=== PATIENT | female | born 1945 | race Caucasian/White ===

== ENCOUNTER 2020-10-02 08:04 | Outpatient (REF) | payer MEDICARE, SELFPAY ==
[2020-10-02 11:30] LABS: MANUAL DIFF FLAG NO
[2020-10-02 11:49] LABS: Basophils Percent Auto 0.4 % (0-2); Eosinophils Absolute Auto 0.2 X10*3/uL (0.0-0.4); Eosinophils Percent Auto 1.9 % (0-4); Hemoglobin 14.7 g/dl (12.0-16.0); Imm Gran Abs Auto 0.02 X10*3/uL (0.00-0.03); Imm Gran Pct Auto 0.2 % (0.0-0.4); Lymphocytes Absolute Auto 2.6 X10*3/uL (1.2-4.9); Lymphocytes Percent Auto 26.7 % (20-40); Mean Corpuscular HGB Conc 32.7 g/dl (31.0-35.0); Mean Corpuscular Hemoglobin 30.1 pg (27.0-33.0); Mean Platelet Volume 12.1 fL (9.4-12.3); Monocytes Absolute Auto 0.6 X10*3/uL (0.1-1.2); Monocytes Percent Auto 6.5 % (2-11); Neutrophils Absolute Auto 6.3 X10*3/uL (2.0-8.3); Neutrophils Percent Auto 64.3 % (45-73); Platelet Count 220 X10*3/uL (160-400); Red Blood Count 4.89 X10*6/uL (4.20-5.50); Red Cell Distribution Width 17.5 % (11.0-16.0); White Blood Count 9.8 X10*3/uL (4.8-10.8)
[2020-10-02 12:11] LABS: Alanine Aminotransferase 38 U/L (0-31); Albumin Level 3.8 g/dL (3.5-5.0); Alkaline Phosphatase 96 U/L (39-117); Anion Gap 14 (12-20); Aspartate Amino Transferase 34 U/L (5-31); Bilirubin Total 0.4 mg/dL (0.0-1.0); Blood Urea Nitrogen 20 mg/dL (9-16); Calcium 8.8 mg/dL (8.4-10.2); Carbon Dioxide 29 mmol/L (22-29); Chloride 102 mmol/L (96-108); Cholesterol 167 mg/dL; Estimated Glomerular Filt Rate 56; Glucose Fasting 115 mg/dL (60-99); HDL Cholesterol 48 mg/dL; LDL Cholesterol Calculated 95 mg/dl; Potassium 4.2 mmol/l (3.3-5.1); Sodium 141 mmol/L (135-145); Total Protein 6.6 g/dL (6.5-8.0); Triglycerides 121 mg/dL
[2020-10-02 12:18] LABS: Estimated Average Glucose 131 mg/dL; Hemoglobin A1c % 6.2 %
[2020-10-02 12:21] LABS: Reflex LDLD? No
[2020-10-02 12:27] LABS: Thyroid Stimulating Hormone 5.33 uIU/mL (0.32-4.0)
[2020-10-02 12:40] LABS: Appearance Urine CLOUDY; Color Urine YELLOW; Glucose Urine UA NEG (NEG); Leukocyte Esterase Urine NEG (NEG); Nitrite Urine NEG (NEG); Specific Gravity - Urine >= 1.030 (1.005-1.025); Urine Blood NEG (NEG); Urine Ketones 5 MG/DL (NEG); Urine Protein 3+ MG/DL (NEG-TRACE)
[2020-10-02 12:45] LABS: Creatinine Urine 178.98 mg/dL
[2020-10-02 13:16] LABS: Bacteria Urine 1+ /LPF; RBC Urine 0-2 /HPF (0); Squamous Epithelial Cell Urine 3+ /LPF; WBC Urine 0-2 /HPF (0-4)
[2020-10-02 13:25] LABS: Microalbum/Creatinine Ratio Ur 1585.6 ug/mg cr
== END 2020-10-02 08:05 | disposition home or self-care (01) ==
LOC: HO.HMGCLDS 08:04
PROVIDERS: PCP Internal Medicine; Visit Provider Internal Medicine
DX: Z00.00 Encounter for general adult medical examination without abnormal findings (principal); R73.03 Prediabetes; E03.9 Hypothyroidism, unspecified; E78.00 Pure hypercholesterolemia, unspecified
CPT/HCPCS: 36415; 80053; 80061; 81001; 81003; 82043; 83036; 84443; 85025

== ENCOUNTER 2020-10-23 09:31 | Outpatient (REF) | payer MEDICARE, SELFPAY ==
--- NOTE | ~2020-10-23 | CT_ITS ---
EXAMINATION: CT CHEST WITHOUT CONTRAST CLINICAL INFORMATION: Pleural effusion COMPARISON: Previous chest x-ray most recent October 2019 and chest CTA September 2019 TECHNIQUE: Multidetector volumetric CT imaging of the chest was done. Axial MIP volume rendering provided. Sagittal and coronal reformatted images were obtained. This CT examination was performed using dose optimization techniques as appropriate, variously including the following: *Automated exposure control *Adjustment of mA and/or kV according to patient size (this includes techniques or standardized protocols for targeted exams where dose is matched to indication/reason for exam; i.e. extremities or head) *Use of iterative reconstruction technique DLP: 150 mGy-cm FINDINGS: LUNGS: There are innumerable bilateral pulmonary nodules. Comparison with previous CT scan is difficult due to presence of bilateral pleural effusions. Evaluation of the upper lungs is limited due to respiratory motion. There are numerous small bilateral upper lobe nodules, largest measuring 4 mm in the left upper lobe axial image 148 series 5. There is a 1 cm nodule in the superior segment of the left lower lobe with spiculated margins axial image 193 series 5. This probably corresponds to a 4 mm nodule on September 2019 exam axial image 163 series 7 and is increased in size. There is a lobulated 9 mm left lower lobe nodule axial image 394 series 5. There is an adjacent lobulated peripheral or subpleural 5 x 12 mm left lower lobe nodule axial image 409 series 5. These nodules may be decreased in size compared to September 2019 exam, axial image 303 21 series 7 on September 2019 exam. MEDIASTINUM: There is shotty mediastinal lymphadenopathy. The heart is enlarged. There is a small pericardial effusion. There is moderate coronary artery calcification. There is mild aortic valve calcification. The ascending thoracic aorta is upper normal in size measuring 4 cm. There are small mediastinal lymph nodes. Appears similar to previous exam. No enlarged lymph nodes are seen. PLEURA: There is a small right pleural effusion. This is decreased from previous exam. There is no left pleural effusion. AXILLA: No lymphadenopathy. UPPER ABDOMEN: Unremarkable. OSSEOUS STRUCTURES: There are degenerative changes of the spine. CT/CT chest wo con IMPRESSION: Very small right pleural effusion. No left pleural effusion. Pleural effusions have decreased in size compared to September 2019 exam. Innumerable bilateral pulmonary nodules. These are difficult to compare with previous CT exam due to the presence of significant pleural effusions. 1 cm nodule in the superior segment of the left lower lobe probably increased from previous exam. 2 adjacent lobulated nodules in the left lower lobe that are probably decreased in size from previous September 2019 exam. Infectious, inflammatory and neoplastic processes should be considered. Short-term chest CT follow-up in 3-6 months, PET/CT scan, or tissue sampling could be considered. Shotty mediastinal lymphadenopathy. Enlarged heart. Coronary artery artery and aortic valve calcification. Small pericardial effusion.
== END 2020-10-23 09:32 | disposition home or self-care (01) ==
LOC: HO.CT 09:31
PROVIDERS: PCP Internal Medicine; Visit Provider Internal Medicine
DX: J90 Pleural effusion, not elsewhere classified (principal)
CPT/HCPCS: 71250

== ENCOUNTER → 2020-11-30 10:23 | Outpatient (BNVA) | payer MEDICARE, SELFPAY | PROVIDERS: PCP Internal Medicine; Visit Provider Surgery | DX: R91.1 Solitary pulmonary nodule (principal); I48.91 Unspecified atrial fibrillation; Z87.891 Personal history of nicotine dependence; Z79.01 Long term (current) use of anticoagulants; Z79.899 Other long term (current) drug therapy | CPT/HCPCS: 99212 ==

== ENCOUNTER 2020-12-11 09:13 | Outpatient (REF) | payer MEDICARE, SELFPAY ==
--- NOTE | ~2020-12-11 | PE_ITS ---
EXAMINATION: Fluorine-18 FDG PET/CT Scan CLINICAL INDICATION: Initial treatment management. Solitary pulmonary nodule. PROCEDURE: 76 minutes following the intravenous administration of 16.1 mCi of fluorine 18 FDG, images from the base of the skull to the mid thighs were obtained using a combined PET/CT scanner with CT scan based attenuation correction. No oral contrast was administered. No intravenous contrast was administered. Transverse, coronal, sagittal, and volume reconstruction projections were obtained. The patient's blood glucose as determined by a finger stick, was 115 mg/dl immediately prior to injection. Total CT exam dose-length product 638.70 mGy-cm * These CT images were obtained using dose optimization techniques as appropriate, variously including the following: Automated exposure control * Adjustment of mA and/or kV according to patient size (this includes techniques or standardized protocols for targeted exams where dose is matched to indication/reason for exam; i.e. extremities or head) * Use of iterative reconstruction technique COMPARISON: No previous PET/CT scan is available for comparison. CT scan of the chest dated 10/23/2020 is available for comparison. FINDINGS: (Slice numbers described in this report are numbered superiorly to inferiorly with slice #1 in the head) NECK AND VISUALIZED HEAD: No foci of abnormal FDG activity are noted. The distribution of FDG activity is physiological. There is no cervical lymphadenopathy. THORAX: There is a mildly FDG avid 1.2 x 1.0 cm pulmonary nodule in the medial aspect of the superior segment of the left lower lobe, SUVmax 2.9, slice 78/267. This nodule is not significantly changed compared with the recent diagnostic CT scan of the chest dated 10/23/2020. Multiple additional much smaller subcentimeter pulmonary nodules are present bilaterally, and these were better visualized on the 10/23/2020 CT scan. The largest of these subcentimeter nodules is a 0.4 cm nodule in the left upper lobe, slice 73/267. All of these subcentimeter nodules are much too small to be characterized on the FDG PET images. There are no additional foci of abnormal FDG activity present in the chest. A few subcentimeter mediastinal lymph nodes are present and none of these show abnormal FDG activity. There is no pleural or pericardial fluid, or pneumothorax. ABDOMEN AND PELVIS: No foci of abnormal FDG activity are present in the abdomen or pelvis. There is FDG activity of mild intensity present throughout the gastrointestinal tract, most prominently diffuse activity in the stomach. There is no focal component in the gastrointestinal tract and all this activity is likely physiological. There is diverticulosis without evidence of diverticulitis. The hollow viscera are otherwise unremarkable. The liver, gallbladder, spleen, kidneys, adrenal glands, and pancreas appear unremarkable. The pelvic organs are unremarkable. There is no retroperitoneal, mesenteric, pelvic or inguinal lymphadenopathy. MUSCULOSKELETAL: There is mildly increased FDG activity in the glenohumeral articulation of the right shoulder likely arthritic. No other foci of abnormal FDG activity are present in the osseous structures. There are degenerative changes in the spine and a mild thoracolumbar scoliosis is present with lumbar convexity to the right. There are no suspicious sclerotic or lytic lesions visualized. VASCULAR: Diffuse vascular calcifications including coronary are noted. PET/PET CT fusion skull to thigh IMPRESSION: 1. An FDG avid left lower lobe pulmonary nodule is strongly suspicious for malignancy. Biopsy of this nodule is recommended, if clinically indicated. 2. Multiple additional subcentimeter nodules are present as described above and better visualized on the recent 10/23/[address] scan. All of these are too small to be characterized on the FDG PET images. Continued monitoring of these with diagnostic CT imaging is recommended. 3. No additional abnormalities suspicious for metastatic or other malignant lesions are noted. 4. Diffuse vascular calcifications including coronary.
== END 2020-12-11 09:14 | disposition home or self-care (01) ==
LOC: HO.PET 09:13
PROVIDERS: PCP Internal Medicine; Visit Provider Surgery
DX: Z13.89 Encounter for screening for other disorder (principal)

== ENCOUNTER 2020-12-14 08:38 | Outpatient (REF) | payer MEDICARE, SELFPAY ==
--- NOTE | ~2020-12-14 | MM_ITS ---
EXAMINATION: MM SCREENING DIGITAL BREAST TOMOSYNTHESIS, BILATERAL CLINICAL INFORMATION: Screening. Asymptomatic. The lifetime risk of breast cancer based on the Tyrer-Cuzick Model is 3%. COMPARISON: Mammography: 09/06/2019, 08/30/2018, 04/16/2017 TECHNIQUE: Digital breast tomosynthesis is performed in both the craniocaudal and mediolateral oblique views along with computer-aided detection (CAD). Synthesized 2D images are generated from the tomosynthesis. FINDINGS: There are scattered areas of fibroglandular density (ACR BI-RADS breast composition Category b). The left breast shows no interval mass or architectural abnormality. There is stable small nodularity likely intraparenchymal nodes mid outer and mid inner left breast similar to prior studies. Neither breast shows abnormal calcifications. The bilateral axilla and skin contours are unremarkable. The right breast has a 0.6 cm nodule mid upper outer quadrant, approximately 5 cm from nipple, increased in size from prior studies. There may be a fatty notch suggesting intraparenchymal node. Patient will be recalled for additional imaging. MM/MM tomosynthesis screening BI IMPRESSION: 1. Right: Nodule 0.6 cm upper outer quadrant possibly intraparenchymal node. 2. Left: No mammographic evidence of malignancy. ASSESSMENT: BI-RADS 0: Incomplete - Need Additional Imaging Evaluation RECOMMENDATION: 1. Additional views of the right breast (3-D spot CC, 3-D spot MLO). 2. Targeted ultrasound if warranted after review of the additional views. 3. Radiology department staff will contact the patient for additional imaging. This patient's information was entered into a reminder system with a target due date for their next mammogram.
== END 2020-12-14 08:39 | disposition home or self-care (01) ==
LOC: HO.MAMMO 08:38
PROVIDERS: PCP Internal Medicine; Visit Provider Internal Medicine
DX: Z12.31 Encounter for screening mammogram for malignant neoplasm of breast (principal)
CPT/HCPCS: 77063; 77067

== ENCOUNTER → 2020-12-21 09:11 | Outpatient (BNVA) | payer MEDICARE, SELFPAY | PROVIDERS: PCP Internal Medicine; Visit Provider Surgery | DX: R91.1 Solitary pulmonary nodule (principal); Z79.899 Other long term (current) drug therapy; Z79.82 Long term (current) use of aspirin; Z79.01 Long term (current) use of anticoagulants | CPT/HCPCS: 99212 ==

== ENCOUNTER 2020-12-28 13:46 | Outpatient (REF) | payer MEDICARE, SELFPAY ==
--- NOTE | 2020-12-28 13:51 | ECG_ITS ---
Test Reason : AFIB Blood Pressure : / mmHG Vent. Rate : 075 BPM Atrial Rate : 078 BPM P-R Int : 000 ms QRS Dur : 106 ms QT Int : 376 ms P-R-T Axes : 000 057 219 degrees QTc Int : 419 ms Atrial fibrillation with premature ventricular or aberrantly conducted complexes ST & T wave abnormality, consider inferior ischemia Abnormal ECG When compared with ECG of 07-DEC-2019 10:19, Atrial fibrillation has replaced Sinus rhythm Vent. rate has increased BY 33 BPM Questionable change in QRS axis Referred By: Owen Molina Electronically Signed By:Dalton Sharma
[2020-12-28 14:08] LABS: MANUAL DIFF FLAG NO
[2020-12-28 14:12] LABS: Basophils Absolute Auto 0.1 X10*3/uL (0.0-0.2); Basophils Percent Auto 0.5 % (0-2); Eosinophils Absolute Auto 0.1 X10*3/uL (0.0-0.4); Eosinophils Percent Auto 0.8 % (0-4); Hemoglobin 14.5 g/dl (12.0-16.0); Imm Gran Abs Auto 0.02 X10*3/uL (0.00-0.03); Imm Gran Pct Auto 0.2 % (0.0-0.4); Lymphocytes Absolute Auto 2.1 X10*3/uL (1.2-4.9); Mean Corpuscular Hemoglobin 31.2 pg (27.0-33.0); Mean Corpuscular Volume 94.6 fL (80-98); Mean Platelet Volume 11.8 fL (9.4-12.3); Monocytes Absolute Auto 0.7 X10*3/uL (0.1-1.2); Monocytes Percent Auto 7.3 % (2-11); Neutrophils Absolute Auto 6.3 X10*3/uL (2.0-8.3); Neutrophils Percent Auto 68.2 % (45-73); Platelet Count 205 X10*3/uL (160-400); Red Blood Count 4.65 X10*6/uL (4.20-5.50); Red Cell Distribution Width 17.2 % (11.0-16.0); White Blood Count 9.3 X10*3/uL (4.8-10.8)
[2020-12-28 14:18] LABS: INTERNATIONAL NORM RATIO 1.4 (0.9-1.1); Prothrombin Time 16.5 SEC (10.8-13.0)
[2020-12-28 14:37] LABS: Blood Urea Nitrogen 19 mg/dL (9-16); Estimated Glomerular Filt Rate 53
== END 2020-12-28 13:47 | disposition home or self-care (01) ==
LOC: HO.LAB 13:46
PROVIDERS: PCP Internal Medicine; Visit Provider Surgery
DX: Z01.810 Encounter for preprocedural cardiovascular examination (principal); I48.91 Unspecified atrial fibrillation; R91.1 Solitary pulmonary nodule
CPT/HCPCS: 36415; 82565; 84520; 85025; 85610; 93005

== ENCOUNTER 2021-01-09 13:05 | Outpatient (REF) | payer MEDICARE, SELFPAY ==
--- NOTE | ~2021-01-09 | MM_ITS ---
EXAMINATION: MM DIAGNOSTIC DIGITAL BREAST TOMOSYNTHESIS, RIGHT US TARGETED RIGHT BREAST ULTRASOUND CLINICAL INFORMATION: Right breast nodule. COMPARISON: Mammography: 12/14/2020 and studies dating back to 03/16/2015. TECHNIQUE: Digital breast tomosynthesis is performed. 2D images are generated from the tomosynthesis. The following views are obtained: Spot compression craniocaudal and mediolateral oblique projections. Targeted right breast ultrasound. FINDINGS: There are scattered areas of fibroglandular density (ACR BI-RADS breast composition Category b). Additional views again demonstrate a few adjacent circumscribed densities about the upper outer aspect of the right breast the largest of which measures approximately 5 mm in diameter. Targeted right breast ultrasound demonstrates some adjacent well-circumscribed homogeneously echogenic structures with the appearance of lipomas about the upper outer quadrant. No suspicious solid mass or region of abnormal distal sound shadowing was appreciated. Results are discussed with the patient at time of visit. MM/MM tomosynthesis added views R IMPRESSION: Right breast densities correspond to a homogeneously hyperechoic structures consistent with lipomas. ASSESSMENT: BI-RADS 2: Benign. RECOMMENDATION: Routine annual mammography screening due in 12 months. This patient's information was entered into a reminder system with a target due date for their next mammogram.
--- NOTE | ~2021-01-09 | US_ITS ---
EXAMINATION: US DIAGNOSTIC ULTRASOUND BREAST, RIGHT CLINICAL INFORMATION: Nodules upper outer quadrant. COMPARISON: Mammography of same day and studies dating back to March 16, 2015. TECHNIQUE: Ultrasound of the breast is performed with real-time bloom scale imaging and color Doppler. FINDINGS: Targeted right breast ultrasound demonstrates some adjacent well-circumscribed homogeneously echogenic structures with the appearance of lipomas about the upper outer quadrant. No suspicious solid mass or region of abnormal distal sound shadowing was appreciated. Results are discussed with the patient at time of visit. US/US breast RT limited IMPRESSION: Right breast densities correspond to homogeneously hyperechoic structures consistent with lipomas. ASSESSMENT: BI-RADS 2: Benign RECOMMENDATION: Routine annual mammography screening due in 12 months.
== END 2021-01-09 13:06 | disposition home or self-care (01) ==
LOC: HO.MAMMO 13:05
PROVIDERS: Visit Provider Internal Medicine
DX: R92.2 Inconclusive mammogram (principal)
CPT/HCPCS: 76642; 77061; 77065

== ENCOUNTER 2021-02-08 08:23 | Outpatient (REF) | payer MEDICARE, SELFPAY ==
--- NOTE | ~2021-02-08 | XR_ITS ---
EXAMINATION: XR CHEST CLINICAL INFORMATION: Solitary pulmonary nodule COMPARISON: None TECHNIQUE: 2 views of the chest were obtained. FINDINGS: The lungs are hyperexpanded and clear. There is minimal bibasilar linear density likely scarring or atelectasis. The heart size and pulmonary vascularity is normal. No gross bony abnormality seen. XR/XR chest 2V IMPRESSION: Minimal atelectatic changes or scarring in both lung bases. Otherwise no acute process
== END 2021-02-08 08:24 | disposition home or self-care (01) ==
LOC: HO.XRAY 08:23
PROVIDERS: PCP Internal Medicine; Visit Provider Surgery
DX: R91.1 Solitary pulmonary nodule (principal); C34.32 Malignant neoplasm of lower lobe, left bronchus or lung; I48.91 Unspecified atrial fibrillation
CPT/HCPCS: 71046

== ENCOUNTER → 2021-03-01 08:26 | Outpatient (BNVA) | payer MEDICARE, SELFPAY | PROVIDERS: PCP Internal Medicine; Visit Provider Surgery | DX: C34.32 Malignant neoplasm of lower lobe, left bronchus or lung (principal); Z79.899 Other long term (current) drug therapy; Z48.813 Encounter for surgical aftercare following surgery on the respiratory system; Z90.2 Acquired absence of lung [part of] | CPT/HCPCS: 99212 ==

== ENCOUNTER → 2021-03-22 08:55 | Outpatient (BNVA) | payer MEDICARE, SELFPAY | PROVIDERS: PCP Internal Medicine; Visit Provider Surgery | DX: C34.32 Malignant neoplasm of lower lobe, left bronchus or lung (principal); Z79.899 Other long term (current) drug therapy; Z90.2 Acquired absence of lung [part of] | CPT/HCPCS: 99212 ==

== ENCOUNTER → 2021-05-09 11:31 | Outpatient (BNVA) | payer MEDICARE, SELFPAY | PROVIDERS: PCP Internal Medicine; Visit Provider Hospitalist | DX: R06.00 Dyspnea, unspecified (principal) | CPT/HCPCS: 99211 ==

== ENCOUNTER 2021-05-21 09:28 | Inpatient (IN) | payer MEDICARE, SELFPAY ==
[2021-05-21] VITALS (9 sets, daily range): BP systolic 112–154; BP diastolic 50–65; PULSE 62–108; RESP 18–24; TEMP 36.2–37.1; O2SAT 94–98; BMI 27.9
--- NOTE | ~2021-05-21 | XR_ITS ---
EXAMINATION: XR CHEST CLINICAL INFORMATION: Left-sided post thoracentesis COMPARISON: CT angiogram 05/21/2021 TECHNIQUE: 2 views of the chest were obtained. FINDINGS: Inspiration and expiration views of chest were obtained and reveal significant improvement in the left pleural effusion. There is some residual pleural effusion with haziness and blunting of CP angle noted. The heart size is normal. There is increased bilateral interstitial markings in both lungs likely interstitial pneumonitis or edema. Recent CT revealed multiple bilateral lung micronodules. No gross bony abnormality seen. The chest wall is unremarkable. XR/XR chest 2V IMPRESSION: Interval decrease in left pleural effusion status post thoracentesis. No visible pneumothorax. There is residual left pleural effusion seen. Increase interstitial markings likely interstitial pneumonitis, less likely edema.
--- NOTE | ~2021-05-21 | US_ITS ---
EXAMINATION: US GUIDED LEFT THORACENTESIS CLINICAL INFORMATION: SOB and effusion. COMPARISON: None TECHNIQUE: Following explaining ultrasound-guided left thoracentesis procedure, benefits and risk, a written consent was obtained. Patient was placed sitting upright on ultrasound stretcher, and preliminary ultrasound imaging was obtained through the posterior chest. An optimal site was selected along a posterior axillary line and marked on the skin. The marked site was cleaned and draped in the usual sterile manner. 1% lidocaine was injected at the puncture site. Through a small skin incision, a 4-[employer] catheter was advanced into the pleural space. After observing fluid return, stylet was withdrawn and catheter connected to a vacuum bottle via a connecting cannula. After obtaining all fluid and no more fluid return was seen, the catheter was withdrawn making sure no air leaked in. Sterile dressing applied postprocedure. Patient tolerated the procedure extremely well. FINDINGS: On preliminary ultrasound imaging, there is echogenic fluid with septations visualized within the pleural space. Approximately 2.1 L of katia-colored fluid was drained from the left pleural space. US/US thoracentesis IMPRESSION: Successful ultrasound-guided left thoracentesis performed with approximately 2.1 L of katia-colored fluid removed. Part of this fluid was sent to lab as per physician's request for further analysis.
--- NOTE | ~2021-05-21 | CT_ITS ---
EXAMINATION: CT ANGIOGRAM OF THE CHEST WITH AND WITHOUT CONTRAST (CT PULMONARY ANGIOGRAM FOR PE) CLINICAL INFORMATION: Reason for Exam rule out pe shortness of breath. COMPARISON: Previous chest x-rays most recent from earlier the same day and previous chest CT October 2020 TECHNIQUE: Prior to contrast administration, noncontrast localization images were obtained. Subsequently, multidetector volumetric imaging was performed from the thoracic inlet to below the diaphragms following the administration of 63 mL Omnipaque 350 intravenous contrast. No contrast reaction reported Sagittal, coronal, and MIP oblique sagittal reformatted images were obtained on the CT workstation, uploaded to PACS, and reviewed. This CT examination was performed using dose optimization techniques as appropriate, variously including the following: *Automated exposure control *Adjustment of mA and/or kV according to patient size (this includes techniques or standardized protocols for targeted exams where dose is matched to indication/reason for exam; i.e. extremities or head) *Use of iterative reconstruction technique Total exam dose-length product 276 mGy-cm FINDINGS: QUALITY OF STUDY/CONTRAST BOLUS: Satisfactory. PULMONARY ARTERIES: No central or segmental pulmonary emboli. THORACIC AORTA: No aneurysm or dissection. LUNG: There are innumerable small bilateral pulmonary nodules. Largest pulmonary nodule measures 5 mm in the right lower lobe axial image 335 series 8 and 9 mm in the left upper lobe axial image 221 series 8. Pulmonary nodules appear increased in number compared to previous exam October 2020 There is compressive atelectasis of the left upper and left lower lobes from the large left pleural effusion.. PLEURA: There is a new large left pleural effusion. MEDIASTINUM: There are small mediastinal lymph nodes. No enlarged lymph nodes are seen. The heart is slightly enlarged. There is no pericardial effusion. There is coronary artery calcification. The thoracic aorta is normal in caliber. No evidence of septal bowing or right heart strain. CHEST WALL/AXILLA: No axillary or internal mammary lymphadenopathy. OSSEOUS STRUCTURES: There is kyphoplasty change of the T11 vertebral body. There is slight loss of height of superior endplate of the T8 T12 vertebral body questionable for mild compression fracture. There are fractures of the left anterior eighth and ninth ribs. These findings are new in the interval from October 2020 exam. UPPER ABDOMEN: There is fullness of the left adrenal gland. There may be mild fullness of the bilateral upper pole renal calyces. There is reflux of contrast into the hepatic veins to suggest elevated right heart pressures. CT/CT angio chest PE protocol IMPRESSION: No evidence of pulmonary embolism. New large left pleural effusion and compressive atelectasis of the left upper and lower lobes. Interval increase in pulmonary nodules. Left anterior eighth and ninth rib fractures, question mild T12 compression fracture and T11 vertebral body kyphoplasty new in the interval from October 2020 VTE: negative
--- NOTE | ~2021-05-21 | XR_ITS ---
EXAMINATION: XR CHEST CLINICAL INFORMATION: Shortness of breath COMPARISON: Chest radiographs 02/08/2021, 10/28/2019, CT chest noncontrast 11/20/2020, PET/CT 12/11/2020. TECHNIQUE: Portable upright AP view of the chest was obtained. FINDINGS: There is new opacity left mid and lower zone likely primarily pleural effusion. There is generalized enlargement cardiopericardial silhouette with pulmonary vascular congestion. The right lung shows no lobar or segmental airspace opacity or focal groundglass opacity. There may be some trace fluid blunting right costophrenic sulcus, decreased from 02/08/2021. There is opacity overlying the lower thoracic spine likely vertebral augmentation, new from prior imaging. XR/XR chest 1V IMPRESSION: 1. Moderate left effusion representing change from prior study 02/08/2021. Trace right fluid. 2. Enlarged cardiopericardial silhouette with pulmonary vascular congestion. 3. Status post lower thoracic vertebral augmentation since prior imaging.
--- NOTE | ~2021-05-21 | XR_ITS ---
EXAMINATION: XR CHEST CLINICAL INFORMATION: Follow-up effusion. COMPARISON: Chest 05/23/2021 TECHNIQUE: 2 views of the chest were obtained. FINDINGS: The lungs are well-expanded with right basilar opacity likely small pleural effusion with underlying atelectasis. There is no left-sided pleural effusion. No pneumothorax. There is increased vascularity suggestive of mild congestion with a normal size heart. No gross bony abnormality. XR/XR chest 2V IMPRESSION: Small right pleural effusion with underlying atelectasis. Moderate pulmonary vascular congestion. Normal-sized heart.
--- NOTE | 2021-05-21 10:08 | ED_ITS ---
HPI - SOB/Dyspnea General Chief Complaint: Dyspnea Stated Complaint: defficulty breathing Time Seen by Provider: 05/21/21 10:08 Source: patient Mode of arrival: ambulatory Limitations: no limitations History of Present Illness HPI Narrative: 75-year-old female with a history of adenocarcinoma, COPD due to long history of smoking, presented with shortness of breath for the past 2 weeks. Patient was seen and evaluated by research fellow with think that patient's symptoms are due to lung issue. Patient had a recent pulmonary function test Related Data Home Medications Medication Instructions Recorded Confirmed apixaban 5 mg tablet (Eliquis) 5 mg PO BID 11/30/20 05/21/21 aspirin 81 mg tablet,delayed 81 mg PO DAILY 11/30/20 05/21/21 release furosemide 40 mg tablet 40 mg PO DAILY 11/30/20 05/21/21 rosuvastatin 20 mg tablet 20 mg PO DAILY 11/30/20 05/21/21 diltiazem HCl 240 mg 240 mg PO BEDTIME 02/08/21 05/21/21 capsule,extended release 24 hr, controlled levothyroxine 112 mcg tablet 112 mcg PO DAILY 02/08/21 05/21/21 sgiomaaf-bhl-gkynl acid 0.4 1 tab PO DAILY 02/08/21 05/21/21 mg-lycopene 300 mcg-lutein 250 mcg tablet (Centrum Silver) albuterol sulfate 90 mcg/actuation 2 puff PO Q4H 05/21/21 05/21/21 breath activated powder inhaler (ProAir RespiClick) diltiazem HCl 120 mg 120 mg PO DAILY 05/21/21 05/21/21 capsule,extended release 24 hr, controlled (DILT-XR) metoprolol succinate 50 mg 1 tab PO DAILY 05/21/21 05/21/21 tablet,extended release 24 hr Previous Rx's Medication Instructions Recorded dexamethasone 4 mg tablet 4 mg PO BID #100 tab 05/15/21 (Decadron) folic acid 1 mg tablet 1 mg PO DAILY #90 tab 05/15/21 ondansetron HCl 4 mg tablet 8 mg PO Q8H #60 tab 05/15/21 (Zofran) Allergies Allergy/AdvReac Type Severity Reaction Status Date / Time codeine [CODEINE] Allergy Severe SEVERE Verified 03/22/21 09:12 HEADACHE latex [LATEX] Allergy Intermediate RASH/HIVES Verified 03/22/21 09:12 Review of Systems Review of Systems: All other systems are reviewed and are negative Constitutional: Reports as per HPI and Reports no additional constitutional complaints Eyes: Reports as per HPI and Reports no additional eye complaints Reports system reviewed and no additional complaints, except as documented Cardiovascular: Reports as per HPI and Reports no additional cardiovascular complaints Respiratory: Reports as per HPI and Reports no additional respiratory complaints Gastrointestinal: Reports as per HPI and Reports no additional gastrointestinal complaints Genitourinary: Reports no additional female genitourinary complaints Musculoskeletal: Reports no additional musculoskeletal complaints Skin/Breast: Reports system reviewed and no additional complaints, except as docu Psychiatric: Reports no additional psychiatric complaints Endocrine: Reports no additional endocrine complaints Hematologic/Lymphatic: Reports no additional hematologic/lymphatic complaints Allergic/Immunologic: Reports no additional allergic/immunologic complaints Reports system reviewed and no additional complaints, except as documented and Reports Abnormal speech present [facility] Past Medical History Medical History Adenocarcinoma of left lung, stage 4 (~01/2021) Adenocarcinoma of left lung, stage 4 Atrial fibrillation (~09/2019) CAD (coronary artery disease) History of MT (myocardial infarction) (~2002) History of pleural effusion (~09/2019) Hypertension Hypothyroidism Malignant neoplasm of lower lobe, left bronchus or lung (~01/2021) Osteoporosis Personal history of nicotine dependence Pulmonary nodules Surgical History History of basal cell carcinoma excision (~04/02/98) History of cardioversion (~12/07/19) History of heart artery stent History of lung surgery (~01/22/21) Social History Social History Household Members: None Alcohol intake: never Patient Tobacco Use Status: Former Tobacco user Use of substances other than those prescribed or required for medical reasons: No Advance Directives: No Advance Directives Information Provided: No Physical Exam Vital Signs: Vital Signs: Last Vital Signs Temp 98.0 F 05/21/21 10:59 Pulse 90 05/21/21 13:03 Resp 20 05/21/21 10:59 BP 154/63 H 05/21/21 10:59 Pulse Ox 95 05/21/21 10:59 Oxygen Flow Rate 1 05/21/21 09:49 Body Mass Index 27.9 Vital signs have been reviewed as appeared to be correct. Blood pressure normal. Heart rate elevated. Respiration rate elevated. Temperature normal. Oxygen saturation normal. Appearance: Alert. Oriented X3. No acute distress. Head: Normal external exam. Normocephalic. Atraumatic. No Wheeler signs noted. No raccoon eyes noted Eyes: PERRLA. EOMI. Conjunctiva and sclera normal. Eyelids normal. ENT: TM's Normal. Pharynx normal. Uvula midline. Moist mucous membranes. No trismus noted. No drooling noted. No muffled voice noted. Neck: Normal inspection. Neck supple. FROM. No adenopathy. Thyroid Normal. No meningeal signs. No neck mass noted. CVS: Normal heart rate and rhythm. Heart sound normal. No murmurs noted. Pulses normal throughout. Respiratory: No respiratory distress. Painless inspiration. Breath sounds normal. No wheezes/rales/rhonchi noted. Chest nontender. No accessory muscle usage noted or decreased air movement noted. Abdomen: Soft and nontender. Bowel sounds normal in all 4 quadrants. No distention noted. No organomegaly noted. No visible injury noted. Back: No CVA tenderness. Full range of motion noted. Skin: Skin warm and dry. Normal skin color. Normal skin turgor. No rashes/lesions/lacerations noted. Extremities: No lower extremity edema. Extremities exhibit normal range of motion. Extremities nontender. Neuro: Oriented X 3. Cranial nerve exam: II-XII are grossly intact No motor deficit. No sensory deficit. Reflexes normal. Course Course Course Narrative: Assessment and plan. 75-year-old female came in for shortness of breath, exam and history of the patient are consistent of mix of COPD exacerbation/CHF exacerbation. Because history of lung cancer CTA of the chest was considered which revealed no PE. Will admit the patient for further cardiac/pulmonary evaluation. Start on Lasix/bronchodilator. MDM - SOB/Dyspnea Lab Data Attestation: I reviewed the patient's lab results. Result diagrams: 05/21/21 10:53 05/21/21 10:53 Labs: Lab Results 05/21/21 05/21/21 05/21/21 Range/Units 10:45 10:53 10:53 WBC 11.6 H (4.8-10.8) X10*3/uL RBC 4.61 (4.20-5.50) X10*6/uL Hgb 14.4 (12.0-16.0) g/dl Hct 43.2 (37-47) % MCV 93.7 (80-98) fL MCH 31.2 (27.0-33.0) pg MCHC 33.3 (31.0-35.0) g/dl RDW 16.6 H (11.0-16.0) % Plt Count 265 (160-400) X10*3/uL MPV 11.3 (9.4-12.3) fL Immature Gran % (Auto) 0.6 H (0.0-0.4) % Neut % (Auto) 88.3 H (45-73) % Lymph % (Auto) 9.9 L (20-40) % [place] % (Auto) 0.5 L (2-11) % Eos % (Auto) 0.6 (0-4) % Baso % (Auto) 0.1 (0-2) % Lymph # (Auto) 1.2 (1.2-4.9) X10*3/uL [place] # (Auto) 0.1 (0.1-1.2) X10*3/uL Eos # (Auto) 0.1 (0.0-0.4) X10*3/uL Baso # (Auto) 0.0 (0.0-0.2) X10*3/uL Abs Immat Gran (auto) 0.07 H (0.00-0.03) X10*3/uL Absolute Neuts (auto) 10.2 H (2.0-8.3) X10*3/uL Absolute Nucleated RBC 0.000 (0.0-0.012) X10*3/uL Nucleated RBC % (auto) 0.0 (0.0-0.2) /100WBC Smear Tech's Comments VERIFIED Sodium 140 (135-145) mmol/L Potassium 4.8 (3.3-5.1) mmol/L Chloride 103 (96-108) mmol/L Carbon Dioxide 29 (22-29) mmol/L Anion Gap 13 (12-20) BUN 33 H D (9-16) mg/dL Creatinine 0.95 (0.5-1.4) mg/dL Estim Creat Clear Calc 50.6 Estimated GFR 57 Random Glucose 119 H (60-115) mg/dL Calcium 8.8 (8.4-10.2) mg/dL Magnesium (1.6-2.6) mg/dL Total Bilirubin 0.6 (0.0-1.0) mg/dL Direct Bilirubin 0.3 (0.0-0.5) mg/dL AST 32 H D (5-31) U/L ALT 36 H (0-31) U/L Alkaline Phosphatase 102 (39-117) U/L Troponin I High Sens (<3.5-17.0) ng/L B-Natriuretic Peptide (<100) pg/mL Total Protein 6.9 (6.5-8.0) g/dL Albumin 4.0 (3.5-5.0) g/dL Lipase 54 (8-78) U/L Urine Color Urine Appearance Urine pH (5.0-8.0) Ur Specific [place] (1.005-1.025) Urine Protein (NEG-TRACE) MG/DL Urine Glucose (UA) (NEG) MG/DL Urine Ketones (NEG) MG/DL Urine Blood (NEG) Urine Nitrite (NEG) Ur Leukocyte Esterase (NEG) Urine RBC (0) /HPF Urine WBC (0-4) /HPF Ur Squamous Epith Cells /LPF Urine Bacteria /LPF COVID-19 (RONALDO) Negative (Negative) COVID-19 Clin Com See Note 05/21/21 05/21/21 05/21/21 Range/Units 10:53 10:53 13:05 WBC (4.8-10.8) X10*3/uL RBC (4.20-5.50) X10*6/uL Hgb (12.0-16.0) g/dl Hct (37-47) % MCV (80-98) fL MCH (27.0-33.0) pg MCHC (31.0-35.0) g/dl RDW (11.0-16.0) % Plt Count (160-400) X10*3/uL MPV (9.4-12.3) fL Immature Gran % (Auto) (0.0-0.4) % Neut % (Auto) (45-73) % Lymph % (Auto) (20-40) % [place] % (Auto) (2-11) % Eos % (Auto) (0-4) % Baso % (Auto) (0-2) % Lymph # (Auto) (1.2-4.9) X10*3/uL [place] # (Auto) (0.1-1.2) X10*3/uL Eos # (Auto) (0.0-0.4) X10*3/uL Baso # (Auto) (0.0-0.2) X10*3/uL Abs Immat Gran (auto) (0.00-0.03) X10*3/uL Absolute Neuts (auto) (2.0-8.3) X10*3/uL Absolute Nucleated RBC (0.0-0.012) X10*3/uL Nucleated RBC % (auto) (0.0-0.2) /100WBC Smear Tech's Comments Sodium (135-145) mmol/L Potassium (3.3-5.1) mmol/L Chloride (96-108) mmol/L Carbon Dioxide (22-29) mmol/L Anion Gap (12-20) BUN (9-16) mg/dL Creatinine (0.5-1.4) mg/dL Estim Creat Clear Calc Estimated GFR Random Glucose (60-115) mg/dL Calcium (8.4-10.2) mg/dL Magnesium (1.6-2.6) mg/dL Total Bilirubin (0.0-1.0) mg/dL Direct Bilirubin (0.0-0.5) mg/dL AST (5-31) U/L ALT (0-31) U/L Alkaline Phosphatase (39-117) U/L Troponin I High Sens 8.7 (<3.5-17.0) ng/L B-Natriuretic Peptide 611 H (<100) pg/mL Total Protein (6.5-8.0) g/dL Albumin (3.5-5.0) g/dL Lipase (8-78) U/L Urine Color YELLOW Urine Appearance CLEAR Urine pH 6.0 (5.0-8.0) Ur Specific [place] 1.010 (1.005-1.025) Urine Protein TRACE (NEG-TRACE) MG/DL Urine Glucose (UA) NEG (NEG) MG/DL Urine Ketones NEG (NEG) MG/DL Urine Blood TRACE (NEG) Urine Nitrite NEG (NEG) Ur Leukocyte Esterase NEG (NEG) Urine RBC 0-2 (0) /HPF Urine WBC 0 (0-4) /HPF Ur Squamous Epith Cells TRACE /LPF Urine Bacteria NONE /LPF COVID-19 (RONALDO) (Negative) COVID-19 Clin Com 05/21/21 Range/Units 13:26 WBC (4.8-10.8) X10*3/uL RBC (4.20-5.50) X10*6/uL Hgb (12.0-16.0) g/dl Hct (37-47) % MCV (80-98) fL MCH (27.0-33.0) pg MCHC (31.0-35.0) g/dl RDW (11.0-16.0) % Plt Count (160-400) X10*3/uL MPV (9.4-12.3) fL Immature Gran % (Auto) (0.0-0.4) % Neut % (Auto) (45-73) % Lymph % (Auto) (20-40) % [place] % (Auto) (2-11) % Eos % (Auto) (0-4) % Baso % (Auto) (0-2) % Lymph # (Auto) (1.2-4.9) X10*3/uL [place] # (Auto) (0.1-1.2) X10*3/uL Eos # (Auto) (0.0-0.4) X10*3/uL Baso # (Auto) (0.0-0.2) X10*3/uL Abs Immat Gran (auto) (0.00-0.03) X10*3/uL Absolute Neuts (auto) (2.0-8.3) X10*3/uL Absolute Nucleated RBC (0.0-0.012) X10*3/uL Nucleated RBC % (auto) (0.0-0.2) /100WBC Smear Tech's Comments Sodium (135-145) mmol/L Potassium (3.3-5.1) mmol/L Chloride (96-108) mmol/L Carbon Dioxide (22-29) mmol/L Anion Gap (12-20) BUN (9-16) mg/dL Creatinine (0.5-1.4) mg/dL Estim Creat Clear Calc Estimated GFR Random Glucose (60-115) mg/dL Calcium (8.4-10.2) mg/dL Magnesium 2.2 (1.6-2.6) mg/dL Total Bilirubin (0.0-1.0) mg/dL Direct Bilirubin (0.0-0.5) mg/dL AST (5-31) U/L ALT (0-31) U/L Alkaline Phosphatase (39-117) U/L Troponin I High Sens (<3.5-17.0) ng/L B-Natriuretic Peptide (<100) pg/mL Total Protein (6.5-8.0) g/dL Albumin (3.5-5.0) g/dL Lipase (8-78) U/L Urine Color Urine Appearance Urine pH (5.0-8.0) Ur Specific [place] (1.005-1.025) Urine Protein (NEG-TRACE) MG/DL Urine Glucose (UA) (NEG) MG/DL Urine Ketones (NEG) MG/DL Urine Blood (NEG) Urine Nitrite (NEG) Ur Leukocyte Esterase (NEG) Urine RBC (0) /HPF Urine WBC (0-4) /HPF Ur Squamous Epith Cells /LPF Urine Bacteria /LPF COVID-19 (RONALDO) (Negative) COVID-19 Clin Com Imaging Data Chest x-ray: Radiologist's impression: 1. Moderate left effusion representing change from prior study 02/08/2021. Trace right fluid. 2. Enlarged cardiopericardial silhouette with pulmonary vascular congestion. 3. Status post lower thoracic vertebral augmentation since prior imaging. ? CT a chest: Radiologist's impression: No evidence of pulmonary embolism. New large left pleural effusion and compressive atelectasis of the left upper and lower lobes. Interval increase in pulmonary nodules. Left anterior eighth and ninth rib fractures, question mild T12 compression fracture and T11 vertebral body kyphoplasty new in the interval from October 2020 ? ECG Data Interpretation: Atrial fibrillation at 110 beats per minutes, incomplete left bundle branch block, PVCs. Discharge Plan Discharge Clinical Impression: CHF (congestive heart failure), COPD exacerbation Patient Disposition: Admitted As Inpatient Prescriptions: No Action ondansetron HCl [Zofran] 4 mg Tablet 8 mg PO Q8H Qty: 60 RF: 5 folic acid 1 mg Tablet 1 mg PO DAILY Qty: 90 RF: 4 dexamethasone [Decadron] 4 mg Tablet 4 mg PO BID Qty: 100 RF: 4 metoprolol succinate 50 mg tablet extended release 24 hr 1 tab PO DAILY RF: 0 ProAir RespiClick 90 mcg/actuation aerosol powdr breath activated 2 puff PO Q4H RF: 0 diltiazem HCl [DILT-XR] 120 mg capsule,ext.rel 24h degradable 120 mg PO DAILY RF: 0 Eliquis 5 mg tablet 5 mg PO BID RF: 0 rosuvastatin 20 mg tablet 20 mg PO DAILY RF: 0 furosemide 40 mg tablet 40 mg PO DAILY RF: 0 aspirin 81 mg tablet,delayed release (DR/EC) 81 mg PO DAILY RF: 0 levothyroxine 112 mcg tablet 112 mcg PO DAILY RF: 0 diltiazem HCl 240 mg capsule,ext.rel 24h degradable 240 mg PO BEDTIME RF: 0 Centrum Silver 0.4-300-250 mg-mcg-mcg tablet 1 tab PO DAILY RF: 0
--- NOTE | 2021-05-21 10:14 | ECG_ITS ---
Test Reason : SOB Blood Pressure : / mmHG Vent. Rate : 112 BPM Atrial Rate : 111 BPM P-R Int : 000 ms QRS Dur : 112 ms QT Int : 360 ms P-R-T Axes : 000 003 189 degrees QTc Int : 491 ms Atrial fibrillation with rapid ventricular response with premature ventricular or aberrantly conducted complexes Incomplete left bundle branch block ST & T wave abnormality, consider inferolateral ischemia Abnormal ECG When compared with ECG of 28-DEC-2020 14:00, Vent. rate has increased BY 37 BPM Incomplete left bundle branch block is now Present Referred By: Carmen Younger Electronically Signed By:ABIODUN ZUÑIGA
--- NOTE | 2021-05-21 10:20 | PC.NURSE ---
Pt alert and oriented. Pt states she started having difficulty breathing about 2 weeks ago. She was diagnosed with lung and bone cancer in January and in mid April she started having trouble breathing when she walked up and down her stairs. She said her breathing started getting worse daily and she was sob without even moving. Pt is a ex daily smoker and has history of COPD. On arrival pt satting 86-88 R/A. 2L O2 N/C applied which brought her O2 to 94-96. Pt noted to be sob with/without exertion, and working hard to breath. Audible wheezes noted. Pt denies headache/dizziness/chest pain. No c/o n/v, no fever. Pt lives alone and states she is not able to tolerate going up and down her stairs. She reports that her oncologist recommended home O2 but she refused. An iv was established and labs drawn. Meds given as documented. Commode place at bedside. Pt resting quietly, no apparent distress noted. Will continue to monitor.
--- NOTE | 2021-05-21 10:58 | PHA.MEDREC ---
Pharmacy Consult ? Medication Reconciliation Pharmacy has completed the medication reconciliation. Patient has already had her 3 days of dexamethasone for her cycle of chemo. Janae Mckee, PharmD
[2021-05-21 11:08] LABS: Basophils Percent Auto 0.1 % (0-2); Eosinophils Absolute Auto 0.1 X10*3/uL (0.0-0.4); Eosinophils Percent Auto 0.6 % (0-4); Hematocrit 43.2 % (37-47); Hemoglobin 14.4 g/dl (12.0-16.0); Imm Gran Abs Auto 0.07 X10*3/uL (0.00-0.03); Imm Gran Pct Auto 0.6 % (0.0-0.4); Lymphocytes Absolute Auto 1.2 X10*3/uL (1.2-4.9); Lymphocytes Percent Auto 9.9 % (20-40); MANUAL DIFF FLAG SCAN; Mean Corpuscular HGB Conc 33.3 g/dl (31.0-35.0); Mean Corpuscular Hemoglobin 31.2 pg (27.0-33.0); Mean Corpuscular Volume 93.7 fL (80-98); Mean Platelet Volume 11.3 fL (9.4-12.3); Monocytes Absolute Auto 0.1 X10*3/uL (0.1-1.2); Monocytes Percent Auto 0.5 % (2-11); Neutrophils Absolute Auto 10.2 X10*3/uL (2.0-8.3); Neutrophils Percent Auto 88.3 % (45-73); Platelet Count 265 X10*3/uL (160-400); Red Blood Count 4.61 X10*6/uL (4.20-5.50); Red Cell Distribution Width 16.6 % (11.0-16.0); SCAN SMEAR FLAG 1; White Blood Count 11.6 X10*3/uL (4.8-10.8)
[2021-05-21 11:18] LABS: COVID-19 Test Negative (Negative); IDNOW Serial# 9DD0AD1C
[2021-05-21 11:19] LABS: Alanine Aminotransferase 36 U/L (0-31); Alkaline Phosphatase 102 U/L (39-117); Anion Gap 13 (12-20); Aspartate Amino Transferase 32 U/L (5-31); Bilirubin Direct 0.3 mg/dL (0.0-0.5); Bilirubin Total 0.6 mg/dL (0.0-1.0); Blood Urea Nitrogen 33 mg/dL (9-16); Calcium 8.8 mg/dL (8.4-10.2); Carbon Dioxide 29 mmol/L (22-29); Chloride 103 mmol/L (96-108); Creatinine Clr Calc Pharmacy 50.6; Estimated Glomerular Filt Rate 57; Glucose Random 119 mg/dL (60-115); Lipase 54 U/L (8-78); Potassium 4.8 mmol/L (3.3-5.1); Sodium 140 mmol/L (135-145); Total Protein 6.9 g/dL (6.5-8.0)
[2021-05-21 11:20] LABS: Troponin-I High Sensitivity 8.7 ng/L (<3.5-17.0)
[2021-05-21 11:29] LABS: SLIDE REVIEW VERIFIED
[2021-05-21 11:33] LABS: B Type Natriuretic Peptide 611 pg/mL (<100)
[2021-05-21] MEDS: Furosemide 20 MG/2 ML VIAL IVPUSH (12:03)
[2021-05-21] MEDS: methylPREDNISolone Sod Succ 125 MG/2 ML VIAL IVPUSH (12:03)
--- NOTE | 2021-05-21 12:15 | PC.NURSE ---
Pt resting quietly, vss, Pt up to bedside commode x2 with assistance. Sob and decrease in O2 sat noted during transfer. Pt remains on 2L n/c. No c/o dizziness/headache. Pt awaiting room assignment.
[2021-05-21] MEDS: Albuterol/Iprat 2.5/0.5MG 3 ML AMPUL.NEB INHALE ×2 (13:02→19:53)
[2021-05-21] MEDS: Albuterol Sulfate (0.083%) 2.5 MG/3 ML VIAL.NEB INHALE (13:02)
[2021-05-21 13:19] LABS: Appearance Urine CLEAR; Color Urine YELLOW; Glucose Urine UA NEG (NEG); Leukocyte Esterase Urine NEG (NEG); Nitrite Urine NEG (NEG); UACC Culture Trigger NO; Urine Blood TRACE (NEG); Urine Ketones NEG (NEG); Urine Protein TRACE MG/DL (NEG-TRACE)
[2021-05-21 13:29] LABS: RBC Urine 0-2 /HPF (0); Squamous Epithelial Cell Urine TRACE /LPF; WBC Urine 0 /HPF (0-4)
[2021-05-21] MEDS: iohexoL 350 MG/ML 100 ML INFUS..BTL 63 ML IV (13:30)
[2021-05-21 13:50] LABS: Magnesium 2.2 mg/dL (1.6-2.6)
[2021-05-21] MEDS: 0.9 % Sodium Chloride Flush 3 ML SYRINGE IVFLUSH (16:30)
--- NOTE | 2021-05-21 16:38 | HP_ITS ---
DATE OF SERVICE: 05/21/2021 PRIMARY CARE PHYSICIAN: Jamarcus Garnica MD. REINSURANCE CLAIMS ANALYST: Dr. Moise. RENT COLLECTOR: Dr. Rogers. THORACIC SURGEON: Dr. Owen Molina. HISTORY OF PRESENTING ILLNESS: This is a 75-year-old female patient recently diagnosed to have stage IV lung cancer, status post left lower lobe wedge resection with a positive lymph node, currently receiving chemotherapy at [facility]. Her first chemotherapy was on May 17. The patient recently evaluated by Dr. Rogers from [place] and was told that she does not have any heart issues contributing to shortness of breath. She was recently evaluated by Dr. Moise with a 6-minute walk and did not qualify for oxygen. According to the patient for last 2 weeks, she has been having worsening shortness of breath, associated with cough productive of clear phlegm. She denies any fever, chills, rigors. She complains of worsening shortness of breath with exertion. She lost 20 to 30 pounds in last 2 to 3 months. She also noted significant bilateral lower extremity edema of same duration. The patient has been compliant with home medications including Lasix, beta blockers and Cardizem. She has also been placed on Decadron in the emergency room. Her workup showed an elevated D-dimer of 611, WBC of 11.6. Her BUN is slightly elevated at 33. Otherwise, normal electrolytes. Mildly elevated AST and ALT. Recent LDL is 59 with an HDL of 41, lipase of 54. A chest x-ray showed moderate left effusion that is new from the prior study of 02/08 and large cardiopericardial silhouette with pulmonary vascular congestion, status post lower thoracic vertebral augmentation. A CTA chest was obtained that did not show any pulmonary embolism, but showed significant left-sided pleural effusion and innumerable small bilateral pulmonary nodules that seems to have increased in number compared to previous study of October 2020. There is compressive atelectasis of the left upper and left lower lobes from the large left pleural effusion. There is left anterior 8th and 9th rib fractures. Question mild T12 compression fracture and T11 vertebral body kyphoplasty that seems to be new since October of 2020. EKG showed atrial fibrillation with rapid ventricular response with premature ventricular conducting complexes. The patient is now being admitted to [facility] due to worsening shortness of breath related to congestive heart failure/underlying COPD/new left-sided pleural effusion with stage IV lung cancer. PAST MEDICAL HISTORY: Significant for, 1. Atrial fibrillation since September of 2019, on Eliquis. 2. History of coronary artery disease. 3. History of CO. 4. History of hypertension. 5. Hypothyroidism. 6. Malignant neoplasm of the left lower bronchus, osteoporosis. 7. History of nicotine dependence. 8. History of pulmonary nodules. PAST SURGICAL HISTORY: 1. Status post basal cell carcinoma resection. 2. Status post cardioversion. 3. Status post stent placement. 4. History of lung surgery in January of 2021. SOCIAL HISTORY: The patient stopped smoking 1 year ago. She lives alone. Walks without assistive device. She has lost 20 to 30 pounds in last 2 to 3 months. FAMILY HISTORY: There is no family history of premature coronary artery disease. ALLERGIES: SHE IS ALLERGIC TO CODEINE THAT CAUSES SEVERE HEADACHE, AND LATEX CAUSES RASH AND HIVES. MEDICATIONS: On admission are, 1. Albuterol 2 puffs inhaler every 4 hours. 2. Eliquis 5 mg b.i.d. 3. Aspirin 81 daily. 4. Dexamethasone 4 mg b.i.d. 5. Diltiazem 240 mg at bedtime and 120 mg at daytime. 1. Folic acid 1 mg. 2. Lasix 40 mg daily. 3. Levothyroxine 112 mcg daily. 4. Metoprolol 1 tablet daily. 5. Multivitamin 1 p.o. daily. 6. Zofran 8 mg every 8 hours. 7. Crestor 20 mg daily. REVIEW OF SYSTEMS: MANAGER CLIENT: She denies any headache, lightheadedness, or dizziness. CVS: She denies any chest pain or palpitation. RESPIRATORY: She complains of shortness of breath, worse with exertion. GI: She denies any nausea, vomiting, abdominal pain, or diarrhea. Rest of all other systems are reviewed and negative. PHYSICAL EXAMINATION: GENERAL: The patient appears short of breath, in mild respiratory distress. VITAL SIGNS: Blood pressure 154/63, respiratory rate of 24, pulse of 108, she is afebrile with O2 sat of 95% on 2 L. HEENT: Pupils are equal, round, and reactive to light and accommodation. NECK: Supple. No JVD. LUNGS: Diminished breath sounds at left base. Right, clear to auscultation with few expiratory rhonchi. HEART: Irregularly irregular. ABDOMEN: Obese, soft, nontender. Bowel sounds audible. EXTREMITIES: Bilateral pitting edema extending from dorsum of foot to both calves. NEUROLOGIC: Nonfocal. PSYCHIATRIC: Appropriate affect. LABORATORY DATA: WBC 11.6, hematocrit 43.2, platelet of 265. Chemistry, troponin 8.7. BNP 611. Imaging studies and EKG as mentioned in the H and P. ASSESSMENT AND PLAN: This is a 75-year-old female patient with stage IV lung cancer, currently receiving chemotherapy, presented with worsening shortness of breath, lower extremity edema of 2 weeks' duration. PROBLEM LIST: 1. Shortness of breath that seems multifactorial due to new onset congestive heart failure, atrial fibrillation, underlying stage IV cancer with new left pleural effusion. The patient will be admitted to intermediate care unit, will be treated with IV Lasix, will follow BMP and BNP. We will obtain an echocardiogram, we will obtain Cardiology consultation. In regard to underlying lung cancer, chronic obstructive pulmonary disease, atelectasis, and left pleural effusion, we will hold Eliquis for possible thoracocentesis. We will obtain a pulmonary consultation. We will treat the patient with scheduled updraft treatment. Since there is no evidence of acute infection, we will hold off on antibiotics. 2. Atrial fibrillation with rapid ventricular response. The patient will be continued on metoprolol and Cardizem. We will hold Eliquis for possible thoracocentesis. 3. History of 8th and 9th rib fractures. Currently patient is not in pain. We will recommend incentive spirometry, pulmonary toilet and follow clinical course. 4. Deep vein thrombosis prophylaxis. The patient will be placed on compression boots. 5. New-onset congestive heart failure with no prior history of congestive heart failure. The patient follows with Dr. Rogers from [place]. We will obtain cardiology consultation and echocardiogram. Follow BNP and BMP closely. MD JENNIFER St/CHUN / [phone]
--- NOTE | 2021-05-21 17:30 | PC.NURSE ---
pt has a bed assigned, this documentation writer gave report to receiving RN [facility]. Pt made aware. Pt will be transported to unit by medical sociologist
--- NOTE | 2021-05-21 17:50 | MHC.CM.PN ---
CM met with admitted patient, room 444. IMM reviewed and signed 05/21/21@[id number]. No HCP on file. Reviewed HCP, provided education, pt refuses to complete at this time. Pt lives alone, uses no DME and has no services. Pt independent. Pt drives. Recent lung cancer diagnosis with wedge resection of LLL. [place] [facility] Chem is scheduled [id number]. Contact is Gio edmondson ([phone]). Pt may need resp evaluation if remains on Oxygen. Pt may need VNA services at discharge pending hospital course. No referrals placed yet. Pt to arrange transportation home. CM to follow for d/c needs.
[2021-05-21] MEDS: dilTIAZem HCL CD 240 MG CAP.ER.DEG PO (20:32)
[2021-05-21] MEDS: Furosemide 40 MG/4 ML VIAL IVPUSH (20:32)
[2021-05-21] MEDS: polyethylene glycoL 3350 17 GM POWD.PACK PO (20:45)
[2021-05-21] MEDS: Milk of Magnesia 30 ML ORAL.SUSP PO (20:45)
[2021-05-22] VITALS (17 sets, daily range): BP systolic 106–119; BP diastolic 52–74; PULSE 85–120; RESP 16–26; TEMP 36.2–36.6; O2SAT 92–98; BMI 29.9
[2021-05-22] MEDS: 0.9 % Sodium Chloride Flush 3 ML SYRINGE IVFLUSH ×4 (00:20→22:49)
--- NOTE | 2021-05-22 00:30 | PC.NURSE ---
P.SOB,RAPID AFIB I.PT NOTED TO BE SOB AT REST.O2 ON AT 2L,SAT 96%.LUNGS WITH SCATTERED CRACKLES AND EXP WHEEZES.OCC WADE NPC.MONITOR AFIB,HR 110'S-130,BP 119/60.DR TAO UPDATED.ORDER TO GIVE PRN UPDRAFT TREATMENT,LASIX 40MG IV X 1,LOPRESSOR 5MG IV X 1.PT UPDATED,MEDS GIVEN AND UPD GIVEN BY RESPIRATORY. E.BP 111/57,HR 98-112,AFIB POST MEDS,VOIDED 200.DENIES PAIN.STILL K[place]OR.MED WITH MELATONIN 3MG PO FOR SLEEP.
[2021-05-22] MEDS: Furosemide 40 MG/4 ML VIAL IVPUSH ×3 (00:57→18:19)
[2021-05-22] MEDS: Metoprolol Tartrate 5 MG/5 ML VIAL IVPUSH (01:00)
[2021-05-22] MEDS: Melatonin 3 MG TABLET PO ×2 (01:36→23:28)
[2021-05-22] MEDS: Albuterol/Iprat 2.5/0.5MG 3 ML AMPUL.NEB INHALE ×4 (07:33→19:18)
[2021-05-22] MEDS: Levothyroxine Sodium 112 MCG TABLET PO (07:54)
[2021-05-22] MEDS: Metoprolol Succinate ER 50 MG TAB.ER.24H PO (07:55)
[2021-05-22] MEDS: Folic Acid 1 MG TABLET PO (07:55)
[2021-05-22] MEDS: dilTIAZem HCL CD 120 MG CAP.ER.DEG PO (07:56)
[2021-05-22] MEDS: Atorvastatin Calcium 80 MG TABLET 20 MG PO (07:56)
[2021-05-22] MEDS: Amoxicillin/Potassium Clav 875 MG TABLET PO ×2 (09:33→20:04)
[2021-05-22] MEDS: Acetaminophen 325 MG TABLET 650 MG PO (09:33)
[2021-05-22 09:42] LABS: B Type Natriuretic Peptide 719 pg/mL (<100)
[2021-05-22 10:02] LABS: Anion Gap 15 (12-20); Blood Urea Nitrogen 30 mg/dL (9-16); Calcium 8.1 mg/dL (8.4-10.2); Carbon Dioxide 30 mmol/L (22-29); Chloride 103 mmol/L (96-108); Creatinine Clr Calc Pharmacy 50.7; Estimated Glomerular Filt Rate 55; Glucose Random 221 mg/dL (60-115); Potassium 4.7 mmol/L (3.3-5.1); Sodium 143 mmol/L (135-145)
--- NOTE | 2021-05-22 10:48 | P.CDIC_ITS ---
CDI Concurrent Query Service Date: 05/22/21 Documentation Clarification: Please clarify if you are treating a proba ble/suspected/likely or confirmed: Acute respiratory failure, (Treat, not treating) Other, unspecified or undetermined Provider Response: Other Other Diagnosis: No acute hypoxic respiratory failure PLEASE DO NOT DELETE/MODIFY EXISTING CONTENT Additional information is needed in order to code to the highest accuracy and appropriate Severity of Illness (SOI). Please clarify the information noted below in your progress notes and discharge summary. Risk Factors/Clinical Indicators/Treatments Respiratory notes 05/21 - Patient being treated for lung cancer, Dyspnea, SOB. Dr. Christianson wanted patient to be on home oxygen but she refused. RR 24 26 HR 112 placed on 2 liters oxygen. History of smoking, COPD exacerbation, Adenocarcinoma left lung Stage 4. New onset CHF. CDS: Rhea Koehler CCS, CDIS Contact Number: [phone] Please Review the information above and exercise your independent professional judgment in responding to the query. If you concur, pleas document in the PROGRESS NOTES and DISCHARGE SUMMARY. If you do not agree with the query, please document in the query above. THIS QUERY IS PART OF THE PERMANENT MEDICAL RECORD
--- NOTE | 2021-05-22 10:55 | PM.CNPUL ---
History of Present Illness History of Present Illness Consult date: 05/22/21 Chief complaint: Acute congestive heart failure pleural effusion Narrative: This is an inpatient Pulmonary consultation. The patient is a 75-year-old woman with a known history of COPD, congestive heart failure in addition to adenocarcinoma in the left lung. Initially underwent wedge resection. She had recurrent disease with a positive PET scan and then was taken back to the or for lobectomy. Unfortunate she developed V-tach and she could not have the lobectomy. She was referred to Oncology and was going to start chemotherapy. Meantime she was having progressive shortness of breath. Moderate severity. While she was being evaluated for chemo the patient did have a 6 minutes walk test. It appeared that she developed increased tachycardia but her oxygen was stable. She went to see a executive pilot who felt that this was not related to a cardiac etiology. Per the patient. In the meantime she was referred to Pulmonary for new patient evaluation. Unfortunate her symptoms became significantly worse and she could not wait any further and went to the ER. In the ER she was placed on oxygen for evidence of hypoxia in addition to that she had a CT scan of the chest demonstrating moderate sided left-sided effusion as well as atelectasis of the lungs question airspace disease. She was admitted to the hospital in her Eliquis was stopped. She is scheduled for thoracentesis hopefully tomorrow which be 2 days off the Eliquis. In the meantime the patient will be started on antibiotics. She denies any wheezing or chest tightness. Review of Systems Constitutional: Constitutional: Denies night sweats ENT: Denies change in voice, Denies lip swelling, Denies mouth pain, Reports nasal congestion, Reports nasal discharge and Denies tongue swelling Cardiovascular: Cardiovascular: Denies chest pain, Reports dyspnea and Reports dyspnea on exertion Respiratory: Respiratory: Denies chest congestion, Reports cough, Denies hemoptysis, Reports dyspnea and Reports dyspnea on exertion Gastrointestinal: Gastrointestinal: Denies abdominal pain Musculoskeletal: Musculoskeletal: Denies no additional musculoskeletal complaints Neurologic: Denies Neuro-related abnormal movements Psychiatric: Psychiatric: Denies no additional psychiatric complaints Hematologic/Lymphatic: Hematologic/Lymphatic: Denies easy bleeding and Denies lymphadenopathy Allergic/Immunologic: Allergic/Immunologic: Denies lip swelling and Denies tongue swelling [facility] Past Medical History Medical History (Updated 05/22/21 @ 11:00 by Trey Moise MD) Adenocarcinoma of left lung, stage 4 (~01/2021) Adenocarcinoma of left lung, stage 4 Atrial fibrillation (~09/2019) CAD (coronary artery disease) COPD (chronic obstructive pulmonary disease) History of [place] (myocardial infarction) (~2002) History of pleural effusion (~09/2019) Hypertension Hypothyroidism Malignant neoplasm of lower lobe, left bronchus or lung (~01/2021) Osteoporosis Personal history of nicotine dependence Pleural effusion Pneumonia Pulmonary nodules Surgical History Surgical History History of basal cell carcinoma excision (~04/02/98) History of cardioversion (~12/07/19) History of heart artery stent History of lung surgery (~01/22/21) Social History Social History Household Members: None Housing: House Do you presently have visiting nurse or other home services: No Alcohol intake: never Patient Tobacco Use Status: Former Tobacco user Smoked in Last 30 Days: No Use of substances other than those prescribed or required for medical reasons: No Currently Displaying Signs/Symptoms of Drug Intoxication Withdrawal: No Have you been hit, kicked, punched, or otherwise hurt by someone within the past year? If so, by whom?: No Do you feel safe in your current relationship?: No Current Relationship Is there a partner from a previous relationship who is making you feel unsafe now?: No Are you made to feel afraid or neglected: No Advance Directives: No Advance Directives Information Provided: No Do you have thoughts of harming others: None Do you have a plan to hurt others: No Plan Recently lost weight without trying: No Nutrition Risks: No Nutritional Risk Patient : No : No Poor oral hygiene: No service: No Current occupational status: retired Meds Allergies Allergy/AdvReac Type Severity Reaction Status Date / Time codeine [CODEINE] Allergy Severe SEVERE Verified 03/22/21 09:12 HEADACHE latex [LATEX] Allergy Intermediate RASH/HIVES Verified 03/22/21 09:12 Active Medications: Current Medications Generic Name Dose Route Start Last Admin Trade Name Freq PRN Reason Stop Dose Admin Acetaminophen 650 mg 05/21/21 13:53 05/22/21 09:33 Acetaminophen 325 Mg Tablet PO 650 mg Q6H PRN Administration Pain, Mild (Pain Scale 1-3) Albuterol/Ipratropium 3 ml 05/22/21 00:33 Albuterol/Iprat 2.5/0.5mg 3 Ml Ampul.Neb INHALE RQ4H PRN Shortness of Breath/Wheezing Albuterol/Ipratropium 3 ml 05/22/21 12:00 Albuterol/Iprat 2.5/0.5mg 3 Ml Ampul.Neb INHALE RQ4H WHILE AWAKE OSIRIS Amoxicillin/Clavulanate Potassium 875 mg 05/22/21 09:00 05/22/21 09:33 Amoxicillin/Potassium Clav 875 Mg Tablet PO 875 mg Q12H OSIRIS Administration Atorvastatin Calcium 20 mg 05/22/21 09:00 05/22/21 07:56 Atorvastatin Calcium 80 Mg Tablet PO 20 mg DAILY OSIRIS Administration Digoxin 0.25 mg 05/22/21 10:30 Digoxin 0.5 Mg/2 Ml Ampul IVPUSH 05/22/21 16:31 Q6H OSIRIS Diltiazem HCl 120 mg 05/22/21 09:00 05/22/21 07:56 Diltiazem Hcl Cd 120 Mg Cap.Er.Deg PO 120 mg DAILY OSIRIS Administration Protocol Diltiazem HCl 240 mg 05/21/21 21:00 05/21/21 20:32 Diltiazem Hcl Cd 240 Mg Cap.Er.Deg PO 240 mg BEDTIME OSIRIS Administration Protocol Folic Acid 1 mg 05/22/21 09:00 05/22/21 07:55 Folic Acid 1 Mg Tablet PO 1 mg DAILY OSIRIS Administration Furosemide 40 mg 05/21/21 18:00 05/22/21 07:56 Furosemide 40 Mg/4 Ml Vial IVPUSH 40 mg BID@0900,1800 OSIRIS Administration Protocol Levothyroxine Sodium 112 mcg 05/22/21 09:00 05/22/21 07:54 Levothyroxine Sodium 112 Mcg Tablet PO 112 mcg DAILY OSIRIS Administration Melatonin 3 mg 05/21/21 13:53 05/22/21 01:36 Melatonin 3 Mg Tablet PO 3 mg BEDTIME PRN Administration Insomnia Metoprolol Succinate 50 mg 05/22/21 09:00 05/22/21 07:55 Metoprolol Succinate Er 50 Mg Tab.Er.24h PO 50 mg DAILY OSIRIS Administration Protocol Multivitamins/Minerals 1 tab 05/22/21 09:00 05/22/21 07:55 Multivitamin With Minerals Tablet PO 1 tab DAILY OSIRIS Administration Ondansetron HCl 4 mg 05/21/21 13:53 Ondansetron Hcl 4 Mg/2 Ml Vial IVPUSH Q8H PRN Nausea and Vomiting Pharmacy Consult 1 each 05/21/21 10:14 Consult Rx Perform Med Rec MISCELLANE ONCE PRN Consult order Polyethylene Glycol 17 gm 05/21/21 20:45 05/22/21 07:57 Polyethylene Glycol 3350 17 Gm Powd.Pack PO Not Given DAILY [facility] Sodium Chloride 3 ml 05/21/21 16:00 05/22/21 07:57 0.9 % Sodium Chloride Flush 3 Ml Syringe IVFLUSH 3 ml QSHIFT [facility] Administration Home Medications Medication Instructions Recorded Confirmed Last Taken Type apixaban 5 mg tablet (Eliquis) 5 mg PO BID 11/30/20 05/21/21 05/21/21 History aspirin 81 mg tablet,delayed 81 mg PO DAILY 11/30/20 05/21/21 05/21/21 History release furosemide 40 mg tablet 40 mg PO DAILY 11/30/20 05/21/21 05/21/21 History rosuvastatin 20 mg tablet 20 mg PO DAILY 11/30/20 05/21/21 05/21/21 History diltiazem HCl 240 mg 240 mg PO BEDTIME 02/08/21 05/21/21 05/20/21 History capsule,extended release 24 hr, controlled levothyroxine 112 mcg tablet 112 mcg PO DAILY 02/08/21 05/21/21 05/21/21 History [id number] acid 0.4 1 tab PO DAILY 02/08/21 05/21/21 05/21/21 History mg-lycopene 300 mcg-lutein 250 mcg tablet (Centrum Silver) albuterol sulfate 90 mcg/actuation 2 puff PO Q4H 05/21/21 05/21/21 Unknown History breath activated powder inhaler (ProAir RespiClick) diltiazem HCl 120 mg 120 mg PO DAILY 05/21/21 05/21/21 05/21/21 History capsule,extended release 24 hr, controlled (DILT-XR) metoprolol succinate 50 mg 1 tab PO DAILY 05/21/21 05/21/21 05/21/21 History tablet,extended release 24 hr Physical Exam Vital Signs: Vital Signs: Last Vital Signs Temp 98 F 05/22/21 10:49 Pulse 106 H 05/22/21 10:49 Resp 22 H 05/22/21 10:49 BP 106/70 05/22/21 10:49 Pulse Ox 94 05/22/21 10:49 Oxygen Flow Rate 1 05/21/21 09:49 Body Mass Index 29.9 Const: General: alert Neck: Neck: Yes normal visual inspection, Yes full ROM and Yes no lymphadenopathy Chest: Chest palpation & inspection: normal inspection of the chest Resp: Auscultation: diminished lung sounds Cardio: Rate: regular rate Rhythm: regular rhythm Heart sounds: S1 normal heart sound present and S2 normal heart sound present GI: Palpation (GI): Soft to palpation and nontender Auscultation: normal bowel sounds Skin: General skin exam: rashes and/or lesions noted Results Laboratory Findings CBC and BMP: 05/21/21 10:53 05/22/21 08:53 Abnormal lab findings: Abnormal Labs 05/21/21 05/21/21 05/21/21 10:53 10:53 10:53 WBC 11.6 H RDW 16.6 H Immature Gran % (Auto) 0.6 H Neut % (Auto) 88.3 H Lymph % (Auto) 9.9 L [place] % (Auto) 0.5 L Abs Immat Gran (auto) 0.07 H Absolute Neuts (auto) 10.2 H Carbon Dioxide BUN 33 H D Random Glucose 119 H Calcium AST 32 H D ALT 36 H B-Natriuretic Peptide 611 H 05/22/21 05/22/21 08:53 08:53 WBC RDW Immature Gran % (Auto) Neut % (Auto) Lymph % (Auto) [place] % (Auto) Abs Immat Gran (auto) Absolute Neuts (auto) Carbon Dioxide 30 H BUN 30 H Random Glucose 221 H D Calcium 8.1 L D AST ALT B-Natriuretic Peptide 719 H Assessment and Plan (1) Adenocarcinoma of left lung, stage 4: Status: Acute (2) Malignant neoplasm of lower lobe, left bronchus or lung: Status: Acute (3) Pneumonia: Qualifiers: Pneumonia type: due to unspecified organism Laterality: left Lung location: unspecified part of lung Qualified Code(s): J18.9 - Pneumonia, unspecified organism Status: Acute (4) COPD (chronic obstructive pulmonary disease): Qualifiers: COPD type: chronic bronchitis Chronic bronchitis type: simple Qualified Code(s): J41.0 - Simple chronic bronchitis Status: Acute (5) Pleural effusion: Status: Acute Start antibiotics to cover for postobstructive pneumonia CPT with flutter valve Continue nebulized therapy Start antibiotic regimen to cover polymicrobial organisms in addition to anaerobic organisms Thoracentesis hopefully tomorrow after being off the anticoagulation for couple days. Please send the fluid for cytology in addition to culture and lytes criteria Consider bronchoscopy if her lung does not expand after thoracentesis. Procedures Date of Service Date of Service: 05/22/21
[2021-05-22] MEDS: Digoxin 0.5 MG/2 ML AMPUL 0.25 MG IVPUSH ×2 (11:04→16:07)
--- NOTE | 2021-05-22 11:06 | MHC.CM.PN ---
Per ROUNDS discussion, Patient is not yet medically cleared for dc (needs thorocentesis). Home is the goal for dc and CM will follow for possible need to adjust the dc plan.
--- NOTE | 2021-05-22 11:23 | P.CONCA_ITS ---
History of Present Illness History of Present Illness Date of Service: 05/22/21 Chief complaint: Acute congestive heart failure pleural effusion Narrative: This is a cardiology consultation regarding congestive heart failure. There is a history of atrial fibrillation since last year. Remote history of coronary artery disease with possibly stenting in 2002 but unknown details. Current admission is for increasing shortness of breath for the last few days accompanied by cough. No angina type symptoms. She has also been having bilateral leg swelling. This led to hospitalization and venous ER for evaluation any congestive heart failure. Based on home med reconciliation, she is on diltiazem ER 360 mg in divided doses daily and also on metoprolol. She is on Eliquis for anticoagulation. In spite of this her heart rate is on the higher side. Review of Systems Review of Systems: Yes all other systems are reviewed and are negative Cardiovascular: Cardiovascular: Reports as per HPI, Reports no additional cardiovascular complaints, Denies acrocyanosis, Denies cool extremities, Denies painful fingertips, Denies chest pain, Denies chest pain at rest, Denies diaphoresis, Denies syncope, Denies irregular heart rhythm, Denies claudication, Denies leg edema, Denies lightheadedness, Denies palpitations and Reports dyspnea Respiratory: Respiratory: Reports cough and Reports dyspnea Neurologic: Denies syncope Endocrine: Endocrine: Denies palpitations [facility] Past Medical History Medical History (Updated 05/22/21 @ 11:28 by Spike Whiting MD) Adenocarcinoma of left lung, stage 4 (~01/2021) Adenocarcinoma of left lung, stage 4 Atrial fibrillation (~09/2019) CAD (coronary artery disease) COPD (chronic obstructive pulmonary disease) History of SC (myocardial infarction) (~2002) History of pleural effusion (~09/2019) Hypertension Hypothyroidism Malignant neoplasm of lower lobe, left bronchus or lung (~01/2021) Osteoporosis Personal history of nicotine dependence Pleural effusion Pneumonia Pulmonary nodules Family History Family History (Updated 05/22/21 @ 11:26 by Spike Whiting MD) Mother CAD (coronary artery disease) Surgical History Surgical History History of basal cell carcinoma excision (~04/02/98) History of cardioversion (~12/07/19) History of heart artery stent History of lung surgery (~01/22/21) Social History Social History Household Members: None Housing: House Do you presently have visiting nurse or other home services: No Alcohol intake: never Patient Tobacco Use Status: Former Tobacco user Smoked in Last 30 Days: No Use of substances other than those prescribed or required for medical reasons: No Currently Displaying Signs/Symptoms of Drug Intoxication Withdrawal: No Have you been hit, kicked, punched, or otherwise hurt by someone within the past year? If so, by whom?: No Do you feel safe in your current relationship?: No Current Relationship Is there a partner from a previous relationship who is making you feel unsafe now?: No Are you made to feel afraid or neglected: No Advance Directives: No Advance Directives Information Provided: No Do you have thoughts of harming others: None Do you have a plan to hurt others: No Plan Recently lost weight without trying: No Nutrition Risks: No Nutritional Risk Patient : No : No Poor oral hygiene: No service: No Current occupational status: retired [employer] Allergies Allergy/AdvReac Type Severity Reaction Status Date / Time codeine [CODEINE] Allergy Severe SEVERE Verified 03/22/21 09:12 HEADACHE latex [LATEX] Allergy Intermediate RASH/HIVES Verified 03/22/21 09:12 Active Medications: Current Medications Generic Name Dose Route Start Last Admin Trade Name Freq PRN Reason Stop Dose Admin Acetaminophen 650 mg 05/21/21 13:53 05/22/21 09:33 Acetaminophen 325 Mg Tablet PO 650 mg Q6H PRN Administration Pain, Mild (Pain Scale 1-3) Albuterol/Ipratropium 3 ml 05/22/21 00:33 Albuterol/Iprat 2.5/0.5mg 3 Ml Ampul.Neb INHALE RQ4H PRN Shortness of Breath/Wheezing Albuterol/Ipratropium 3 ml 05/22/21 12:00 Albuterol/Iprat 2.5/0.5mg 3 Ml Ampul.Neb INHALE RQ4H WHILE AWAKE [facility] Amoxicillin/Clavulanate Potassium 875 mg 05/22/21 09:00 05/22/21 09:33 Amoxicillin/Potassium Clav 875 Mg Tablet PO 875 mg Q12H [facility] Administration Atorvastatin Calcium 20 mg 05/22/21 09:00 05/22/21 07:56 Atorvastatin Calcium 80 Mg Tablet PO 20 mg DAILY [facility] Administration Digoxin 0.25 mg 05/22/21 10:30 05/22/21 11:04 Digoxin 0.5 Mg/2 Ml Ampul IVPUSH 05/22/21 16:31 0.25 mg Q6H [facility] Administration Diltiazem HCl 120 mg 05/22/21 09:00 05/22/21 07:56 Diltiazem Hcl Cd 120 Mg Cap.Er.Deg PO 120 mg DAILY [facility] Administration Protocol Diltiazem HCl 240 mg 05/21/21 21:00 05/21/21 20:32 Diltiazem Hcl Cd 240 Mg Cap.Er.Deg PO 240 mg BEDTIME [facility] Administration Protocol Folic Acid 1 mg 05/22/21 09:00 05/22/21 07:55 Folic Acid 1 Mg Tablet PO 1 mg DAILY [facility] Administration Furosemide 40 mg 05/21/21 18:00 05/22/21 07:56 Furosemide 40 Mg/4 Ml Vial IVPUSH 40 mg BID@0900,1800 [facility] Administration Protocol Levothyroxine Sodium 112 mcg 05/22/21 09:00 05/22/21 07:54 Levothyroxine Sodium 112 Mcg Tablet PO 112 mcg DAILY [facility] Administration Melatonin 3 mg 05/21/21 13:53 05/22/21 01:36 Melatonin 3 Mg Tablet PO 3 mg BEDTIME PRN Administration Insomnia Metoprolol Succinate 50 mg 05/22/21 09:00 05/22/21 07:55 Metoprolol Succinate Er 50 Mg Tab.Er.24h PO 50 mg DAILY [facility] Administration Protocol Multivitamins/Minerals 1 tab 05/22/21 09:00 05/22/21 07:55 Multivitamin With Minerals Tablet PO 1 tab DAILY [facility] Administration Ondansetron HCl 4 mg 05/21/21 13:53 Ondansetron Hcl 4 Mg/2 Ml Vial IVPUSH Q8H PRN Nausea and Vomiting Pharmacy Consult 1 each 05/21/21 10:14 Consult Rx Perform Med Rec MISCELLANE ONCE PRN Consult order Polyethylene Glycol 17 gm 05/21/21 20:45 05/22/21 07:57 Polyethylene Glycol 3350 17 Gm Powd.Pack PO Not Given DAILY [facility] Sodium Chloride 3 ml 05/21/21 16:00 05/22/21 07:57 0.9 % Sodium Chloride Flush 3 Ml Syringe IVFLUSH 3 ml QSHIFT [facility] Administration Home Medications Medication Instructions Recorded Confirmed Last Taken Type apixaban 5 mg tablet (Eliquis) 5 mg PO BID 11/30/20 05/21/21 05/21/21 History aspirin 81 mg tablet,delayed 81 mg PO DAILY 11/30/20 05/21/21 05/21/21 History release furosemide 40 mg tablet 40 mg PO DAILY 11/30/20 05/21/21 05/21/21 History rosuvastatin 20 mg tablet 20 mg PO DAILY 11/30/20 05/21/21 05/21/21 History diltiazem HCl 240 mg 240 mg PO BEDTIME 02/08/21 05/21/21 05/20/21 History capsule,extended release 24 hr, controlled levothyroxine 112 mcg tablet 112 mcg PO DAILY 02/08/21 05/21/21 05/21/21 History [id number] acid 0.4 1 tab PO DAILY 02/08/21 05/21/21 05/21/21 History mg-lycopene 300 mcg-lutein 250 mcg tablet (Centrum Silver) albuterol sulfate 90 mcg/actuation 2 puff PO Q4H 05/21/21 05/21/21 Unknown History breath activated powder inhaler (ProAir RespiClick) diltiazem HCl 120 mg 120 mg PO DAILY 05/21/21 05/21/21 05/21/21 History capsule,extended release 24 hr, controlled (DILT-XR) metoprolol succinate 50 mg 1 tab PO DAILY 05/21/21 05/21/21 05/21/21 History tablet,extended release 24 hr Physical Exam Vital Signs: Vital Signs: Last Vital Signs Temp 98 F 05/22/21 10:49 Pulse 106 H 05/22/21 11:04 Resp 22 H 05/22/21 10:49 BP 106/70 05/22/21 10:49 Pulse Ox 94 05/22/21 10:49 Oxygen Flow Rate 1 05/21/21 09:49 Body Mass Index 29.9 Const: Other: short of breath General: cooperative HENMT: Other: Unremarkable Neck: Neck: Yes normal visual inspection Chest: Chest palpation & inspection: normal inspection of the chest Resp: Auscultation: crackles, wheezes and diminished lung sounds Cardio: Jugular venous distension: no JVD Palpation: normal PMI Heart sounds: S1 normal heart sound present, S2 normal heart sound present, no gallops, no murmurs and no rubs GI: Palpation (GI): Soft to palpation Back/Spine/Pelvis: Other: unremarkable Skin: General skin exam: no rashes or lesions noted Neuro: Cranial nerves: Yes Other cranial nerve findings present Extrem: General: Yes no clubbing, cyanosis or edema Psych: Mental Status: other Results Labs and Meds Result diagrams: 05/21/21 10:53 05/22/21 08:53 Lab results: Laboratory Results - last 24 hr 05/21/21 05/21/21 05/21/21 10:53 10:53 13:05 Immature Gran % (Auto) 0.6 H Neut % (Auto) 88.3 H Lymph % (Auto) 9.9 L [place] % (Auto) 0.5 L Eos % (Auto) 0.6 Baso % (Auto) 0.1 Lymph # (Auto) 1.2 [place] # (Auto) 0.1 Eos # (Auto) 0.1 Baso # (Auto) 0.0 Abs Immat Gran (auto) 0.07 H Absolute Neuts (auto) 10.2 H Absolute Nucleated RBC 0.000 Nucleated RBC % (auto) 0.0 Smear Tech's Comments VERIFIED Sodium Potassium Chloride Carbon Dioxide Anion Gap BUN Creatinine Estim Creat Clear Calc Estimated GFR Random Glucose Calcium Magnesium B-Natriuretic Peptide 611 H Urine Color YELLOW Urine Appearance CLEAR Urine pH 6.0 Ur Specific Holly 1.010 Urine Protein TRACE Urine Glucose (UA) NEG Urine Ketones NEG Urine Blood TRACE Urine Nitrite NEG Ur Leukocyte Esterase NEG Urine RBC 0-2 Urine WBC 0 Ur Squamous Epith Cells TRACE Urine Bacteria NONE 05/21/21 05/22/21 05/22/21 13:26 08:53 08:53 Immature Gran % (Auto) Neut % (Auto) Lymph % (Auto) [place] % (Auto) Eos % (Auto) Baso % (Auto) Lymph # (Auto) [place] # (Auto) Eos # (Auto) Baso # (Auto) Abs Immat Gran (auto) Absolute Neuts (auto) Absolute Nucleated RBC Nucleated RBC % (auto) Smear Tech's Comments Sodium 143 Potassium 4.7 Chloride 103 Carbon Dioxide 30 H Anion Gap 15 BUN 30 H Creatinine 0.98 Estim Creat Clear Calc 50.7 Estimated GFR 55 Random Glucose 221 H D Calcium 8.1 L D Magnesium 2.2 B-Natriuretic Peptide 719 H Urine Color Urine Appearance Urine pH Ur Specific Holly Urine Protein Urine Glucose (UA) Urine Ketones Urine Blood Urine Nitrite Ur Leukocyte Esterase Urine RBC Urine WBC Ur Squamous Epith Cells Urine Bacteria ECG Interpretation: EKG with atrial fibrillation at a rate of 112/Min with occasional PVCs or aberrant conduction. Imaging Radiologist's impression: Impressions Chest CTA 05/21/21 11:52 IMPRESSION: No evidence of pulmonary embolism. New large left pleural effusion and compressive atelectasis of the left upper and lower lobes. Interval increase in pulmonary nodules. Left anterior eighth and ninth rib fractures, question mild T12 compression fracture and T11 vertebral body kyphoplasty new in the interval from October 2020 VTE: negative Assessment and Plan (1) Acute diastolic (congestive) heart failure: Status: Acute (2) Atrial fibrillation with rapid ventricular response: Status: Acute Pertinent data reviewed. High sensitive troponin 8.7. Cardiac BNP 719. CT chest shows no pulmonary embolism. New large left pleural effusion and compressive atelectasis of left upper and lower lobes. Her shortness of breath is most likely from the pulmonary issues but she could have some diastolic heart failure related to atrial fibrillation with rapid rate. Atrial fibrillation rate is again increased mainly due to her pulmonary issues. May add digoxin to slow down a bit. Empiric diuretics. Otherwise, consider thoracentesis. Will follow up with you. Procedures Date of Service Date of Service: 05/22/21
--- NOTE | 2021-05-22 12:28 | PC.NURSE ---
Patient's thoracentesis planned for tomorrow-(Eliquis on hold for the procedure). Dr. Brumfield at bedside this am, oxygen increased from 2L to 3L, patient does not tolerate activity, experiencing increased SOB with slight movement. Breathing treatment changed to every 4 hours, Augmentin PO added for resp. infection.
--- NOTE | 2021-05-22 15:36 | P.PNIM_ITS ---
Subjective Subjective Date of Service: 05/22/21 Interval History: Complaining of short of breath, cough with clear phlegm, no chest pain, no fever chills no other acute issues overnight oxygenation remains stable on 2 L Review of Systems General no headache, no dizziness, no fever chills. CVS no chest pain, no palpitation. Respiratory shortness of breath and cough Gastrointestinal no nausea, no vomiting, no abdominal pain Physical Exam Vital Signs: Vital Signs: Last Vital Signs Temp 97.8 F 05/22/21 15:10 Pulse 90 05/22/21 15:10 Resp 18 05/22/21 15:10 BP 110/70 05/22/21 15:10 Pulse Ox 92 05/22/21 15:10 Oxygen Flow Rate 1 05/21/21 09:49 Body Mass Index 29.9 General in mild to moderate acute respiratory distress. Neck no JVD. CVS irregular rate rhythm, Respiratory lungs diminished breath sound at left side, bilateral expiratory rhonchi , no use of accessory muscles Gastrointestinal abdomen soft, nontender, bowel sounds audible Extremities bilateral pitting edema. Neuro nonfocal Skin no rash Objective Data Active Medications Acetaminophen (Acetaminophen 325 Mg Tablet) 650 mg PO Q6H PRN PRN Reason: Pain, Mild (Pain Scale 1-3) Last Admin: 05/22/21 09:33 Dose: 650 mg Documented by: KATELYN Albuterol/Ipratropium (Albuterol/Iprat 2.5/0.5mg 3 Ml Ampul.Neb) 3 ml INHALE RQ4H PRN PRN Reason: Shortness of Breath/Wheezing Albuterol/Ipratropium (Albuterol/Iprat 2.5/0.5mg 3 Ml Ampul.Neb) 3 ml INHALE RQ4H WHILE AWAKE [facility] Last Admin: 05/22/21 12:39 Dose: 3 ml Documented by: JANI Amoxicillin/Clavulanate Potassium (Amoxicillin/Potassium Clav 875 Mg Tablet) 875 mg PO Q12H [facility] Last Admin: 05/22/21 09:33 Dose: 875 mg Documented by: KATELYN Atorvastatin Calcium (Atorvastatin Calcium 80 Mg Tablet) 20 mg PO DAILY [facility] Last Admin: 05/22/21 07:56 Dose: 20 mg Documented by: KATELYN Digoxin (Digoxin 0.5 Mg/2 Ml Ampul) 0.25 mg IVPUSH Q6H [facility] Stop: 05/22/21 16:31 Last Admin: 05/22/21 11:04 Dose: 0.25 mg Documented by: KATELYN Diltiazem HCl (Diltiazem Hcl Cd 120 Mg Cap.Er.Deg) 120 mg PO DAILY [facility]; Protocol Last Admin: 05/22/21 07:56 Dose: 120 mg Documented by: KATELYN Diltiazem HCl (Diltiazem Hcl Cd 240 Mg Cap.Er.Deg) 240 mg PO BEDTIME [facility]; Protocol Last Admin: 05/21/21 20:32 Dose: 240 mg Documented by: MARYLIN Folic Acid (Folic Acid 1 Mg Tablet) 1 mg PO DAILY [facility] Last Admin: 05/22/21 07:55 Dose: 1 mg Documented by: KATELYN Furosemide (Furosemide 40 Mg/4 Ml Vial) 40 mg IVPUSH BID@0900,1800 [facility]; Protocol Last Admin: 05/22/21 07:56 Dose: 40 mg Documented by: KATELYN Levothyroxine Sodium (Levothyroxine Sodium 112 Mcg Tablet) 112 mcg PO DAILY [facility] Last Admin: 05/22/21 07:54 Dose: 112 mcg Documented by: KATELYN Melatonin (Melatonin 3 Mg Tablet) 3 mg PO BEDTIME PRN PRN Reason: Insomnia Last Admin: 05/22/21 01:36 Dose: 3 mg Documented by: LYNDA Metoprolol Succinate (Metoprolol Succinate Er 50 Mg Tab.Er.24h) 50 mg PO DAILY [facility]; Protocol Last Admin: 05/22/21 07:55 Dose: 50 mg Documented by: KATELYN Multivitamins/Minerals (Multivitamin With Minerals Tablet) 1 tab PO DAILY [facility] Last Admin: 05/22/21 07:55 Dose: 1 tab Documented by: KATELYN Ondansetron HCl (Ondansetron Hcl 4 Mg/2 Ml Vial) 4 mg IVPUSH Q8H PRN PRN Reason: Nausea and Vomiting Pharmacy Consult (Consult Rx Perform Med Rec) 1 each MISCELLANE ONCE PRN PRN Reason: Consult order Polyethylene Glycol (Polyethylene Glycol 3350 17 Gm Powd.Pack) 17 gm PO DAILY [facility] Last Admin: 05/22/21 07:57 Dose: Not Given Documented by: KATELYN Non-Admin Reason: Patient Refused Sodium Chloride (0.9 % Sodium Chloride Flush 3 Ml Syringe) 3 ml IVFLUSH QSHIFT [facility] Last Admin: 05/22/21 07:57 Dose: 3 ml Documented by: KATELYN Labs CBC & Chem 7: 05/21/21 10:53 05/22/21 08:53 Labs: Laboratory Results - last 24 hr 05/22/21 05/22/21 08:53 08:53 Anion Gap 15 Estim Creat Clear Calc 50.7 Estimated GFR 55 Random Glucose 221 H D Calcium 8.1 L D B-Natriuretic Peptide 719 H Assessment and Plan (1) Atrial fibrillation with rapid ventricular response: Status: Acute (2) Acute diastolic (congestive) heart failure: Status: Acute (3) Pleural effusion: Status: Acute (4) COPD (chronic obstructive pulmonary disease): Status: Acute (5) Pneumonia: Status: Acute (6) Adenocarcinoma of left lung, stage 4: Status: Acute Assessment and Plan: 75-year-old female patient with stage IV lung cancer, currently receiving chemotherapy, presented with worsening shortness of breath, lower extremity edema of 2 weeks' duration. 1. Acute respiratory distress that seems multifactorial due to new onset congestive heart failure, atrial fibrillation, underlying stage IV cancer with new left pleural effusion and atelectasis No acute hypoxic respiratory failure, oxygenation remains stable above 90 Will continue IV Lasix patient declined Gonzalez catheter, I's and O's not maintained properly since patient incontinent, follow BMP and BNP.? Follow echocardiogram Will add chest PT, change updraft q.4 hours case discussed with Dr. Moise will add antibiotics for postobstructive pneumonia scheduled thoracocentesis tomorrow after holding Eliquis for 2 days, plan is for bronchoscopy if lungs do not expand after thoracocentesis Continue close clinical monitoring 2. Atrial fibrillation with rapid ventricular response.? continued on metoprolol and Cardizem, hold Eliquis for thoracocentesis., case discussed with Dr. Whiting he recommend digoxin for better heart rate control 3. History of 8th and 9th rib fractures.? Currently patient is not in pain.? Encourage spirometry, pulmonary toilet and follow clinical course. 4. Deep vein thrombosis prophylaxis.? on compression boots. 5. New-onset acute diastolic congestive heart failure noted to have worsening BNP continue Lasix, follow BMP and echocardiogram Quality Stroke Does the patient have a stroke diagnosis?: No VTE Prior VTE?: No VTE Risk Level:: Medical - moderate - high VTE Device Contraindication: N/A - Device Ordered VTE Drug Contraindication: Treatment Not Indicated
[2021-05-22 16:28] LABS: Lactate Dehydrogenase 318 U/L (122-220); Total Protein 6.2 g/dL (6.5-8.0)
[2021-05-22] MEDS: dilTIAZem HCL CD 240 MG CAP.ER.DEG PO (20:04)
[2021-05-22 20:35] LABS: Anion Gap 13 (12-20); Blood Urea Nitrogen 34 mg/dL (9-16); Calcium 8.3 mg/dL (8.4-10.2); Carbon Dioxide 30 mmol/L (22-29); Chloride 103 mmol/L (96-108); Creatinine Clr Calc Pharmacy 47.8; Estimated Glomerular Filt Rate 51; Glucose Random 132 mg/dL (60-115); Magnesium 2.6 mg/dL (1.6-2.6); Potassium 5.1 mmol/L (3.3-5.1); Sodium 141 mmol/L (135-145)
[2021-05-23] VITALS (15 sets, daily range): BP systolic 105–135; BP diastolic 52–66; PULSE 65–135; RESP 18–26; TEMP 36.2–37.1; O2SAT 91–99
--- NOTE | 2021-05-23 03:40 | PC.NURSE ---
1999; Run of Vtach for 14 seconds noted on tele. Pt assessed, denied chest pain or palpitations. MD notified, stat BMP, WNL, no further episodes noted. will continue to monitor.
[2021-05-23] MEDS: 0.9 % Sodium Chloride Flush 3 ML SYRINGE IVFLUSH ×2 (06:43→15:29)
[2021-05-23] MEDS: Levothyroxine Sodium 112 MCG TABLET PO (06:43)
[2021-05-23] MEDS: Furosemide 40 MG/4 ML VIAL IVPUSH ×2 (08:56→19:03)
[2021-05-23] MEDS: Digoxin 0.5 MG/2 ML AMPUL 0.25 MG IVPUSH ×2 (08:57→15:28)
[2021-05-23] MEDS: Amoxicillin/Potassium Clav 875 MG TABLET PO ×2 (08:58→19:55)
[2021-05-23] MEDS: Folic Acid 1 MG TABLET PO (08:58)
[2021-05-23] MEDS: Metoprolol Succinate ER 50 MG TAB.ER.24H PO (08:58)
[2021-05-23] MEDS: Atorvastatin Calcium 80 MG TABLET 20 MG PO (08:58)
[2021-05-23] MEDS: dilTIAZem HCL CD 120 MG CAP.ER.DEG PO (08:59)
[2021-05-23] MEDS: Albuterol/Iprat 2.5/0.5MG 3 ML AMPUL.NEB INHALE ×4 (09:25→20:34)
--- NOTE | 2021-05-23 09:34 | P.PNPL_ITS ---
Subjective Subjective Date of Service: 05/23/21 Interval history: The patient was seen on exam. Her AFib is little bit uncontrolled. She still having shortness of breath. She is using the oxygen. She is planned to have a thoracentesis today. We still do not have the time. Objective Data Labs CBC & Chem 7: 05/21/21 10:53 05/22/21 20:03 Labs: Laboratory Results - last 24 hr 05/22/21 05/22/21 05/22/21 08:53 08:53 16:06 Sodium 143 Potassium 4.7 Chloride 103 Carbon Dioxide 30 H Anion Gap 15 BUN 30 H Creatinine 0.98 Estim Creat Clear Calc 50.7 Estimated GFR 55 Random Glucose 221 H D Calcium 8.1 L D Magnesium Lactate Dehydrogenase 318 H B-Natriuretic Peptide 719 H Total Protein 6.2 L 05/22/21 20:03 Sodium 141 Potassium 5.1 Chloride 103 Carbon Dioxide 30 H Anion Gap 13 BUN 34 H Creatinine 1.04 Estim Creat Clear Calc 47.8 Estimated GFR 51 Random Glucose 132 H D Calcium 8.3 L Magnesium 2.6 Lactate Dehydrogenase B-Natriuretic Peptide Total Protein Review of Systems Constitutional: Denies night sweats Denies change in voice, Denies lip swelling, Denies mouth pain, Reports nasal co ngestion, Reports nasal discharge and Denies tongue swelling Cardiovascular: Denies chest pain, Reports dyspnea and Reports dyspnea on exertion Respiratory: Denies chest congestion, Reports cough, Denies hemoptysis, Reports dyspnea and Reports dyspnea on exertion Gastrointestinal: Denies abdominal pain Musculoskeletal: Denies no additional musculoskeletal complaints Denies Neuro-related abnormal movements Psychiatric: Denies no additional psychiatric complaints Hematologic/Lymphatic: Denies easy bleeding and Denies lymphadenopathy Allergic/Immunologic: Denies lip swelling and Denies tongue swelling Physical Exam Vital Signs: Vital Signs: Last Vital Signs Temp 97.6 F 05/23/21 07:00 Pulse 91 05/23/21 09:27 Resp 26 H 05/23/21 07:00 BP 116/66 05/23/21 08:59 Pulse Ox 98 05/23/21 07:00 Oxygen Flow Rate 1 05/21/21 09:49 Body Mass Index 30.0 Const: General: alert Neck: Neck: Yes normal visual inspection, Yes full ROM and Yes no lymphadenopathy Chest: Chest palpation & inspection: normal inspection of the chest Resp: Auscultation: diminished lung sounds Cardio: Rate: tachycardic Rhythm: abnormal rhythm Heart sounds: S1 normal heart sound present and S2 normal heart sound present GI: Palpation (GI): Soft to palpation and nontender Auscultation: normal bowel sounds Procedures Date of Service Date of Service: 05/23/21 Assessment and Plan Assessment and plan (1) Pleural effusion: Status: Acute (2) COPD (chronic obstructive pulmonary disease): Status: Acute (3) Malignant neoplasm of lower lobe, left bronchus or lung: Problem details: (LLL Adenocarcinoma - Stage IV, level 9 & 11 LNs positive + Brain Met - dx 01/2021) Status: Acute (4) Adenocarcinoma of left lung, stage 4: Problem details: (LLL Adenocarcinoma - Stage IV, level 9 & 11 LNs positive + Brain Met - dx 01/2021) Status: Acute Assessment and Plan: Continue oxygen supplementation to maintain a pulse ox above 90% Plan for thoracentesis today and repeat chest x-ray Consider bronchoscopy tomorrow if her lung is not expanding. Continue antibiotic coverage Rate control Time Spent With Patient Time: Total time spent is greater than 50% in coordination of care (as documented) at patient's floor/unit and/or counseling patient: Time with patient: 15 - 24 minutes Progress Note: Quality Stroke Does the patient have a stroke diagnosis?: No
[2021-05-23 09:41] LABS: Anion Gap 14 (12-20); Blood Urea Nitrogen 26 mg/dL (9-16); Calcium 8.3 mg/dL (8.4-10.2); Carbon Dioxide 30 mmol/L (22-29); Chloride 104 mmol/L (96-108); Creatinine Clr Calc Pharmacy 66.4; Estimated Glomerular Filt Rate > 60; Glucose Random 124 mg/dL (60-115); Lactate Dehydrogenase 324 U/L (122-220); Sodium 144 mmol/L (135-145)
[2021-05-23 10:01] LABS: INTERNATIONAL NORM RATIO 1.1 (0.9-1.1); Prothrombin Time 12.1 SEC (9.9-13.0)
--- NOTE | 2021-05-23 10:45 | P.PNCA_ITS ---
Subjective Subjective Date of Service: 05/23/21 Interval history: Still short of breath. Awaiting thoracentesis. Review of Systems Review of Systems Yes all other systems are reviewed and are negative Cardiovascular: Reports as per HPI, Reports no additional cardiovascular complaints, Denies acrocyanosis, Denies cool extremities, Denies painful fingertips, Denies chest pain, Denies chest pain at rest, Denies diaphoresis, Denies syncope, Denies irregular heart rhythm, Denies claudication, Denies leg edema, Denies lightheadedness, Denies palpitations and Reports dyspnea Respiratory: Reports cough and Reports dyspnea Denies syncope Endocrine: Denies palpitations Physical Exam Vital Signs: Last Vital Signs Temp 97.6 F 05/23/21 07:00 Pulse 91 05/23/21 09:27 Resp 26 H 05/23/21 07:00 BP 116/66 05/23/21 08:59 Pulse Ox 98 05/23/21 07:00 Oxygen Flow Rate 1 05/21/21 09:49 Body Mass Index 30.0 Const Other: short of breath General: cooperative HENNC Other: Unremarkable Neck Neck: Yes normal visual inspection Chest Chest palpation & inspection: normal inspection of the chest Resp Auscultation: crackles, wheezes and diminished lung sounds Cardio Jugular venous distension: no JVD Palpation: normal PMI Heart sounds: S1 normal heart sound present, S2 normal heart sound present, no gallops, no murmurs and no rubs GI Palpation (GI): Soft to palpation Back/Spine/Pelvis Other: unremarkable Skin General skin exam: no rashes or lesions noted Neuro Cranial nerves: Yes Other cranial nerve findings present Extrem General: Yes no clubbing, cyanosis or edema Psych Mental Status: other Results Labs and Meds Result diagrams: 05/21/21 10:53 05/23/21 09:03 Lab results: Laboratory Results - last 24 hr 05/22/21 05/22/21 05/23/21 16:06 20:03 09:03 PT INR Sodium 141 144 Potassium 5.1 4.0 D Chloride 103 104 Carbon Dioxide 30 H 30 H Anion Gap 13 14 BUN 34 H 26 H Creatinine 1.04 0.75 Estim Creat Clear Calc 47.8 66.4 Estimated GFR 51 > 60 Random Glucose 132 H D 124 H Calcium 8.3 L 8.3 L Magnesium 2.6 Lactate Dehydrogenase 318 H 324 H Total Protein 6.2 L 05/23/21 09:44 PT 12.1 INR 1.1 Sodium Potassium Chloride Carbon Dioxide Anion Gap BUN Creatinine Estim Creat Clear Calc Estimated GFR Random Glucose Calcium Magnesium Lactate Dehydrogenase Total Protein Progress Note: A&P Assessment and plan (1) Acute diastolic (congestive) heart failure: Status: Acute (2) Atrial fibrillation with rapid ventricular response: Status: Acute Assessment and Plan: Pertinent data reviewed. High sensitive troponin 8.7. Cardiac BNP 719. CT chest shows no pulmonary embolism. New large left pleural effusion and compressive atelectasis of left upper and lower lobes. Her shortness of breath is most likely from the pulmonary issues but she could have some diastolic heart failure related to atrial fibrillation with rapid rate. Atrial fibrillation ra te is again increased mainly due to her pulmonary issues. Digoxin load followed by maintenance. Empiric diuretics. Thoracentesis pending. Will follow-up. Fall Risk Details Current Medications: Current Medications Generic Name Dose Route Start Last Admin Trade Name Freq PRN Reason Stop Dose Admin Acetaminophen 650 mg 05/21/21 13:53 05/22/21 09:33 Acetaminophen 325 Mg Tablet PO 650 mg Q6H PRN Administration Pain, Mild (Pain Scale 1-3) Albuterol/Ipratropium 3 ml 05/22/21 00:33 Albuterol/Iprat 2.5/0.5mg 3 Ml Ampul.Neb INHALE RQ4H PRN Shortness of Breath/Wheezing Albuterol/Ipratropium 3 ml 05/22/21 12:00 05/23/21 09:25 Albuterol/Iprat 2.5/0.5mg 3 Ml Ampul.Neb INHALE 3 ml RQ4H WHILE AWAKE OSIRIS Administration Amoxicillin/Clavulanate Potassium 875 mg 05/22/21 09:00 05/23/21 08:58 Amoxicillin/Potassium Clav 875 Mg Tablet PO 875 mg Q12H OSIRIS Administration Atorvastatin Calcium 20 mg 05/22/21 09:00 05/23/21 08:58 Atorvastatin Calcium 80 Mg Tablet PO 20 mg DAILY OSIRIS Administration Digoxin 0.25 mg 05/23/21 08:30 05/23/21 08:57 Digoxin 0.5 Mg/2 Ml Ampul IVPUSH 05/23/21 14:31 0.25 mg Q6H OSIRIS Administration Diltiazem HCl 120 mg 05/22/21 09:00 05/23/21 08:59 Diltiazem Hcl Cd 120 Mg Cap.Er.Deg PO 120 mg DAILY OSIRIS Administration Protocol Diltiazem HCl 240 mg 05/21/21 21:00 05/22/21 20:04 Diltiazem Hcl Cd 240 Mg Cap.Er.Deg PO 240 mg BEDTIME OSIRIS Administration Protocol Folic Acid 1 mg 05/22/21 09:00 05/23/21 08:58 Folic Acid 1 Mg Tablet PO 1 mg DAILY OSIRIS Administration Furosemide 40 mg 05/21/21 18:00 05/23/21 08:56 Furosemide 40 Mg/4 Ml Vial IVPUSH 40 mg BID@0900,1800 OSIRIS Administration Protocol Levothyroxine Sodium 112 mcg 05/23/21 06:45 05/23/21 06:43 Levothyroxine Sodium 112 Mcg Tablet PO 112 mcg DAILY@0630 OSIRIS Administration Melatonin 3 mg 05/21/21 13:53 05/22/21 23:28 Melatonin 3 Mg Tablet PO 3 mg BEDTIME PRN Administration Insomnia Metoprolol Succinate 50 mg 05/22/21 09:00 05/23/21 08:58 Metoprolol Succinate Er 50 Mg Tab.Er.24h PO 50 mg DAILY OSIRIS Administration Protocol Multivitamins/Minerals 1 tab 05/22/21 09:00 05/23/21 08:57 Multivitamin With Minerals Tablet PO 1 tab DAILY OSIRIS Administration Ondansetron HCl 4 mg 05/21/21 13:53 Ondansetron Hcl 4 Mg/2 Ml Vial IVPUSH Q8H PRN Nausea and Vomiting Pharmacy Consult 1 each 05/21/21 10:14 Consult Rx Perform Med Rec MISCELLANE ONCE PRN Consult order Polyethylene Glycol 17 gm 05/21/21 20:45 05/23/21 08:59 Polyethylene Glycol 3350 17 Gm Powd.Pack PO Not Given DAILY OSIRIS Sodium Chloride 3 ml 05/21/21 16:00 05/23/21 06:43 0.9 % Sodium Chloride Flush 3 Ml Syringe IVFLUSH 3 ml QSHIFT OSIRIS Administration Time Spent With Patient Time: Total time spent is greater than 50% in coordination of care (as documented) at patient's floor/unit and/or counseling patient: Time with patient: less than 15 minutes Progress Note: Quality Stroke Does the patient have a stroke diagnosis?: No Procedures Date of Service Date of Service: 05/23/21
[2021-05-23] MEDS: Lidocaine HCl 1 % MPF 5 ML VIAL SUBCUT (13:13)
--- NOTE | 2021-05-23 14:09 | PC.NURSE ---
Patient back to the room, s/p thoracentesis, VS stable patient breathing stable on 3L NC, patient resting comfortably
--- NOTE | 2021-05-23 14:20 | HO.PM.IMPN ---
Subjective Subjective Date of Service: 05/23/21 Interval History: Feeling anxious waiting for thoracocentesis less shortness of breath, no chest pain, no headache, no dizziness, no other acute issues overnight, is on 3 L of oxygen finger extremity 98%. Review of Systems General no headache, no dizziness, no fever chills.? CVS no chest pain, no palpitation.? Respiratory shortness of breath and cough Gastrointestinal no nausea, no vomiting, no abdominal pain Physical Exam Vital Signs: Vital Signs: Last Vital Signs Temp 97.6 F 05/23/21 13:57 Pulse 135 H 05/23/21 13:57 Resp 19 05/23/21 13:57 BP 109/66 05/23/21 13:57 Pulse Ox 91 L 05/23/21 13:57 Oxygen Flow Rate 1 05/21/21 09:49 Body Mass Index 30.0 General no respiratory distress.? Neck no JVD. CVS irregular rate rhythm, Respiratory lungs diminished breath sound at left side, no rhonchi , no use of accessory muscles Gastrointestinal abdomen soft, nontender, bowel sounds audible Extremities bilateral pitting edema. Neuro nonfocal Skin no rash Objective Data Active Medications Acetaminophen (Acetaminophen 325 Mg Tablet) 650 mg PO Q6H PRN PRN Reason: Pain, Mild (Pain Scale 1-3) Last Admin: 05/22/21 09:33 Dose: 650 mg Documented by: KATELYN Albuterol/Ipratropium (Albuterol/Iprat 2.5/0.5mg 3 Ml Ampul.Neb) 3 ml INHALE RQ4H PRN PRN Reason: Shortness of Breath/Wheezing Albuterol/Ipratropium (Albuterol/Iprat 2.5/0.5mg 3 Ml Ampul.Neb) 3 ml INHALE RQ4H WHILE AWAKE [facility] Last Admin: 05/23/21 11:17 Dose: 3 ml Documented by: [email or web address] Amoxicillin/Clavulanate Potassium (Amoxicillin/Potassium Clav 875 Mg Tablet) 875 mg PO Q12H [facility] Last Admin: 05/23/21 08:58 Dose: 875 mg Documented by: KATELYN Atorvastatin Calcium (Atorvastatin Calcium 80 Mg Tablet) 20 mg PO DAILY [facility] Last Admin: 05/23/21 08:58 Dose: 20 mg Documented by: KATELYN Digoxin (Digoxin 0.5 Mg/2 Ml Ampul) 0.25 mg IVPUSH Q6H [facility] Stop: 05/23/21 14:31 Last Admin: 05/23/21 08:57 Dose: 0.25 mg Documented by: KATELYN Diltiazem HCl (Diltiazem Hcl Cd 120 Mg Cap.Er.Deg) 120 mg PO DAILY [facility]; Protocol Last Admin: 05/23/21 08:59 Dose: 120 mg Documented by: KATELYN Diltiazem HCl (Diltiazem Hcl Cd 240 Mg Cap.Er.Deg) 240 mg PO BEDTIME [facility]; Protocol Last Admin: 05/22/21 20:04 Dose: 240 mg Documented by: RADHA Folic Acid (Folic Acid 1 Mg Tablet) 1 mg PO DAILY [facility] Last Admin: 05/23/21 08:58 Dose: 1 mg Documented by: KATELYN Furosemide (Furosemide 40 Mg/4 Ml Vial) 40 mg IVPUSH BID@0900,1800 [facility]; Protocol Last Admin: 05/23/21 08:56 Dose: 40 mg Documented by: KATELYN Levothyroxine Sodium (Levothyroxine Sodium 112 Mcg Tablet) 112 mcg PO DAILY@0630 [facility] Last Admin: 05/23/21 06:43 Dose: 112 mcg Documented by: STONE Melatonin (Melatonin 3 Mg Tablet) 3 mg PO BEDTIME PRN PRN Reason: Insomnia Last Admin: 05/22/21 23:28 Dose: 3 mg Documented by: RADHA Metoprolol Succinate (Metoprolol Succinate Er 50 Mg Tab.Er.24h) 50 mg PO DAILY [facility]; Protocol Last Admin: 05/23/21 08:58 Dose: 50 mg Documented by: KATELYN Multivitamins/Minerals (Multivitamin With Minerals Tablet) 1 tab PO DAILY [facility] Last Admin: 05/23/21 08:57 Dose: 1 tab Documented by: KATELYN Ondansetron HCl (Ondansetron Hcl 4 Mg/2 Ml Vial) 4 mg IVPUSH Q8H PRN PRN Reason: Nausea and Vomiting Pharmacy Consult (Consult Rx Perform Med Rec) 1 each MISCELLANE ONCE PRN PRN Reason: Consult order Polyethylene Glycol (Polyethylene Glycol 3350 17 Gm Powd.Pack) 17 gm PO DAILY [facility] Last Admin: 05/23/21 08:59 Dose: Not Given Documented by: KATELYN Non-Admin Reason: Patient Refused Sodium Chloride (0.9 % Sodium Chloride Flush 3 Ml Syringe) 3 ml IVFLUSH QSHIFT [facility] Last Admin: 05/23/21 06:43 Dose: 3 ml Documented by: STONE Labs CBC & Chem 7: 05/21/21 10:53 05/23/21 09:03 Labs: Laboratory Results - last 24 hr 05/22/21 05/22/21 05/23/21 16:06 20:03 09:03 PT INR Anion Gap 13 14 Estim Creat Clear Calc 47.8 66.4 Estimated GFR 51 > 60 Random Glucose 132 H D 124 H Calcium 8.3 L 8.3 L Magnesium 2.6 Lactate Dehydrogenase 318 H 324 H Total Protein 6.2 L 05/23/21 09:44 PT 12.1 INR 1.1 Anion Gap Estim Creat Clear Calc Estimated GFR Random Glucose Calcium Magnesium Lactate Dehydrogenase Total Protein Assessment and Plan (1) Atrial fibrillation with rapid ventricular response: Status: Acute (2) Acute diastolic (congestive) heart failure: Status: Acute (3) Pleural effusion: Status: Acute (4) COPD (chronic obstructive pulmonary disease): Status: Acute (5) Pneumonia: Status: Acute (6) Adenocarcinoma of left lung, stage 4: Status: Acute Assessment and Plan: 75-year-old female patient with stage IV lung cancer, currently receiving chemotherapy, presented with worsening shortness of breath, lower extremity edema of 2 weeks' duration. 1. Acute respiratory distress that seems multifactorial due to new onset congestive heart failure, atrial fibrillation, underlying stage IV cancer with new left pleural effusion and atelectasis ? ? No acute hypoxic respiratory failure, oxygenation remains stable above 90 ? ? Will continue IV Lasix fluid balance remains positive, will restrict by mouth intake strict I's and O's follow BMP and BNP.? Follow echocardiogram ? ? cont. chest PT, duoneb updraft q.4 hours,cont.augmentin ? ? thoracocentesis scheduled for today , plan is for bronchoscopy if lungs do not expand after thoracocentesis ? ? Continue close clinical monitoring ? 2. Atrial fibrillation with rapid ventricular response.? continued on metoprolol and Cardizem, hold Eliquis for thoracocentesis., case discussed with Dr. Whiting on digoxin for better heart rate control 3. History of 8th and 9th rib fractures.? Currently patient is not in pain.? Encourage? spirometry, pulmonary toilet and follow clinical course. 4. Deep vein thrombosis prophylaxis.?? on compression boots. 5. New-onset acute diastolic congestive heart failure elevated BNP continue Lasix, follow BMP and echocardiogram Quality Stroke Does the patient have a stroke diagnosis?: No VTE Prior VTE?: No VTE Risk Level:: Medical - moderate - high VTE Device Contraindication: N/A - Device Ordered VTE Drug Contraindication: Treatment Not Indicated
[2021-05-23 15:41] LABS: Total Protein 6.2 g/dL (6.5-8.0)
[2021-05-23 16:17] LABS: Lactate Dehydrogenase 307 U/L (122-220)
[2021-05-23] MEDS: dilTIAZem HCL CD 240 MG CAP.ER.DEG PO (19:55)
[2021-05-24] VITALS (12 sets, daily range): BP systolic 108–130; BP diastolic 49–65; PULSE 78–94; RESP 15–22; TEMP 36.1–36.9; O2SAT 94–96; BMI 29.9
[2021-05-24] MEDS: 0.9 % Sodium Chloride Flush 3 ML SYRINGE IVFLUSH ×3 (02:07→20:27)
[2021-05-24] MEDS: Levothyroxine Sodium 112 MCG TABLET PO (05:42)
[2021-05-24] MEDS: Albuterol/Iprat 2.5/0.5MG 3 ML AMPUL.NEB INHALE ×3 (07:24→19:41)
--- NOTE | 2021-05-24 07:30 | CA_ITS ---
Transthoracic Echocardiogram Patient (Last, First, Middle): Lorna Yung L Gender: Female Date of : 1945 Age: 75 Procedure Date: 05/24/2021 Procedure Type: Transthoracic Echocardiogram Location: [facility] [place] Height: 165.1 cm Weight: 81.19 kg BSA: 1.89 m2 Heart Rate: bpm BP: 117 / 74 mmHg Rouge Sifter And Miller: DSG Referring MD: Sandra Brumfield MD Symptoms: sob Study Quality: Technically Difficult ECG Rhythm: Atrial Fibrillation Conclusions: - The left ventricular systolic function is normal. The visually estimated ejection fraction is between 55-60%. - The basal inferior segment is akinetic. - The left atrium is severely dilated. - There is mild mitral valve regurgitation. Findings Left Ventricle Normal left ventricular cavity size. There is mildly increased left ventricular wall thickness. The left ventricular systolic function is normal. The visually estimated ejection fraction is between 55-60%. Diastolic function is indeterminate on the basis of available data. E/E prime ratio is >15, consistent with elevated filling pressures. Wall Motion Rest Echo Findings The basal inferior segment is akinetic. Right Ventricle Normal right ventricular cavity size and systolic function. Atria The left atrium is severely dilated. The right atrium is mildly dilated. Aortic Valve The aortic valve was not well visualized. There is no aortic valve stenosis. There is no aortic valve regurgitation. Mitral Valve There is mild mitral annular calcification. There is mild mitral valve regurgitation. There is no mitral valve stenosis. Pulmonic Valve The pulmonic valve was not well visualized. Tricuspid Valve There is mild tricuspid valve regurgitation. The pulmonary artery systolic pressure is normal. Great Vessels The aortic annulus, sinuses of valsalva, and asc aorta are normal in size. Venous The inferior vena cava is normal in size and collapses greater than 50% with inspiration. Pericardium/Pleural There is no evidence of pericardial effusion. Prior Study Comparison Changes noted compared to prior study dated: 09/26/2019. Pericardial effusion note seen. Measurements 2D Linear Measurements IVSd: 1.22 0.6-0.9/0.6-1.0 cm LVIDd: 4.84 3.9-5.3/4.2-5.9 cm LVIDd Index: 2.56 2.4-3.2/2.2-3.1 cm/m2 LVIDs: 3.47 2.0-3.6 cm LVPWd: 1.11 0.7-1.1 cm LA Diam: 4.40 2.7-3.8/3.0-4.0 cm LAIDs Index: 2.33 1.5-2.3 cm/m2 LV Mass: 265.43 67-162/88-224 g LV Mass Index: 140.44 43-95/49-115 g/m2 LVOT Diam: 2.00 3.0+(-)1.3 cm 2D Systolic Function EF 4C: 42.60 >55% EF 2C: 63.10 >55% EF BiP: 53.90 >55% Mitral Valve MV Pk E: 0.72 MV PK A: 0.42 MV Decel Time: 85.00 E/A: 1.70 E'Lateral: 4.13 E'Medial: 3.05 E/E' Med: 23.50 E/E' Lat: 17.30 PHT: 25.00 MVA PHT: 8.80 Decel [place]: 8.47 Aortic Valve AoV Pk Eliezer: 1.25 AoV Pk Grad: 6.00 LVOT LVOT Pk Eliezer: 0.78 LVOT Mn Eliezer: 0.52 LVOT VTI: 0.15 LVOT Pk Grad: 2.00 LVOT Mn Grad: 1.00 LVOT Diam: 2.00 LVOT Area: 3.14 Diastolic Function MV Pk E: 0.72 MV Pk A: 0.42 E/A: 1.70 E'Medial: 3.05 E/E' Med: 23.50 E' Laterial: 4.13 E/E' Lat: 17.30 Right Ventricle TAPSE (mm): 2.14 Tricuspid Valve TR Pk Eliezer: 2.62 TR Pk Grad: 27.00 RA Press: 3.00 RVSP: 30.00 Great Vessels Aorta Ao Asc: 3.40 2.1-3.4 cm Updated in Other Vendor System with Status of Final Spike Whiting MD electronically signed on 05/24/2021 2:29:02 PM with status of Final
[2021-05-24] MEDS: Furosemide 40 MG/4 ML VIAL IVPUSH (08:34)
[2021-05-24] MEDS: Amoxicillin/Potassium Clav 875 MG TABLET PO ×2 (08:35→20:19)
[2021-05-24] MEDS: Folic Acid 1 MG TABLET PO (08:35)
[2021-05-24] MEDS: dilTIAZem HCL CD 120 MG CAP.ER.DEG PO (08:37)
[2021-05-24] MEDS: Metoprolol Succinate ER 50 MG TAB.ER.24H PO (08:38)
--- NOTE | 2021-05-24 11:01 | MHC.CM.PN ---
PER MD ROUNDS, PT MAY DC TOMORROW. PLAN CONTINUES TO BE DC HOME WITH NO SERVICES.
--- NOTE | 2021-05-24 13:11 | P.PNPL_ITS ---
Subjective Subjective Date of Service: 05/24/21 Interval history: Patient was seen on exam. Feeling a lot better after the thoracentesis. They removed 2.1 L of katia looking fluid. Her respiratory status improved. Denies any chest pains after the procedure. She feels a lot better. She is now on room air. Her chest x-ray demonstrated expansion of the lung. He still has a congested cough. She is getting Augmentin for postobstructive pneumonia. Will continue to assess her pleural fluid in case is malignant issue reoccur quickly. If the fluid reoccur she may need to get a PleurX catheter prior to discharge. If the fluid does not reoccur quickly then we can talk about that as an outpatient. At this point based on her expansion of the lung improvement of her breathing we can hold off on a bronchoscopy. Objective Data Labs CBC & Chem 7: 05/21/21 10:53 05/23/21 09:03 Labs: Laboratory Results - last 24 hr 05/23/21 05/23/21 09:03 15:48 Lactate Dehydrogenase 307 H Total Protein 6.2 L 6.0 L Microbiology Microbiology Results: Microbiology 05/23/21 12:45 Thoracentesis Fluid Gram Stain - Final 05/23/21 12:45 Thoracentesis Fluid Routine Culture - Preliminary No growth to date. 05/23/21 12:45 Thoracentesis Fluid Anaerobic Culture - Preliminary No growth to date. Review of Systems Constitutional: Denies night sweats Denies change in voice, Denies lip swelling, Denies mouth pain, Reports nasal congestion, Reports nasal discharge and Denies tongue swelling Cardiovascular: Denies chest pain, Reports dyspnea and Reports dyspnea on exertion Respiratory: Denies chest congestion, Reports cough, Denies hemoptysis, Reports dyspnea and Reports dyspnea on exertion Gastrointestinal: Denies abdominal pain Musculoskeletal: Denies no additional musculoskeletal complaints Denies Neuro-related abnormal movements Psychiatric: Denies no additional psychiatric complaints Hematologic/Lymphatic: Denies easy bleeding and Denies lymphadenopathy Allergic/Immunologic: Denies lip swelling and Denies tongue swelling Physical Exam Vital Signs: Vital Signs: Last Vital Signs Temp 98.0 F 05/24/21 11:22 Pulse 94 05/24/21 11:22 Resp 22 H 05/24/21 11:22 BP 128/60 05/24/21 11:22 Pulse Ox 94 05/24/21 11:22 Oxygen Flow Rate 1 05/21/21 09:49 Body Mass Index 29.9 Const: General: alert Eyes: Pupils: Equal, round and reactive pupils present Neck: Neck: Yes normal visual inspection, Yes full ROM and Yes no lymphadenopathy Chest: Chest palpation & inspection: normal inspection of the chest Resp: Auscultation: diminished lung sounds Cardio: Rate: regular rate Rhythm: regular rhythm Heart sounds: S1 normal heart sound present and S2 normal heart sound present GI: Palpation (GI): Soft to palpation and nontender Auscultation: normal ismael wel sounds Skin: General skin exam: rashes and/or lesions noted Neuro: Cranial nerves: Yes Equal, round and reactive pupils present Procedures Date of Service Date of Service: 05/24/21 Assessment and Plan Assessment and plan (1) COPD (chronic obstructive pulmonary disease): Status: Acute (2) Adenocarcinoma of left lung, stage 4: Problem details: (LLL Adenocarcinoma - Stage IV, level 9 & 11 LNs positive + Brain Met - dx 01/2021) Status: Acute (3) Pleural effusion: Status: Acute Assessment and Plan: Repeat chest x-ray with we can reassess for any recurrence Sputum culture continue with the Augmentin for now Holding off on the bronchoscopy at this time Time Spent With Patient Time: Total time spent is greater than 50% in coordination of care (as documented) at patient's floor/unit and/or counseling patient: Time with patient: 15 - 24 minutes Progress Note: Quality Stroke Does the patient have a stroke diagnosis?: No
--- NOTE | 2021-05-24 16:39 | HO.PM.IMPN ---
Subjective Subjective Date of Service: 05/24/21 Interval History: Being followed for respiratory distress patient feeling significantly better this morning, less shortness of breath and cough, refusing to take Lipitor since was unable to walk while taking it in the past. Review of Systems General no headache, no dizziness, no fever chills.? CVS no chest pain, no palpitation.? Respiratory shortness of breath and cough improved significantly Gastrointestinal no nausea, no vomiting, no abdominal pain Physical Exam Vital Signs: Vital Signs: Last Vital Signs Temp 97 F 05/24/21 15:49 Pulse 93 05/24/21 15:49 Resp 15 05/24/21 15:49 BP 130/60 05/24/21 15:49 Pulse Ox 95 05/24/21 15:49 Oxygen Flow Rate 1 05/21/21 09:49 Body Mass Index 29.9 General no respira tory distress.? Ne ck no JVD. CVS irr egular rate rhythm , Respiratory lung s improved aeratio n left lung, no rh onchi , no use of accessory muscles decreased breath s ounds left base Ga strointestinal abd omen soft, nontend er, bowel sounds a udible Extremities bilateral pitting edema. Neuro nonf ocal Skin no rash Objective Data Active Medications Acetaminophen (Acetaminophen 325 Mg Tablet) 650 mg PO Q6H PRN PRN Reason: Pain, Mild (Pain Scale 1-3) Last Admin: 05/22/21 09:33 Dose: 650 mg Documented by: KATELYN Albuterol/Ipratropium (Albuterol/Iprat 2.5/0.5mg 3 Ml Ampul.Neb) 3 ml INHALE RQ4H PRN PRN Reason: Shortness of Breath/Wheezing Albuterol/Ipratropium (Albuterol/Iprat 2.5/0.5mg 3 Ml Ampul.Neb) 3 ml INHALE RQ4H WHILE AWAKE [facility] Last Admin: 05/24/21 14:48 Dose: 3 ml Documented by: BAYRON Amoxicillin/Clavulanate Potassium (Amoxicillin/Potassium Clav 875 Mg Tablet) 875 mg PO Q12H OSIRIS Last Admin: 05/24/21 08:35 Dose: 875 mg Documented by: STONE Diltiazem HCl (Diltiazem Hcl Cd 120 Mg Cap.Er.Deg) 120 mg PO DAILY [facility]; Protocol Last Admin: 05/24/21 08:37 Dose: 120 mg Documented by: STONE Diltiazem HCl (Diltiazem Hcl Cd 240 Mg Cap.Er.Deg) 240 mg PO BEDTIME OSIRIS; Protocol Last Admin: 05/23/21 19:55 Dose: 240 mg Documented by: RADHA Folic Acid (Folic Acid 1 Mg Tablet) 1 mg PO DAILY [facility] Last Admin: 05/24/21 08:35 Dose: 1 mg Documented by: STONE Levothyroxine Sodium (Levothyroxine Sodium 112 Mcg Tablet) 112 mcg PO DAILY@0630 [facility] Last Admin: 05/24/21 05:42 Dose: 112 mcg Documented by: GEOVANY Melatonin (Melatonin 3 Mg Tablet) 3 mg PO BEDTIME PRN PRN Reason: Insomnia Last Admin: 05/22/21 23:28 Dose: 3 mg Documented by: RADHA Metoprolol Succinate (Metoprolol Succinate Er 50 Mg Tab.Er.24h) 50 mg PO DAILY [facility]; Protocol Last Admin: 05/24/21 08:38 Dose: 50 mg Documented by: STONE Multivitamins/Minerals (Multivitamin With Minerals Tablet) 1 tab PO DAILY [facility] Last Admin: 05/24/21 08:37 Dose: 1 tab Documented by: STONE Non-Formulary Medication (Patient Own Medication) 1 each PO BEDTIME OSIRIS Ondansetron HCl (Ondansetron Hcl 4 Mg/2 Ml Vial) 4 mg IVPUSH Q8H PRN PRN Reason: Nausea and Vomiting Pharmacy Consult (Consult Rx Perform Med Rec) 1 each MISCELLANE ONCE PRN PRN Reason: Consult order Polyethylene Glycol (Polyethylene Glycol 3350 17 Gm Powd.Pack) 17 gm PO DAILY [facility] Last Admin: 05/24/21 08:38 Dose: Not Given Documented by: STONE Non-Admin Reason: Patient Refused Sodium Chloride (0.9 % Sodium Chloride Flush 3 Ml Syringe) 3 ml IVFLUSH QSHIFT [facility] Last Admin: 05/24/21 16:33 Dose: Not Given Documented by: ELIZABETH Non-Admin Reason: IVF Labs CBC & Chem 7: 05/21/21 10:53 05/23/21 09:03 Labs: Laboratory Results - last 24 hr 05/23/21 15:48 Lactate Dehydrogenase 307 H Total Protein 6.0 L Microbiology Microbiology Results: Microbiology 05/24/21 11:20 Gram Stain - Final Sputum - Expectorated Sputum Culture - Final 05/23/21 12:45 Gram Stain - Final Thoracentesis Fluid Routine Culture - Preliminary No growth to date. Anaerobic Culture - Preliminary No growth to date. Assessment and Plan (1) Atrial fibrillation with rapid ventricular response: Status: Acute (2) Acute diastolic (congestive) heart failure: Status: Acute (3) Pleural effusion: Status: Acute (4) COPD (chronic obstructive pulmonary disease): Status: Acute (5) Pneumonia: Status: Acute (6) Adenocarcinoma of left lung, stage 4: Status: Acute Assessment and Plan: 75-year-old female patient with stage IV lung cancer, currently receiving chemotherapy, presented with worsening shortness of breath, lower extremity edema of 2 weeks' duration. 1. Acute respiratory distress that seems multifactorial due to new onset congestive heart failure, atrial fibrillation, underlying stage IV cancer with new left pleural effusion and atelectasis ? ? No acute hypoxic respiratory failure, oxygenation improved 95% on 1.5 L Status post thoracocentesis 2.1 L of fluid was removed, since procedure patient is feeling significantly better Will wean oxygen patient is not on home O2 Will DC IV Lasix and switch to by mouth Lasix daily ? ? cont. chest PT, duoneb updraft q.4 hours,cont.augmentin ? ? Being followed by Dr. Moise he recommend repeat chest x-ray tomorrow chest x-ray remains stable patient will be discharged home ? 2. Atrial fibrillation with rapid ventricular response.? continued on metoprolol and Cardizem, resume Eliquis 3. History of 8th and 9th rib fractures.? Currently patient is not in pain.? Encourage? spirometry, pulmonary toilet and follow clinical course. 4. Deep vein thrombosis prophylaxis.?? on compression boots. 5. New-onset acute diastolic congestive heart failure elevated? BNP changed to by mouth Lasix, follow BMP/bnp and echocardiogram showed EF 55-60% and indeterminate diastolic function 6. Hyperlipidemia patient takes Crestor at home refusing to take Lipitor due to side effect with DC Lipitor patient will bring crestor from home Quality Stroke Does the patient have a stroke diagnosis?: No VTE Prior VTE?: No VTE Risk Level:: Medical - moderate - high VTE Device Contraindication: N/A - Device Ordered VTE Drug Contraindication: Treatment Not Indicated
[2021-05-24] MEDS: Apixaban 5 MG TABLET PO (20:19)
[2021-05-24] MEDS: dilTIAZem HCL CD 240 MG CAP.ER.DEG PO (20:19)
[2021-05-25 02:55] VITALS: BP 107/53; PULSE 94; RESP 18; TEMP 36.1; O2SAT 96
[2021-05-25 05:59] VITALS: BMI 29.2
[2021-05-25] MEDS: Levothyroxine Sodium 112 MCG TABLET PO (06:27)
[2021-05-25 06:52] LABS: Anion Gap 13 (12-20); Blood Urea Nitrogen 17 mg/dL (9-16); Carbon Dioxide 28 mmol/L (22-29); Chloride 103 mmol/L (96-108); Creatinine Clr Calc Pharmacy 72.3; Estimated Glomerular Filt Rate > 60; Glucose Random 99 mg/dL (60-115); Potassium 3.6 mmol/L (3.3-5.1); Sodium 140 mmol/L (135-145)
[2021-05-25 06:57] LABS: B Type Natriuretic Peptide 295 pg/mL (<100)
[2021-05-25] MEDS: Albuterol/Iprat 2.5/0.5MG 3 ML AMPUL.NEB INHALE (07:31)
[2021-05-25 07:32] VITALS: PULSE 84; O2SAT 95
[2021-05-25 07:38] VITALS: BP 125/62; PULSE 109; RESP 17; TEMP 36.2; O2SAT 99
[2021-05-25] MEDS: Metoprolol Succinate ER 50 MG TAB.ER.24H PO (08:54)
[2021-05-25] MEDS: Apixaban 5 MG TABLET PO (08:54)
[2021-05-25] MEDS: Amoxicillin/Potassium Clav 875 MG TABLET PO (08:54)
[2021-05-25] MEDS: Folic Acid 1 MG TABLET PO (08:55)
[2021-05-25] MEDS: dilTIAZem HCL CD 120 MG CAP.ER.DEG PO (08:55)
[2021-05-25] MEDS: 0.9 % Sodium Chloride Flush 3 ML SYRINGE IVFLUSH (08:55)
[2021-05-25] MEDS: Furosemide 40 MG/4 ML VIAL IVPUSH (10:30)
[2021-05-25 10:53] VITALS: PULSE 112
[2021-05-25] MEDS: Digoxin 0.125 MG TABLET PO (10:53)
[2021-05-25] MEDS: Acetaminophen 325 MG TABLET 650 MG PO (10:59)
[2021-05-25 12:00] VITALS: BP 121/60; PULSE 81; RESP 19; TEMP 36.3; O2SAT 94
--- NOTE | 2021-05-25 12:48 | PM.PNCARD ---
Subjective Subjective Date of Service: 05/25/21 Interval history: She states that she feels better. Review of Systems Review of Systems Yes all other systems are reviewed and are negative Cardiovascular: Reports as per HPI, Reports no additional cardiovascular complaints, Denies acrocyanosis, Denies cool extremities, Denies painful fingertips, Denies chest pain, Denies chest pain at rest, Denies diaphoresis, Denies syncope, Denies irregular heart rhythm, Denies claudication, Denies leg edema, Denies lightheadedness, Denies palpitations and Reports dyspnea Respiratory: Reports cough and Reports dyspnea Denies syncope Endocrine: Denies palpitations Physical Exam Vital Signs: Last Vital Signs Temp 97.1 F 05/25/21 07:38 Pulse 112 H 05/25/21 10:53 Resp 17 05/25/21 07:38 BP 125/62 05/25/21 07:38 Pulse Ox 99 05/25/21 07:38 Oxygen Flow Rate 1 05/21/21 09:49 Body Mass Index 29.2 Const Other: short of breath General: cooperative [facility] Other: Unremarkable Neck Neck: Yes normal visual inspection Chest Chest palpation & inspection: normal inspection of the chest Resp Other: Improved from yesterday; less wheezing. Cardio Jugular venous distension: no JVD Palpation: normal PMI Heart sounds: S1 normal heart sound present, S2 normal heart sound present, no gallops, no murmurs and no rubs GI Palpation (GI): Soft to palpation Back/Spine/Pelvis Other: unremarkable Skin General skin exam: no rashes or lesions noted Neuro Cranial nerves: Yes Other cranial nerve findings present Extrem General: Yes no clubbing, cyanosis or edema Psych Mental Status: other Results Labs and Meds Result diagrams: 05/21/21 10:53 05/25/21 05:54 Lab results: Laboratory Results - last 24 hr 05/25/21 05/25/21 05:54 05:54 Sodium 140 Potassium 3.6 Chloride 103 Carbon Dioxide 28 Anion Gap 13 BUN 17 H Creatinine 0.68 Estim Creat Clear Calc 72.3 Estimated GFR > 60 Random Glucose 99 Calcium 8.0 L B-Natriuretic Peptide 295 H Imaging Radiologist's impression: Impressions Chest X-Ray 05/25/21 08:15 IMPRESSION: Small right pleural effusion with underlying atelectasis. Moderate pulmonary vascular congestion. Normal-sized heart. Progress Note: A&P Assessment and plan (1) Acute diastolic (congestive) heart failure: Status: Acute (2) Atrial fibrillation with rapid ventricular response: Status: Acute Assessment and Plan: Overall, she seems much improved after thoracentesis. Atrial fibrillation also with improved rate. May remain on oral diltiazem, beta-blockers and digoxin. Digoxin level to be done a few days time. Continue Eliquis. May switch to oral diuretics. Fall Risk Details Current Medications: Current Medications Generic Name Dose Route Start Last Admin Trade Name Modestoq PRN Reason Stop Dose Admin Acetaminophen 650 mg 05/21/21 13:53 05/25/21 10:59 Acetaminophen 325 Mg Tablet PO 650 mg Q6H PRN Administration Pain, Mild (Pain Scale 1-3) Albuterol Sulfate 2 puff 05/25/21 07:32 Albuterol Sulfate 90 Mcg 8 Gm Inhaler INHALE RQ4H PRN Shortness of Breath Albuterol/Ipratropium 3 ml 05/22/21 00:33 Albuterol/Iprat 2.5/0.5mg 3 Ml Ampul.Neb INHALE RQ4H PRN Shortness of Breath/Wheezing Amoxicillin/Clavulanate Potassium 875 mg 05/22/21 09:00 05/25/21 08:54 Amoxicillin/Potassium Clav 875 Mg Tablet PO 875 mg Q12H OSIRIS Administration Apixaban 5 mg 05/24/21 21:00 05/25/21 08:54 Apixaban 5 Mg Tablet PO 5 mg BID OSIRIS Administration Digoxin 0.125 mg 05/25/21 10:30 05/25/21 10:53 Digoxin 0.125 Mg Tablet PO 0.125 mg DAILY OSIRIS Administration Diltiazem HCl 120 mg 05/22/21 09:00 05/25/21 08:55 Diltiazem Hcl Cd 120 Mg Cap.Er.Deg PO 120 mg DAILY OSIRIS Administration Protocol Diltiazem HCl 240 mg 05/21/21 21:00 05/24/21 20:19 Diltiazem Hcl Cd 240 Mg Cap.Er.Deg PO 240 mg BEDTIME OSIRIS Administration Protocol Folic Acid 1 mg 05/22/21 09:00 05/25/21 08:55 Folic Acid 1 Mg Tablet PO 1 mg DAILY OSIRIS Administration Levothyroxine Sodium 112 mcg 05/23/21 06:45 05/25/21 06:27 Levothyroxine Sodium 112 Mcg Tablet PO 112 mcg DAILY@0630 OSIRIS Administration Melatonin 3 mg 05/21/21 13:53 05/22/21 23:28 Melatonin 3 Mg Tablet PO 3 mg BEDTIME PRN Administration Insomnia Metoprolol Succinate 50 mg 05/22/21 09:00 05/25/21 08:54 Metoprolol Succinate Er 50 Mg Tab.Er.24h PO 50 mg DAILY OSIRIS Administration Protocol Multivitamins/Minerals 1 tab 05/22/21 09:00 05/25/21 08:54 Multivitamin With Minerals Tablet PO 1 tab DAILY OSIRIS Administration Non-Formulary Medication 1 each 05/25/21 09:00 05/25/21 09:09 Patient Own Medication PO Not Given DAILY OSIRIS Non-Formulary Medication 1 each 05/24/21 21:00 05/24/21 20:27 Patient Own Medication PO 1 each BEDTIME OSIRIS Administration Ondansetron HCl 4 mg 05/21/21 13:53 Ondansetron Hcl 4 Mg/2 Ml Vial IVPUSH Q8H PRN Nausea and Vomiting Pharmacy Consult 1 each 05/21/21 10:14 Consult Rx Perform Med Rec MISCELLANE ONCE PRN Consult order Polyethylene Glycol 17 gm 05/21/21 20:45 05/25/21 09:09 Polyethylene Glycol 3350 17 Gm Powd.Pack PO Not Given DAILY OSIRIS Sodium Chloride 3 ml 05/21/21 16:00 05/25/21 08:55 0.9 % Sodium Chloride Flush 3 Ml Syringe IVFLUSH 3 ml QSHIFT OSIRIS Administration Time Spent With Patient Time: Total time spent is greater than 50% in coordination of care (as documented) at patient's floor/unit and/or counseling patient: Time with patient: less than 15 minutes Progress Note: Quality Stroke Does the patient have a stroke diagnosis?: No Procedures Date of Service Date of Service: 05/25/21
[2021-05-25 13:46] VITALS: PULSE 83
--- NOTE | 2021-05-25 13:51 | PM.DS ---
DS: Providers Provider Date of Service: 05/25/21 Date of admission: 05/21/21 13:54 Primary care physician: Jamarcus Garnica MD Consults: 05/21/21 13:59 Consult to Pulmonology Routine Consulting Provider: Trey Moise Reason for consultation: sob/lung ca Has provider been notified: No 05/21/21 14:00 Consult to Cardiology Routine Consulting Provider: Spike Whiting Reason for consultation: chf Has provider been notified: No DS: Diagnosis Discharge Diagnosis (1) Acute diastolic (congestive) heart failure: Status: Acute (2) Atrial fibrillation with rapid ventricular response: Status: Acute DS: Summary Hospital Course Hospital Course: History of presenting illness HISTORY OF PRESENTING ILLNESS:? This is a 75-year-old female patient recently diagnosed to have stage IV lung cancer, status post left lower lobe wedge resection with a positive lymph node, currently receiving chemotherapy at [facility].? Her first chemotherapy was on May 17.? The patient recently evaluated by Dr. Rogers from [place] and was told that she does not have any heart issues contributing to shortness of breath.? She was recently evaluated by Dr. Moise with a 6-minute walk and did not qualify for oxygen.? According to the patient for last 2 weeks, she has been having worsening shortness of breath, associated with cough productive of clear phlegm.? She denies any fever, chills, rigors. She complains of worsening shortness of breath with exertion.? She lost 20 to 30 pounds in last 2 to 3 months.? She also noted significant bilateral lower extremity edema of same duration.? The patient has been compliant with home medications including Lasix, beta blockers and Cardizem.? She has also been placed on Decadron in the emergency room.? Her workup showed an elevated D-dimer of 611, WBC of 11.6.? Her BUN is slightly elevated at 33.? Otherwise, normal electrolytes.? Mildly elevated AST and ALT.? Recent LDL is 59 with an HDL of 41, lipase of 54.? A chest x-ray showed moderate left effusion that is new from the prior study of 02/08 and large cardiopericardial silhouette with pulmonary vascular congestion, status post lower thoracic vertebral augmentation.? A CTA chest was obtained that did not show any pulmonary embolism, but showed significant left-sided pleural effusion and innumerable small bilateral pulmonary nodules that seems to have increased in number compared to previous study of October 2020.? There is compressive atelectasis of the left upper and left lower lobes from the large left pleural effusion. There is left anterior 8th and 9th rib fractures.? Question mild T12 compression fracture and T11 vertebral body kyphoplasty that seems to be new since October of 2020.? EKG showed atrial fibrillation with rapid ventricular response with premature ventricular conducting complexes.? The patient is now being admitted to [facility] due to worsening shortness of breath related to congestive heart failure/underlying COPD/new left-sided pleural effusion with stage IV lung cancer. ? PAST MEDICAL HISTORY:? Significant for, 1. Atrial fibrillation since September of 2019, on Eliquis. 2. History of coronary artery disease. 3. History of PR. 4. History of hypertension. 5. Hypothyroidism. 6. Malignant neoplasm of the left lower bronchus, osteoporosis. 7. History of nicotine dependence. 8. History of pulmonary nodules. ? Hospital course 75-year-old female patient with stage IV lung cancer, currently receiving chemotherapy, presented with worsening shortness of breath, lower extremity edema of 2 weeks' duration, admitted to intermediate care unit with a diagnosis of Acute respiratory distress Likely multifactorial due to new onset congestive heart failure, atrial fibrillation with RVR, underlying stage IV cancer with new left pleural effusion, postobstructive pneumonia and atelectasis patient treated with intravenous Lasix, antibiotics updraft treatment chest PT and subsequently underwent thoracocentesis 2.1 L of fluid was removed, since procedure patient is feeling significantly better, her oxygen has been weaned to off, BNP significantly improved, therefore patient is being discharged home on by mouth antibiotics, and diuretics and recommended to follow low-salt diet, outpatient follow-up with Dr. Moise for close monitoring for reaccumulation of pleural effusion ? ? In regard to atrial fibrillation with rapid ventricular response patient was followed closely by Cardiology hand was given digoxin load, continued on metoprolol,Cardizem, and Eliquis, patient ventricular rate improved, is being discharged on home medications and digoxin 0.125 mg daily recommended to check digoxin level next week, she has been recommended to follow-up with her primary film processor Dr. Griffith. In regard to New-onset acute diastolic congestive heart failure, elevated? BNP she was treated with intravenous Lasix, echocardiogram showed EF 55-60% and indeterminate diastolic function, she is being discharged on Lasix home dose 80 mg daily and low-salt diet, she will also continue her home dose of Crestor. Time Spent with Patient Time attestation: Total time spent providing and/or coordinating discharge services: Discharge coordination time: Greater than 30 minutes Quality: Stroke Does the patient have a stroke diagnosis?: No Physical Exam Vital Signs: Vital Signs: Last Vital Signs Temp 97.3 F 05/25/21 12:00 Pulse 83 05/25/21 13:46 Resp 19 05/25/21 12:00 BP 121/60 05/25/21 12:00 Pulse Ox 94 05/25/21 12:00 Oxygen Flow Rate 1 05/21/21 09:49 Body Mass Index 29.2 General no respiratory distress.? Neck no JVD. CVS irregular rate rhythm, Respiratory lungs improved aeration left lung, no rhonchi , no use of accessory muscles,decreased breath sounds bilaterally Gastrointestinal abdomen soft, nontender, bowel sounds audible Extremities?bilateral pitting?edema. Neuro nonfocal Skin no rash DS: Data Data Completed and Pending Pending studies at discharge: Pending at discharge 05/23/21 14:52 Cytology [PTH] Routine Labs on day of discharge: Laboratory Results - last 24 hr 05/25/21 05/25/21 05:54 05:54 Sodium 140 Potassium 3.6 Chloride 103 Carbon Dioxide 28 Anion Gap 13 BUN 17 H Creatinine 0.68 Estim Creat Clear Calc 72.3 Estimated GFR > 60 Random Glucose 99 Calcium 8.0 L B-Natriuretic Peptide 295 H Preliminary micro results at discharge 05/23/21 12:45 Anaerobic Culture - Preliminary Thoracentesis Fluid No growth to date. Discharge Plan Discharge Patient Disposition: Home Health Service Discharge Diagnosis: Acute diastolic congestive heart failure Atrial fibrillation with RVR Acute respiratory distress with left pleural effusion Referrals: Jamarcus Garnica MD [Primary Care Provider] - 1 Week Discharge Medications: New digoxin 125 mcg (0.125 mg) Tablet 0.125 mg PO DAILY Qty: 30 RF: 0 amoxicillin-pot clavulanate 875-125 mg Tablet 875 mg PO Q12H Qty: 7 RF: 0 Continued ondansetron HCl [Zofran] 4 mg Tablet 8 mg PO Q8H Qty: 60 RF: 5 folic acid 1 mg Tablet 1 mg PO DAILY Qty: 90 RF: 4 metoprolol succinate 50 mg tablet extended release 24 hr 1 tab PO DAILY RF: 0 ProAir RespiClick 90 mcg/actuation aerosol powdr breath activated 2 puff PO Q4H RF: 0 diltiazem HCl [DILT-XR] 120 mg capsule,ext.rel 24h degradable 120 mg PO DAILY RF: 0 Eliquis 5 mg tablet 5 mg PO BID RF: 0 rosuvastatin 20 mg tablet 20 mg PO DAILY RF: 0 furosemide 40 mg tablet 80 mg PO DAILY RF: 0 aspirin 81 mg tablet,delayed release (DR/EC) 81 mg PO DAILY RF: 0 levothyroxine 112 mcg tablet 112 mcg PO DAILY RF: 0 diltiazem HCl 240 mg capsule,ext.rel 24h degradable 240 mg PO BEDTIME RF: 0 Centrum Silver 0.4-300-250 mg-mcg-mcg tablet 1 tab PO DAILY RF: 0 Discontinued dexamethasone [Decadron] 4 mg Tablet 4 mg PO BID Qty: 100 RF: 4 Discharge Orders: Discharge Order (Routine); Ordered 05/25/21 Ordered By: Sandra Brumfield Diet: low fat, low cholesterol Activity on Discharge: As tolerated Stand Alone Forms: Patient Portal Discharge page Other Ambulatory Orders: Digoxin (Routine) Timeframe: [id number] Facility: [facility] - Location: Laboratory Ordered By: Sandra Brumfield Care Plan Goals: Return to check with any worsening symptoms of shortness of breath, take all medications as prescribed Health Concerns: Take all home medications as before restrict use of salt due to heart failure, check digoxin level next week Plan of Treatment: Outpatient follow-up with Cardiology Dr. Griffith in next 1-2 weeks outpatient follow-up with Dr. Moise in 1 week, and with Dr. Christianson as previously planned Assessment: As above
--- NOTE | 2021-05-25 14:18 | MHC.CM.PN ---
IMM 05/25/21 Female 75 DX HF Met with Patient for DP She is discharged home with services, NA. She has arranged for transport home.
--- NOTE | 2021-05-25 23:19 | PM.PNPUL ---
Subjective Subjective Date of Service: 05/25/21 Interval history: Seen and examined. Feeling better, on RA. CXR today with vascular consgestion and given lasix, effusion is stable. Pt will like to go home. Objective Data Labs CBC & Chem 7: 05/21/21 10:53 05/25/21 05:54 Labs: Laboratory Results - last 24 hr 05/25/21 05/25/21 05:54 05:54 Sodium 140 Potassium 3.6 Chloride 103 Carbon Dioxide 28 Anion Gap 13 BUN 17 H Creatinine 0.68 Estim Creat Clear Calc 72.3 Estimated GFR > 60 Random Glucose 99 Calcium 8.0 L B-Natriuretic Peptide 295 H Microbiology Microbiology Results: Microbiology 05/23/21 12:45 Thoracentesis Fluid Gram Stain - Final 05/23/21 12:45 Thoracentesis Fluid Routine Culture - Final No growth after 2 days 05/23/21 12:45 Thoracentesis Fluid Anaerobic Culture - Preliminary No growth to date. 05/24/21 11:20 Sputum - Expectorated Gram Stain - Final 05/24/21 11:20 Sputum - Expectorated Sputum Culture - Final Review of Systems Constitutional: Denies night sweats Denies change in voice, Denies lip swelling, Denies mouth pain, Reports nasal congestion, Reports nasal discharge and Denies tongue swelling Cardiovascular: Denies chest pain, Reports dyspnea and Reports dyspnea on exertion Respiratory: Denies chest congestion, Reports cough, Denies hemoptysis, Reports dyspnea and Reports dyspnea on exertion Gastrointestinal: Denies abdominal pain Musculoskeletal: Denies no additional musculoskeletal complaints Denies Neuro-related abnormal movements Psychiatric: Denies no additional psychiatric complaints Hematologic/Lymphatic: Denies easy bleeding and Denies lymphadenopathy Allergic/Immunologic: Denies lip swelling and Denies tongue swelling Physical Exam Vital Signs: Vital Signs: Last Vital Signs Temp 97.3 F 05/25/21 12:00 Pulse 83 05/25/21 13:46 Resp 19 05/25/21 12:00 BP 121/60 05/25/21 12:00 Pulse Ox 94 05/25/21 12:00 Oxygen Flow Rate 1 05/21/21 09:49 Body Mass Index 29.2 Const: General: alert Neck: Neck: Yes normal visual inspection, Yes full ROM and Yes no lymphadenopathy Chest: Chest palpation & inspection: normal inspection of the chest Resp: Auscultation: diminished lung sounds Cardio: Rate: regular rate Rhythm: regular rhythm Heart sounds: S1 normal heart sound present and S2 normal heart sound present GI: Palpation (GI): Soft to palpation and nontender Auscultation: normal bowel sounds Procedures Date of Service Date of Service: 05/25/21 Assessment and Plan Assessment and plan (1) Acute diastolic (congestive) heart failure: Status: Acute (2) Pleural effusion: Status: Acute (3) COPD (chronic obstructive pulmonary disease): Status: Acute (4) Pneumonia: Status: Acute (5) Adenocarcinoma of left lung, stage 4: Problem details: (LLL Adenocarcinoma - Stage IV, level 9 & 11 LNs positive + Brain Met - dx 01/2021) Status: Acute Assessment and Plan: Complete abx course Walking oximetry prior to d/c Will arrange F/U next week with pulmonary Pt will return to the ER is her symptoms worsen Time Spent With Patient Time: Total time spent is greater than 50% in coordination of care (as documented) at patient's floor/unit and/or counseling patient: Time with patient: 15 - 24 minutes Progress Note: Quality Stroke Does the patient have a stroke diagnosis?: No
== END 2021-05-25 16:10 | disposition home health service (06) | DRG 193 ==
LOC: HO.ED 14:09 → HO.EDOVER 14:47 → HO.IMC 17:29
PROVIDERS: Internal Medicine; Radiology Diagnostic Radiology; Admitting Provider Hospitalist; Emergency Provider Emergency Medicine; PCP Internal Medicine; Visit Provider Hospitalist
PROC: 0W9B3ZZ Drainage of Left Pleural Cavity, Percutaneous Approach (ICD-10-PCS; principal; 2021-05-23 12:00)
DX: J18.9 Pneumonia, unspecified organism (principal); I50.31 Acute diastolic (congestive) heart failure; C34.32 Malignant neoplasm of lower lobe, left bronchus or lung; J91.8 Pleural effusion in other conditions classified elsewhere; J44.0 Chronic obstructive pulmonary disease with (acute) lower respiratory infection; J98.11 Atelectasis; C79.31 Secondary malignant neoplasm of brain; I25.2 Old myocardial infarction; E78.5 Hyperlipidemia, unspecified; E03.9 Hypothyroidism, unspecified; Z20.822 Contact with and (suspected) exposure to COVID-19; R06.03 Acute respiratory distress; Z87.891 Personal history of nicotine dependence; Z88.5 Allergy status to narcotic agent; Z79.01 Long term (current) use of anticoagulants; Z79.82 Long term (current) use of aspirin; Z79.890 Hormone replacement therapy; Z79.899 Other long term (current) drug therapy
CPT/HCPCS: 32550; 32555; 36415; 71045; 71046; 71250; 71275; 80048; 80076; 80162; 81001; 81003; 83615; 83690; 83735; 83880; 84155; 84484; 85025; 85027; 85610; 87070; 87071; 87073; 87205; 87635; 88112; 88305; 88341; 88342; 93005; 93306; 94640; 96374; 96375; 99152; 99153; 99285; C1729; J1160; J1940; J2930; Q9967

== ENCOUNTER 2021-05-31 09:00 | Outpatient (REF) | payer MEDICARE, SELFPAY ==
--- NOTE | ~2021-05-31 | XR_ITS ---
EXAMINATION: XR THORACIC SPINE XR LUMBAR SPINE CLINICAL INFORMATION: Dorsalgia COMPARISON: None TECHNIQUE: 3 views of the thoracic spine and 3 views of the lumbar spine FINDINGS: Decreased bone mineral density which decreases sensitivity for fracture evaluation. 5 nonrib-bearing lumbar-type vertebral bodies. No acute visible fracture or dislocation. Dextrocurvature of the thoracic spine. Status post vertebral augmentation of T11, grossly intact. Grade 1 anterolisthesis of L4 on L5. Mild narrowing of the T12 vertebral body, age indeterminate. Multilevel degenerative changes with disc space narrowing, endplate sclerosis, vacuum disc phenomenon, osteophyte formation, and robust lower lumbar spine facet arthropathy. Vertebral body heights and disc spaces are otherwise maintained. Posterior elements are intact. Paraspinal soft tissues are unremarkable. Visualized portions of the chest are unremarkable. Atherosclerotic calcifications of the abdominal aorta. Visualized bowel gas is unremarkable. XR/XR thoracic spine 2V IMPRESSION: 1. Osteopenia which decreases sensitivity for fracture evaluation. 2. No acute visible fracture or dislocation. 3. Status post vertebral augmentation of T11, grossly intact. 4. Mild narrowing of the T12 vertebral body, age indeterminate, correlation with physical exam. 5. Multilevel degenerative changes with grade 1 anterolisthesis of L4 on L5.
--- NOTE | ~2021-05-31 | XR_ITS ---
EXAMINATION: XR THORACIC SPINE XR LUMBAR SPINE CLINICAL INFORMATION: Dorsalgia COMPARISON: None TECHNIQUE: 3 views of the thoracic spine and 3 views of the lumbar spine FINDINGS: Decreased bone mineral density which decreases sensitivity for fracture evaluation. 5 nonrib-bearing lumbar-type vertebral bodies. No acute visible fracture or dislocation. Dextrocurvature of the thoracic spine. Status post vertebral augmentation of T11, grossly intact. Grade 1 anterolisthesis of L4 on L5. Mild narrowing of the T12 vertebral body, age indeterminate. Multilevel degenerative changes with disc space narrowing, endplate sclerosis, vacuum disc phenomenon, osteophyte formation, and robust lower lumbar spine facet arthropathy. Vertebral body heights and disc spaces are otherwise maintained. Posterior elements are intact. Paraspinal soft tissues are unremarkable. Visualized portions of the chest are unremarkable. Atherosclerotic calcifications of the abdominal aorta. Visualized bowel gas is unremarkable. XR/XR lumbar spine 2-3V IMPRESSION: 1. Osteopenia which decreases sensitivity for fracture evaluation. 2. No acute visible fracture or dislocation. 3. Status post vertebral augmentation of T11, grossly intact. 4. Mild narrowing of the T12 vertebral body, age indeterminate, correlation with physical exam. 5. Multilevel degenerative changes with grade 1 anterolisthesis of L4 on L5.
--- NOTE | ~2021-05-31 | XR_ITS ---
EXAMINATION: XR CHEST CLINICAL INFORMATION: Back pain COMPARISON: Previous chest x-rays most recent 05/25/[address] a June 2021 TECHNIQUE: 2 views of the chest were obtained. FINDINGS: The cardiac silhouette is enlarged but stable. There are innumerable small miliary pulmonary nodules. There is a small right pleural effusion and a moderate left pleural effusion. Left pleural effusion is increased compared to 05/25/2021 chest x-ray. There are degenerative changes of the spine. There is an old compression fracture and kyphoplasty change of the T11 vertebral body. XR/XR chest 2V IMPRESSION: Innumerable small miliary-appearing pulmonary nodules. Bilateral pleural effusions, left greater than right. Left pleural effusion is increased compared to most recent chest x-ray 05/25/2021.
== END 2021-05-31 09:01 | disposition home or self-care (01) ==
LOC: HO.XRAY 09:00
PROVIDERS: PCP Internal Medicine; Visit Provider Hospitalist
DX: M54.9 Dorsalgia, unspecified (principal); J90 Pleural effusion, not elsewhere classified; J18.9 Pneumonia, unspecified organism; C34.92 Malignant neoplasm of unspecified part of left bronchus or lung
CPT/HCPCS: 71046; 72070; 72100; 99212

== ENCOUNTER 2021-06-13 14:38 | Outpatient (REF) | payer MEDICARE, SELFPAY ==
--- NOTE | ~2021-06-13 | XR_ITS ---
EXAMINATION: XR CHEST CLINICAL INFORMATION: Bilateral pleural effusions. COMPARISON: Chest 05/31/2021 TECHNIQUE: 2 views of the chest were obtained. FINDINGS: There is a large left pleural effusion which is increased since the previous study. There is increased vascular markings in both lungs suggestive of mild congestion. Prominent reticular nodular changes in both lungs are similar to previous study. Heart size is enlarged. No gross bony abnormality. XR/XR chest 2V IMPRESSION: Moderate to large left pleural effusion increased since previous study. Vertigo nodular changes in both lungs especially left lung appears stable. Underlying mild pulmonary vascular congestion is suspected.
[2021-06-13 16:07] LABS: Basophils Percent Auto 0.5 % (0-2); Hematocrit 37.7 % (37-47); Hemoglobin 12.7 g/dl (12.0-16.0); Imm Gran Abs Auto 0.01 X10*3/uL (0.00-0.03); Imm Gran Pct Auto 0.5 % (0.0-0.4); Lymphocytes Absolute Auto 0.7 X10*3/uL (1.2-4.9); Lymphocytes Percent Auto 33.3 % (20-40); MANUAL DIFF FLAG SCAN; Mean Corpuscular HGB Conc 33.7 g/dl (31.0-35.0); Mean Corpuscular Hemoglobin 31.1 pg (27.0-33.0); Mean Corpuscular Volume 92.4 fL (80-98); Monocytes Absolute Auto 0.1 X10*3/uL (0.1-1.2); Monocytes Percent Auto 2.3 % (2-11); Neutrophils Absolute Auto 1.4 X10*3/uL (2.0-8.3); Neutrophils Percent Auto 63.4 % (45-73); Platelet Count 282 X10*3/uL (160-400); Red Blood Count 4.08 X10*6/uL (4.20-5.50); Red Cell Distribution Width 17.2 % (11.0-16.0); SCAN SMEAR FLAG 1
[2021-06-13 16:12] LABS: White Blood Count 2.2 X10*3/uL (4.8-10.8)
[2021-06-13 16:21] LABS: Anion Gap 14 (12-20); Blood Urea Nitrogen 18 mg/dL (9-16); Calcium 8.5 mg/dL (8.4-10.2); Carbon Dioxide 27 mmol/L (22-29); Chloride 103 mmol/L (96-108); Estimated Glomerular Filt Rate > 60; Glucose Random 120 mg/dL (60-115); Potassium 4.2 mmol/L (3.3-5.1); Sodium 140 mmol/L (135-145)
[2021-06-13 16:35] LABS: Digoxin 0.9 ng/mL (0.8-2.0)
[2021-06-13 16:55] LABS: SLIDE REVIEW VERIFIED
[2021-06-13 17:02] LABS: Erythrocyte Sedimentation Rate 60 MM/HR (0-20)
[2021-06-13 17:51] LABS: B Type Natriuretic Peptide 257 pg/mL (<100); Troponin-I High Sensitivity 31.9 ng/L (<3.5-17.0)
== END 2021-06-13 14:39 | disposition home or self-care (01) ==
LOC: HO.XRAY 14:38
PROVIDERS: Hospitalist; Absent Provider Internal Medicine Medical Oncology; PCP Internal Medicine; Visit Provider Hospitalist
DX: C34.32 Malignant neoplasm of lower lobe, left bronchus or lung (principal); J90 Pleural effusion, not elsewhere classified; I50.9 Heart failure, unspecified; J18.9 Pneumonia, unspecified organism; I48.91 Unspecified atrial fibrillation
CPT/HCPCS: 36415; 71046; 80048; 80162; 83880; 84484; 85025; 85652; 99212

== ENCOUNTER 2021-06-14 14:51 | Inpatient (IN) | payer MEDICARE, SELFPAY ==
--- NOTE | ~2021-06-14 | XR_ITS ---
EXAMINATION: XR CHEST CLINICAL INFORMATION: Shortness of breath. COMPARISON: Multiple priors. Most recent chest radiograph 06/13/2021. TECHNIQUE: AP view of the chest was obtained. FINDINGS: Unchanged appearance of the cardiomediastinal silhouette. Similar left pleural effusion and reticulonodular opacities throughout both lungs. No pneumothorax. No acute osseous findings. XR/XR chest 1V IMPRESSION: Stable examination with redemonstration of a left sided pleural effusion and reticulonodular opacities in both lungs.
--- NOTE | ~2021-06-14 | US_ITS ---
EXAMINATION: ULTRASOUND-GUIDED INSERTION PLEURX CATHETER CLINICAL INFORMATION: Stage IV lung cancer. Left pleural effusion. COMPARISON: Previous chest x-ray and chest CT from earlier this month. TECHNIQUE: Procedure and risks and benefits including bleeding, infection and pneumothorax were discussed with the patient and informed consent was obtained. All elements of maximal sterile barrier technique followed including use of cap, mask, sterile gown, sterile gloves, a sterile full body drape and hand hygiene. Also followed skin preparation with 2% chlorhexidine for cutaneous antisepsis, and sterile ultrasound preparation with sterile gel and probe cover when applicable. The patient was positioned in the right decubitus position. The left posterior lateral chest wall was prepped and draped in the usual sterile fashion. The skin and soft tissues were anesthetized with 1% lidocaine plain. Using a 5 [place]an Angiocath, access to the left pleural effusion was obtained. The skin and soft tissues of the more anterior left chest wall were anesthetized with 1% lidocaine plain. A small incision was made. A subcutaneous tunnel from the second to the first incision was anesthetized with 1% lidocaine plain. Using a tunneler, a 15 [place]an Pleurx catheter was tunneled from the second to the first incision. An 035 guidewire was advanced through the 5 [place] Angiocath into the left pleural space. Catheter was exchanged for a 15 [place] peel-away sheath. The Pleurx catheter was fed through the peel-away sheath. The incisions were closed using 3-0 absorbable subcuticular suture and 3-0 absorbable mattress suture. The Pleurx catheter was attached to a Vacutainer bottle. 1 L of serosanguineous fluid was removed. Patient received Kefzol 2 g IV, Versed 1 mg, 5 mg and 50 micrograms intravenously during the procedure. Total sedation time was 45 minutes. Conscious sedation was provided by a registered nurse under my direct supervision with continuous hemodynamic monitoring. No diagnostic specimen was sent. Postprocedure chest x-ray was performed. FINDINGS: Initial ultrasound demonstrates a large left pleural effusion. US/US insertion pluerx cath IMPRESSION: Left chest 15 [place]an Pleurx tunneled chest tube placement.
--- NOTE | ~2021-06-14 | XR_ITS ---
EXAMINATION: XR CHEST CLINICAL INFORMATION: Post left chest tube insertion. COMPARISON: None TECHNIQUE: Frontal view of the chest was obtained. FINDINGS: There is moderate opacity in the left lung base from pleural effusion. There is a replaced left chest tube with its tip in the left lung base. Rest of lungs are well-expanded and clear. The heart size is enlarged. The aorta is ectatic. XR/XR chest 1V IMPRESSION: Cardiomegaly no acute process seen. Newly placed left Pleurx catheter is in left lower lobe.
--- NOTE | ~2021-06-14 | CT_ITS ---
EXAMINATION: CT CHEST WITHOUT CONTRAST CLINICAL INFORMATION: Unresolved effusion. Question pneumonia. COMPARISON: Multiple priors, most recent chest radiograph dated 06/14/2021 and CTA chest dated 05/21/2021. TECHNIQUE: Multidetector volumetric CT imaging of the chest was done. Axial MIP volume rendering provided. Sagittal and coronal reformatted images were obtained. This CT examination was performed using dose optimization techniques as appropriate, variously including the following: *Automated exposure control *Adjustment of mA and/or kV according to patient size (this includes techniques or standardized protocols for targeted exams where dose is matched to indication/reason for exam; i.e. extremities or head) *Use of iterative reconstruction technique DLP: 270 mGy-cm FINDINGS: LEAK INSPECTOR: Moderate left-sided pleural effusion. LUNGS/PLEURA: Moderate left-sided pleural effusion, decreased in size when compared to the chest CT dated 05/21/2021. Complete collapse of the left upper lobe is redemonstrated. Adjacent atelectasis versus infiltrates within the left lower lobe are redemonstrated. No new, increasing airspace consolidation. Diffuse interstitial prominence with scattered micronodularity is redemonstrated throughout the lungs, slightly increased in prominence when compared to the prior CT. Direct comparison is difficult given the number of nodules. MEDIASTINUM: No cardiomegaly. No pericardial effusion. No thoracic aortic dilatation. Atherosclerotic calcifications. Redemonstration of superior mediastinal lymph nodes anterior to the trachea measuring up to 1.2 x 1.5 cm, similar when compared to the prior CT. PLEURA: No pneumothorax. Moderate left-sided pleural effusion, decreased when compared to the prior CT. AXILLA: No lymphadenopathy. UPPER ABDOMEN: Mild fullness of the left adrenal gland is unchanged. Otherwise, the visualized upper abdominal structures are unremarkable. OSSEOUS STRUCTURES: Chronic left-sided rib fractures are redemonstrated. Compression deformity and kyphoplasty redemonstrated at T11. Stable mild superior endplate compression deformity at T12. CT/CT chest wo con IMPRESSION: 1. Moderate left-sided pleural effusion, decreased in size when compared to the prior CT. Complete collapse of the left upper lobe is redemonstrated. Adjacent atelectasis versus infiltrates in the left lower lobe are unchanged. No new large, confluent airspace consolidation. 2. Diffuse interstitial prominence and nodularity redemonstrated within the right lung, slightly increased in prominence when compared to the prior examination. 3. Enlarged superior mediastinal lymph nodes, similar when compared to the prior CT.
[2021-06-14 14:53] VITALS: BP 128/62; PULSE 88; RESP 16; TEMP 36.6; O2SAT 95; BMI 26.9
--- NOTE | 2021-06-14 17:27 | ECG_ITS ---
Test Reason : DYSPENA Blood Pressure : / mmHG Vent. Rate : 091 BPM Atrial Rate : 082 BPM P-R Int : 000 ms QRS Dur : 114 ms QT Int : 350 ms P-R-T Axes : 000 002 189 degrees QTc Int : 430 ms Atrial fibrillation Marked ST abnormality, possible lateral subendocardial injury Abnormal ECG When compared with ECG of 21-MAY-2021 10:16, ST now depressed in Anterolateral leads Referred By: Ameena Sood Electronically Signed By:ABIODUN ZUÑIGA
[2021-06-14 17:39] VITALS: BP 132/69; PULSE 75; RESP 22; O2SAT 95
--- NOTE | 2021-06-14 17:40 | ED_ITS ---
HPI - SOB/Dyspnea General Chief Complaint: Dyspnea Stated Complaint: lung pain Time Seen by Provider: 06/14/21 16:56 History of Present Illness HPI Narrative: Patient is 75 years old with a history of lung cancer. History of pleural effusion in the left lower lung. Patient also has a history of congestive heart failure. Been noticing increasing shortness of breath. Currently undergoing chemo. Currently also has a history of atrial fibrillation and is on Eliquis. Was seen by the director global market research yesterday for having increasing shortness of breath. And chest x-ray done yesterday showed large amount of pleural effusion. Patient's pleural effusions been tapped in the past. There is no malignant cells it was found. There was documentation that patient may benefit from a PleurX catheter. Patient feels increasing shortness of breath. Wants to be admitted as per discussion with director global market research yesterday. She denies any new coughing. She is immunized for COVID over 2 weeks ago. She denies any diaphoresis. Positive leg swelling which is chronic. The dose of Lasix is unchanged. Patient feel more short of breath when she ambulates. Related Data Home Medications Medication Instructions Recorded Confirmed apixaban 5 mg tablet (Eliquis) 5 mg PO BID 11/30/20 06/07/21 aspirin 81 mg tablet,delayed 81 mg PO DAILY 11/30/20 06/07/21 release rosuvastatin 20 mg tablet 20 mg PO DAILY 11/30/20 06/07/21 diltiazem HCl 240 mg 240 mg PO BEDTIME 02/08/21 06/07/21 capsule,extended release 24 hr, controlled levothyroxine 112 mcg tablet 112 mcg PO DAILY 02/08/21 06/07/21 dizogzib-gan-psplr acid 0.4 1 tab PO DAILY 02/08/21 06/07/21 mg-lycopene 300 mcg-lutein 250 mcg tablet (Centrum Silver) albuterol sulfate 90 mcg/actuation 2 puff PO Q4H 05/21/21 06/07/21 breath activated powder inhaler (ProAir RespiClick) diltiazem HCl 120 mg 120 mg PO DAILY 05/21/21 06/07/21 capsule,extended release 24 hr, controlled (DILT-XR) metoprolol succinate 50 mg 1 tab PO DAILY 05/21/21 06/07/21 tablet,extended release 24 hr furosemide 40 mg tablet 80 mg PO DAILY 06/13/21 Previous Rx's Medication Instructions Recorded folic acid 1 mg tablet 1 mg PO DAILY #90 tab 05/15/21 digoxin 125 mcg (0.125 mg) tablet 0.125 mg PO DAILY #30 tab 05/25/21 Allergies Allergy/AdvReac Type Severity Reaction Status Date / Time codeine [CODEINE] Allergy Severe SEVERE Verified 06/13/21 15:02 HEADACHE latex [LATEX] Allergy Intermediate RASH/HIVES Verified 06/13/21 15:02 Review of Systems Review of Systems: Positive shortness of breath No fever no chills Positive coughing All systems reviewed otherwise negative Yes all other systems are reviewed and are negative [facility] Past Medical History Medical History (Updated 06/14/21 @ 20:22 by Ameena Sood MD) Adenocarcinoma of left lung, stage 4 (~01/2021) Adenocarcinoma of left lung, stage 4 Atrial fibrillation (~09/2019) Back pain CAD (coronary artery disease) CHF (congestive heart failure) COPD (chronic obstructive pulmonary disease) Heart failure History of CT (myocardial infarction) (~2002) History of pleural effusion (~09/2019) Hypertension Hypothyroidism Malignant neoplasm of lower lobe, left bronchus or lung (~01/2021) Osteoporosis Personal history of nicotine dependence Pleural effusion Pneumonia Pulmonary nodules Surgical History History of basal cell carcinoma excision (~04/02/98) History of cardioversion (~12/07/19) History of heart artery stent History of lung surgery (~01/22/21) Family History Family History (Updated 05/22/21 @ 11:26 by Spike Whiting MD) Mother CAD (coronary artery disease) Social History Social History Household Members: None Housing: House Do you presently have visiting nurse or other home services: No Alcohol intake: unknown Patient Tobacco Use Status: Former Tobacco user Use of substances other than those prescribed or required for medical reasons: Unknown Advance Directives: No Advance Directives Information Provided: No service: No Current occupational status: retired Physical Exam Vital Signs: Vital Signs: Last Vital Signs Temp 97.7 F 06/14/21 18:44 Pulse 81 06/14/21 18:44 Resp 16 10/01/21 18:44 BP 121/63 06/14/21 18:44 Pulse Ox 94 06/14/21 18:44 Body Mass Index 26.9 Appearance: Alert. Oriented X3. No acute distress. Eyes: Pupils equal, round and reactive to light. ENT: Pharynx normal. Neck: Normal inspection. Neck supple. No lymph nodes noted. No crepitus CVS: Normal heart rate and rhythm. Pulses normal. Normal S1 and S2 Respiratory: No respiratory distress. Breath sounds normal. No Wheezing. No rales Abdomen: Soft and nontender. No rigidity. No distention. good BS x4 Skin: Skin warm and dry. Normal skin color. Normal skin turgor. Extremities: No lower extremity edema. Neurovascular intact to all extremities. No Lacerations. No Rash Neuro: Oriented X 3. No motor deficit. No sensory deficit. Moving all extermities. No slurred speech MDM - SOB/Dyspnea MDM Narrative Medical decision making narrative: Positive large pleural effusion on left side. Likely the cause of patient's shortness of breath. Patient's BnP is less than 200. Less likely be the cause considering x-ray also showed no evidence for CHF. Patient's case discussed with her. Will admit for further evaluation possibly a PleurX catheter. In stable condition. Patient's EKG showed a atrial fibrillation pattern heart rate is approximately 100 QRS is normal there is T- wave inversion over the lateral leads. Patient is to be admitted for further evaluation Differential Diagnosis Differential diagnosis: Likely acute exacerbation of chronic obstructive airways disease, congestive heart failure, pneumonia, asthma with exacerbation, pulmonary embolism, pleural effusion, sleep apnea and anemia Medical Records Attestation: I reviewed the patient's medical records. Lab Data Attestation: I reviewed the patient's lab results. Result diagrams: 06/14/21 17:50 06/14/21 18:41 Labs: Lab Results 06/14/21 06/14/21 06/14/21 Range/Units 17:50 17:50 18:41 WBC 2.7 L (4.8-10.8) X10*3/uL RBC 3.98 L (4.20-5.50) X10*6/uL Hgb 12.4 (12.0-16.0) g/dl Hct 36.2 L (37-47) % MCV 91.0 (80-98) fL MCH 31.2 (27.0-33.0) pg MCHC 34.3 (31.0-35.0) g/dl RDW 16.9 H (11.0-16.0) % Plt Count 206 D (160-400) X10*3/uL MPV 9.9 (9.4-12.3) fL Immature Gran % (Auto) 0.4 (0.0-0.4) % Neut % (Auto) 59.5 (45-73) % Lymph % (Auto) 33.7 (20-40) % [place] % (Auto) 5.6 (2-11) % Eos % (Auto) 0.4 (0-4) % Baso % (Auto) 0.4 (0-2) % Lymph # (Auto) 0.9 L (1.2-4.9) X10*3/uL [place] # (Auto) 0.2 (0.1-1.2) X10*3/uL Eos # (Auto) 0.0 (0.0-0.4) X10*3/uL Baso # (Auto) 0.0 (0.0-0.2) X10*3/uL Abs Immat Gran (auto) 0.01 (0.00-0.03) X10*3/uL Absolute Neuts (auto) 1.6 L (2.0-8.3) X10*3/uL Absolute Nucleated RBC 0.000 (0.0-0.012) X10*3/uL Nucleated RBC % (auto) 0.0 (0.0-0.2) /100WBC Sodium 138 (135-145) mmol/L Potassium 3.6 (3.3-5.1) mmol/L Chloride 101 (96-108) mmol/L Carbon Dioxide 24 (22-29) mmol/L Anion Gap 17 (12-20) BUN 26 H (9-16) mg/dL Creatinine 0.89 (0.5-1.4) mg/dL Estim Creat Clear Calc 53.1 Estimated GFR > 60 Random Glucose 95 (60-115) mg/dL Calcium 8.3 L (8.4-10.2) mg/dL Troponin I High Sens 42.9 H* (<3.5-17.0) ng/L B-Natriuretic Peptide 188 H (<100) pg/mL Digoxin (0.8-2.0) ng/mL 06/14/21 Range/Units 18:41 WBC (4.8-10.8) X10*3/uL RBC (4.20-5.50) X10*6/uL Hgb (12.0-16.0) g/dl Hct (37-47) % MCV (80-98) fL MCH (27.0-33.0) pg MCHC (31.0-35.0) g/dl RDW (11.0-16.0) % Plt Count (160-400) X10*3/uL MPV (9.4-12.3) fL Immature Gran % (Auto) (0.0-0.4) % Neut % (Auto) (45-73) % Lymph % (Auto) (20-40) % [place] % (Auto) (2-11) % Eos % (Auto) (0-4) % Baso % (Auto) (0-2) % Lymph # (Auto) (1.2-4.9) X10*3/uL [place] # (Auto) (0.1-1.2) X10*3/uL Eos # (Auto) (0.0-0.4) X10*3/uL Baso # (Auto) (0.0-0.2) X10*3/uL Abs Immat Gran (auto) (0.00-0.03) X10*3/uL Absolute Neuts (auto) (2.0-8.3) X10*3/uL Absolute Nucleated RBC (0.0-0.012) X10*3/uL Nucleated RBC % (auto) (0.0-0.2) /100WBC Sodium (135-145) mmol/L Potassium (3.3-5.1) mmol/L Chloride (96-108) mmol/L Carbon Dioxide (22-29) mmol/L Anion Gap (12-20) BUN (9-16) mg/dL Creatinine (0.5-1.4) mg/dL Estim Creat Clear Calc Estimated GFR Random Glucose (60-115) mg/dL Calcium (8.4-10.2) mg/dL Troponin I High Sens (<3.5-17.0) ng/L B-Natriuretic Peptide (<100) pg/mL Digoxin 0.8 (0.8-2.0) ng/mL Discharge Plan Discharge Clinical Impression: Pleural effusion Prescriptions: No Action folic acid 1 mg Tablet 1 mg PO DAILY Qty: 90 RF: 4 metoprolol succinate 50 mg tablet extended release 24 hr 1 tab PO DAILY RF: 0 ProAir RespiClick 90 mcg/actuation aerosol powdr breath activated 2 puff PO Q4H RF: 0 diltiazem HCl [DILT-XR] 120 mg capsule,ext.rel 24h degradable 120 mg PO DAILY RF: 0 digoxin 125 mcg (0.125 mg) Tablet 0.125 mg PO DAILY Qty: 30 RF: 0 Eliquis 5 mg tablet 5 mg PO BID RF: 0 rosuvastatin 20 mg tablet 20 mg PO DAILY RF: 0 aspirin 81 mg tablet,delayed release (DR/EC) 81 mg PO DAILY RF: 0 furosemide 40 mg tablet 80 mg PO DAILY RF: 0 levothyroxine 112 mcg tablet 112 mcg PO DAILY RF: 0 diltiazem HCl 240 mg capsule,ext.rel 24h degradable 240 mg PO BEDTIME RF: 0 Centrum Silver 0.4-300-250 mg-mcg-mcg tablet 1 tab PO DAILY RF: 0
[2021-06-14 17:55] LABS: MANUAL DIFF FLAG NO
[2021-06-14 17:58] LABS: Basophils Percent Auto 0.4 % (0-2); Eosinophils Percent Auto 0.4 % (0-4); Hematocrit 36.2 % (37-47); Hemoglobin 12.4 g/dl (12.0-16.0); Imm Gran Abs Auto 0.01 X10*3/uL (0.00-0.03); Imm Gran Pct Auto 0.4 % (0.0-0.4); Lymphocytes Absolute Auto 0.9 X10*3/uL (1.2-4.9); Lymphocytes Percent Auto 33.7 % (20-40); Mean Corpuscular HGB Conc 34.3 g/dl (31.0-35.0); Mean Corpuscular Hemoglobin 31.2 pg (27.0-33.0); Mean Platelet Volume 9.9 fL (9.4-12.3); Monocytes Absolute Auto 0.2 X10*3/uL (0.1-1.2); Monocytes Percent Auto 5.6 % (2-11); Neutrophils Absolute Auto 1.6 X10*3/uL (2.0-8.3); Neutrophils Percent Auto 59.5 % (45-73); Platelet Count 206 X10*3/uL (160-400); Red Blood Count 3.98 X10*6/uL (4.20-5.50); Red Cell Distribution Width 16.9 % (11.0-16.0); White Blood Count 2.7 X10*3/uL (4.8-10.8)
[2021-06-14 18:28] LABS: B Type Natriuretic Peptide 188 pg/mL (<100); Troponin-I High Sensitivity 42.9 ng/L (<3.5-17.0)
[2021-06-14 18:44] VITALS: BP 121/63; PULSE 81; RESP 16; TEMP 36.5; O2SAT 94
[2021-06-14 19:01] LABS: Anion Gap 17 (12-20); Blood Urea Nitrogen 26 mg/dL (9-16); Calcium 8.3 mg/dL (8.4-10.2); Carbon Dioxide 24 mmol/L (22-29); Chloride 101 mmol/L (96-108); Creatinine Clr Calc Pharmacy 53.1; Estimated Glomerular Filt Rate > 60; Glucose Random 95 mg/dL (60-115); Potassium 3.6 mmol/L (3.3-5.1); Sodium 138 mmol/L (135-145)
[2021-06-14 19:19] LABS: Digoxin 0.8 ng/mL (0.8-2.0)
[2021-06-14 20:00] VITALS: BP 118/59; PULSE 79; RESP 16; TEMP 36.1; O2SAT 96
--- NOTE | 2021-06-14 20:21 | PC.NURSE ---
PATIENT ATE 100 % OF DINNER.
--- NOTE | 2021-06-14 20:59 | PHA.MEDREC ---
Pharmacy Consult ? Medication Reconciliation Pharmacy has completed the medication reconciliation. Spoke with patient in ED. Pt will bring in own Rosuvastatin, pt unable to tolerate lipitor.
[2021-06-14 21:00] LABS: COVID-19 Test Negative (Negative)
--- NOTE | 2021-06-14 21:30 | PM.IMHP ---
History of Present Illness Date of Service: 06/14/21 75-year-old female with recurring stage IV lung cancer, status post left lower lobe wedge resection with a positive lymph node, and started chemotherapy on May 17. She has chronic AFIB and is on eliquis for stroke prevention. She she was recently admitted to hospital from May 21 through with a presentation of shortness of breath another time was diagnosed with new onset of CHF and malignant pleural effusion, she had 2.2 L of a thoracentesis on May 23. She was seen in follow-up at the pulmonology Clinic by Dr. Moise yesterday and HX x-ray added time was done and was noted to have a pleural effusion. She was instructed that if she continued to have increasing shortness of breath a to present to the emergency room to be evaluated. Patient presented emergency room today because of increasing shortness of breath especially with exertion she has no fever no cough. Checks x-ray today like yesterday shows a left-sided pleural effusion. She has significant leg edema. Her BNP is only 188 which is much lower compared to previous 1. Troponin I level is 42.9 which is slightly higher compared to that of yesterday. COVID-19 test is negative. Review of Systems Review of Systems: Gen: no fever Resp: + sob, no cough CV: no chest, + [place], + leg edema GI: No n/v, no abd pain Neuro: No confusion Yes all other systems are reviewed and are negative [facility] Medical History Adenocarcinoma of left lung, stage 4 (~01/2021) Adenocarcinoma of left lung, stage 4 Atrial fibrillation (~09/2019) Back pain CAD (coronary artery disease) CHF (congestive heart failure) COPD (chronic obstructive pulmonary disease) Heart failure History of [place] (myocardial infarction) (~2002) History of pleural effusion (~09/2019) Hypertension Hypothyroidism Malignant neoplasm of lower lobe, left bronchus or lung (~01/2021) Osteoporosis Personal history of nicotine dependence Pleural effusion Pneumonia Pulmonary nodules Family History Mother CAD (coronary artery disease) Pertinent family history: . Surgical History History of basal cell carcinoma excision (~04/02/98) History of cardioversion (~12/07/19) History of heart artery stent History of lung surgery (~01/22/21) Social History Household Members: None Housing: House Do you presently have visiting nurse or other home services: No Alcohol intake: unknown Patient Tobacco Use Status: Former Tobacco user Use of substances other than those prescribed or required for medical reasons: Unknown Advance Directives: No Advance Directives Information Provided: No service: No Current occupational status: retired Meds Allergies Allergy/AdvReac Type Severity Reaction Status Date / Time codeine [CODEINE] Allergy Severe SEVERE Verified 06/13/21 15:02 HEADACHE latex [LATEX] Allergy Intermediate RASH/HIVES Verified 06/13/21 15:02 atorvastatin [From Lipitor] AdvReac Muscle Pain Verified 06/14/21 20:59 Active Medications: Current Medications Pharmacy Consult (Consult Rx Perform Med Rec) 1 each MISCELLANE ONCE PRN PRN Reason: Consult order Home Medications Medication Instructions Recorded Confirmed Last Taken Type apixaban 5 mg tablet (Eliquis) 5 mg PO BID 11/30/20 06/14/21 06/14/21 History aspirin 81 mg tablet,delayed 81 mg PO DAILY 11/30/20 06/14/21 06/14/21 History release rosuvastatin 20 mg tablet 20 mg PO DAILY 11/30/20 06/14/21 06/14/21 History diltiazem HCl 240 mg 240 mg PO BEDTIME 02/08/21 06/14/21 06/13/21 History capsule,extended release 24 hr, controlled levothyroxine 112 mcg tablet 112 mcg PO DAILY@0630 02/08/21 06/14/21 06/14/21 History revxeerk-byl-soorh acid 0.4 1 tab PO DAILY 02/08/21 06/14/21 06/14/21 History mg-lycopene 300 mcg-lutein 250 mcg tablet (Centrum Silver) albuterol sulfate 90 mcg/actuation 2 puff PO Q4H PRN 05/21/21 06/14/21 Unknown History breath activated powder inhaler (ProAir RespiClick) diltiazem HCl 120 mg 120 mg PO DAILY 05/21/21 06/14/21 06/14/21 History capsule,extended release 24 hr, controlled (DILT-XR) metoprolol succinate 50 mg 1 tab PO DAILY 05/21/21 06/14/21 06/14/21 History tablet,extended release 24 hr furosemide 40 mg tablet 80 mg PO DAILY 06/13/21 06/14/21 06/14/21 History Physical Exam Vital Signs and Narrative: Vital Signs: Last Vital Signs Temp 96.9 F 06/14/21 20:00 Pulse 79 06/14/21 20:00 Resp 16 06/14/21 20:00 BP 118/59 L 06/14/21 20:00 Pulse Ox 96 06/14/21 20:00 Body Mass Index 26.9 GENERAL:? The patient appears short of breath, in mild respiratory distress. VITAL SIGNS:? as above is afebrile with O2 sat of 96% on 2 L. HEENT:? Pupils are equal, round, and reactive to light and accommodation. NECK:? Supple.? No JVD. LUNGS:? Diminished breath sounds at left base.? Right, clear to auscultation with few expiratory rhonchi. HEART:? Irregularly irregular. ABDOMEN:? Obese, soft, nontender.? Bowel sounds audible. EXTREMITIES:? Bilateral pitting edema extending from dorsum of foot to both calves. NEUROLOGIC:? Nonfocal. PSYCHIATRIC:? Appropriate affect. Results Labs CBC and Chem 7: 06/14/21 17:50 06/14/21 18:41 Labs: Laboratory Results - last 24 hr 06/14/21 06/14/21 06/14/21 17:50 17:50 18:41 MCV 91.0 MCH 31.2 MCHC 34.3 RDW 16.9 H Plt Count 206 D MPV 9.9 Immature Gran % (Auto) 0.4 Neut % (Auto) 59.5 Lymph % (Auto) 33.7 [place] % (Auto) 5.6 Eos % (Auto) 0.4 Baso % (Auto) 0.4 Lymph # (Auto) 0.9 L [place] # (Auto) 0.2 Eos # (Auto) 0.0 Baso # (Auto) 0.0 Abs Immat Gran (auto) 0.01 Absolute Neuts (auto) 1.6 L Absolute Nucleated RBC 0.000 Nucleated RBC % (auto) 0.0 Anion Gap 17 Estim Creat Clear Calc 53.1 Estimated GFR > 60 Random Glucose 95 Calcium 8.3 L Troponin I High Sens 42.9 H* B-Natriuretic Peptide 188 H Digoxin COVID-19 ([facility]ALDO) COVID-19 Clin Com 06/14/21 06/14/21 18:41 20:42 MCV MCH MCHC RDW Plt Count MPV Immature Gran % (Auto) Neut % (Auto) Lymph % (Auto) [place] % (Auto) Eos % (Auto) Baso % (Auto) Lymph # (Auto) [place] # (Auto) Eos # (Auto) Baso # (Auto) Abs Immat Gran (auto) Absolute Neuts (auto) Absolute Nucleated RBC Nucleated RBC % (auto) Anion Gap Estim Creat Clear Calc Estimated GFR Random Glucose Calcium Troponin I High Sens B-Natriuretic Peptide Digoxin 0.8 COVID-19 (RONALDO) Negative COVID-19 Clin Com See Note Imaging Radiologist's Impressions: Impressions Chest X-Ray 06/14/21 17:27 IMPRESSION: Stable examination with redemonstration of a left sided pleural effusion and reticulonodular opacities in both lungs. Assessment and Plan (1) CHF (congestive heart failure): Status: Acute (2) Adenocarcinoma of left lung, stage 4: Status: Acute (3) Pleural effusion: Status: Acute (4) Atrial fibrillation: Status: Acute 75-year-old female patient with recurrent stage IV lung cancer, currently receiving chemotherapy, presented with worsening shortness of breath, lower extremity edema and reacumulated pleural effusion. 1. Acute respiratory distress likely from mostly Pleural effusion, CHF and underlying lung cancer. -For Pleural Effusion, she will need thoracentesis but eliquis need to be on hold for 72 hours. -she may benefit from PleurX catheter -Treat with IV Lasix for heart failure and might also help with effusion ? 2. Atrial fibrillation rate is controlled on digoxin, diltiazem and metoprolol. Anticoagulation with Eliquis will be on hold as stated above. 3. Acute on chronic diastolic heart failure--IV Lasix and monitor BMP and BNP 4. Hypothyroidism--continue levothyroxine. 5. Hyperlipidemia --continue statin 6. Mild increase in troponin I, no chest pain, likely to effusion, heart failure--repeat Deep vein thrombosis prophylaxis.?? on compression boots. Hold Eliquis as stated Full code Quality Stroke Does the patient have a stroke diagnosis?: No VTE Prior VTE?: No VTE Risk Level:: Medical - moderate - high VTE Device Contraindication: N/A - Device Ordered VTE Drug Contraindication: Treatment Not Indicated
[2021-06-14 22:00] VITALS: BP 115/58; PULSE 79; RESP 20; TEMP 36.6; O2SAT 96
[2021-06-14 22:37] LABS: Troponin-I High Sensitivity 47.8 ng/L (<3.5-17.0)
--- NOTE | 2021-06-14 23:31 | PC.NURSE ---
pt is sleeping at this time with no sign of distress.
[2021-06-15] VITALS (7 sets, daily range): BP systolic 118–140; BP diastolic 44–74; PULSE 74–105; RESP 16–20; TEMP 36.3–36.9; O2SAT 91–95
[2021-06-15] MEDS: 0.9 % Sodium Chloride Flush 3 ML SYRINGE IVFLUSH ×3 (01:58→16:03)
--- NOTE | 2021-06-15 02:01 | PC.NURSE ---
pt is resting at this time, no sign of distress at this time. Warm blanket give at this time.
--- NOTE | 2021-06-15 03:27 | PC.NURSE ---
attempt to collect urine sample from patient ,patient stated does not feel like she has to void and does not want to be straight cath ,Rn aware
[2021-06-15 05:08] LABS: Appearance Urine CLEAR; Color Urine YELLOW; Glucose Urine UA NEG (NEG); Leukocyte Esterase Urine NEG (NEG); Nitrite Urine NEG (NEG); Specific Gravity - Urine 1.015 (1.005-1.025); Urine Blood NEG (NEG); Urine Ketones NEG (NEG); Urine Protein TRACE MG/DL (NEG-TRACE)
[2021-06-15 05:09] LABS: UACC Culture Trigger NO
--- NOTE | 2021-06-15 05:09 | PC.NURSE ---
pt resting in bed at this time.
--- NOTE | 2021-06-15 06:07 | PC.NURSE ---
pt sleeping most of the night with no sign of distress. pt oob to bathroom with assist . Ua collected and sent.
[2021-06-15] MEDS: dilTIAZem HCL CD 120 MG CAP.ER.DEG PO (07:49)
[2021-06-15] MEDS: Folic Acid 1 MG TABLET PO (07:49)
[2021-06-15] MEDS: Aspirin Enteric Coated 81 MG TABLET.DR PO (07:49)
[2021-06-15] MEDS: Levothyroxine Sodium 112 MCG TABLET PO (07:49)
[2021-06-15] MEDS: Multivitamin TABLET 1 TAB PO (07:50)
[2021-06-15] MEDS: Metoprolol Succinate ER 50 MG TAB.ER.24H PO (07:50)
[2021-06-15] MEDS: Digoxin 0.125 MG TABLET PO (07:50)
[2021-06-15] MEDS: Furosemide 20 MG/2 ML VIAL IVPUSH (08:35)
--- NOTE | 2021-06-15 10:50 | P.CONCA_ITS ---
History of Present Illness History of Present Illness Date of Service: 06/15/21 Chief complaint: heart failure, p.effusion Narrative: This is a cardiology consultation regarding suspected congestive heart failure. She has a history of recurrent lung cancer, stage IV adenocarcinoma per recent pulmonary note. Under review of his notes, it seems that she did have initial resection but had recurrence and when she back to the OR for back to ut she developed some ventricular arrhythmia of uncertain nature and hence surgery was not performed. Then referred to Oncology for palliative chemotherapy. She was recently hospitalized at that time, she had pleural effusion. She did undergo thoracentesis at that time. However, it seems that the fluid has reaccumulated and she is back in the hospital is shortness of breath. She also has some leg swelling bilaterally. With regard to cardiac issues, she has atrial fibrillation that is persistent. She also has remote history of coronary disease, status post stenting in 2002 and unknown anatomy. However, she does not have any anginal-type symptoms at this time. Review of Systems Review of Systems: Yes all other systems are reviewed and are negative Cardiovascular: Cardiovascular: Reports as per HPI, Reports no additional cardiovascular complaints, Denies acrocyanosis, Denies cool extremities, Denies painful fingertips, Denies chest pain, Denies chest pain at rest, Denies diaphoresis, Denies syncope, Denies irregular heart rhythm, Denies claudication, Reports leg edema, Denies lightheadedness, Denies palpitations and Reports dyspnea Respiratory: Respiratory: Reports dyspnea Neurologic: Denies syncope Endocrine: Endocrine: Denies palpitations PMFSH Past Medical History Medical History Adenocarcinoma of left lung, stage 4 (~01/2021) Adenocarcinoma of left lung, stage 4 Atrial fibrillation (~09/2019) Back pain CAD (coronary artery disease) CHF (congestive heart failure) COPD (chronic obstructive pulmonary disease) Heart failure History of [place] (myocardial infarction) (~2002) History of pleural effusion (~09/2019) Hypertension Hypothyroidism Malignant neoplasm of lower lobe, left bronchus or lung (~01/2021) Osteoporosis Personal history of nicotine dependence Pleural effusion Pneumonia Pulmonary nodules Family History Family History Mother CAD (coronary artery disease) Surgical History Surgical History History of basal cell carcinoma excision (~04/02/98) History of cardioversion (~12/07/19) History of heart artery stent History of lung surgery (~01/22/21) Social History Social History Household Members: None Housing: House Do you presently have visiting nurse or other home services: No Alcohol intake: unknown Patient Tobacco Use Status: Former Tobacco user Use of substances other than those prescribed or required for medical reasons: Unknown Advance Directives: No Advance Directives Information Provided: No service: No Current occupational status: retired Meds Allergies Allergy/AdvReac Type Severity Reaction Status Date / Time codeine [CODEINE] Allergy Severe SEVERE Verified 06/13/21 15:02 HEADACHE latex [LATEX] Allergy Intermediate RASH/HIVES Verified 06/13/21 15:02 atorvastatin [From Lipitor] AdvReac Muscle Pain Verified 06/14/21 20:59 Active Medications: Current Medications Acetaminophen (Acetaminophen 325 Mg Tablet) 650 mg PO Q6H PRN PRN Reason: Pain, Mild (Pain Scale 1-3) Al Hydroxide/Mg Hydroxide (Magnesium Hydrox/Alum Hydrox 30 Ml Oral.Susp) 30 ml PO Q4H PRN PRN Reason: Heartburn/Nausea Albuterol Sulfate (Albuterol Sulfate 90 Mcg 8 Gm Inhaler) 2 puff INHALE Q4H PRN PRN Reason: Shortness Of Breath Aspirin (Aspirin Enteric Coated 81 Mg Tablet.) 81 mg PO DAILY [facility] Last Admin: 06/15/21 07:49 Dose: 81 mg Documented by: Digoxin (Digoxin 0.125 Mg Tablet) 0.125 mg PO DAILY [facility] Last Admin: 06/15/21 07:50 Dose: 0.125 mg Documented by: Diltiazem HCl (Diltiazem Hcl Cd 120 Mg Cap.Er.Deg) 120 mg PO DAILY [facility]; Protocol Last Admin: 06/15/21 07:49 Dose: 120 mg Documented by: Diltiazem HCl (Diltiazem Hcl Cd 240 Mg Cap.Er.Deg) 240 mg PO BEDTIME [facility]; Protocol Folic Acid (Folic Acid 1 Mg Tablet) 1 mg PO DAILY [facility] Last Admin: 06/15/21 07:49 Dose: 1 mg Documented by: Furosemide (Furosemide 20 Mg/2 Ml Vial) 20 mg IVPUSH BID@0900,1800 [facility]; Protocol Last Admin: 06/15/21 08:35 Dose: 20 mg Documented by: Levothyroxine Sodium (Levothyroxine Sodium 112 Mcg Tablet) 112 mcg PO DA RAY@0630 [facility] Last Admin: 06/15/21 07:49 Dose: 112 mcg Documented by: Melatonin (Melatonin 3 Mg Tablet) 6 mg PO BEDTIME PRN PRN Reason: Insomnia Metoprolol Succinate (Metoprolol Succinate Er 50 Mg Tab.Er.24h) 50 mg PO DAILY [facility]; Protocol Last Admin: 06/15/21 07:50 Dose: 50 mg Documented by: Multivitamins/Vitamin C (Multivitamin Tablet) 1 tab PO DAILY [facility] Last Admin: 06/15/21 07:50 Dose: 1 tab Documented by: Non-Formulary Medication (Rosuvastatin) 20 mg PO DAILY [facility] Ondansetron HCl (Ondansetron Hcl 4 Mg/2 Ml Vial) 4 mg IVPUSH Q8H PRN PRN Reason: Nausea and Vomiting Pharmacy Consult (Consult Rx Perform Med Rec) 1 each MISCELLANE ONCE PRN PRN Reason: Consult order Sodium Chloride (0.9 % Sodium Chloride Flush 3 Ml Syringe) 3 ml IVFLUSH QSHIFT [facility] Last Admin: 06/15/21 07:49 Dose: 3 ml Documented by: Home Medications Medication Instructions Recorded Confirmed Last Taken Type apixaban 5 mg tablet (Eliquis) 5 mg PO BID 11/30/20 06/14/21 06/14/21 History aspirin 81 mg tablet,delayed 81 mg PO DAILY 11/30/20 06/14/21 06/14/21 History release rosuvastatin 20 mg tablet 20 mg PO DAILY 11/30/20 06/14/21 06/14/21 History diltiazem HCl 240 mg 240 mg PO BEDTIME 02/08/21 06/14/21 06/13/21 History capsule,extended release 24 hr, controlled levothyroxine 112 mcg tablet 112 mcg PO DAILY@0630 02/08/21 06/14/21 06/14/21 History uicoghpz-iil-wbwql acid 0.4 1 tab PO DAILY 02/08/21 06/14/21 06/14/21 History mg-lycopene 300 mcg-lutein 250 mcg tablet (Centrum Silver) albuterol sulfate 90 mcg/actuation 2 puff PO Q4H PRN 05/21/21 06/14/21 Unknown History breath activated powder inhaler (ProAir RespiClick) diltiazem HCl 120 mg 120 mg PO DAILY 05/21/21 06/14/21 06/14/21 History capsule,extended release 24 hr, controlled (DILT-XR) metoprolol succinate 50 mg 1 tab PO DAILY 05/21/21 06/14/21 06/14/21 History tablet,extended release 24 hr furosemide 40 mg tablet 80 mg PO DAILY 06/13/21 06/14/21 06/14/21 History Physical Exam Vital Signs: Vital Signs: Last Vital Signs Temp 98.0 F 06/15/21 06:00 Pulse 74 06/15/21 07:50 Resp 20 06/15/21 06:00 BP 118/60 06/15/21 07:50 Pulse Ox 95 06/15/21 06:00 Body Mass Index 26.9 Const: General: cooperative and no acute distress HENMT: Other: Unremarkable Neck: Neck: Yes normal visual inspection Chest: Chest palpation & inspection: normal inspection of the chest Resp: Other: decreased lung sounds left base Cardio: Jugular venous distension: no JVD Palpation: normal PMI Heart sounds: S1 normal heart sound present, S2 normal heart sound present, no gallops , no murmurs and no rubs GI: Palpation (GI): Soft to palpation Back/Spine/Pelvis: Other: unremarkable Skin: General skin exam: no rashes or lesions noted Neuro: Cranial nerves: Yes Other cranial nerve findings present Extrem: General: Yes pedal edema (1+) Psych: Mental Status: other Results Labs and Meds Result diagrams: 06/14/21 17:50 06/14/21 18:41 Lab results: Laboratory Results - last 24 hr 06/14/21 06/14/21 06/14/21 17:50 17:50 18:41 WBC 2.7 L RBC 3.98 L Hgb 12.4 Hct 36.2 L MCV 91.0 MCH 31.2 MCHC 34.3 RDW 16.9 H Plt Count 206 D MPV 9.9 Immature Gran % (Auto) 0.4 Neut % (Auto) 59.5 Lymph % (Auto) 33.7 [place] % (Auto) 5.6 Eos % (Auto) 0.4 Baso % (Auto) 0.4 Lymph # (Auto) 0.9 L [place] # (Auto) 0.2 Eos # (Auto) 0.0 Baso # (Auto) 0.0 Abs Immat Gran (auto) 0.01 Absolute Neuts (auto) 1.6 L Absolute Nucleated RBC 0.000 Nucleated RBC % (auto) 0.0 Sodium 138 Potassium 3.6 Chloride 101 Carbon Dioxide 24 Anion Gap 17 BUN 26 H Creatinine 0.89 Estim Creat Clear Calc 53.1 Estimated GFR > 60 Random Glucose 95 Calcium 8.3 L Troponin I High Sens 42.9 H* B-Natriuretic Peptide 188 H Urine Color Urine Appearance Urine pH Ur Specific [place] Urine Protein Urine Glucose (UA) Urine Ketones Urine Blood Urine Nitrite Ur Leukocyte Esterase Digoxin COVID-19 ([facility]ALDO) COVID-19 [employer] Com 06/14/21 06/14/21 06/14/21 18:41 20:42 22:04 WBC RBC Hgb Hct MCV MCH MCHC RDW Plt Count MPV Immature Gran % (Auto) Neut % (Auto) Lymph % (Auto) [place] % (Auto) Eos % (Auto) Baso % (Auto) Lymph # (Auto) [place] # (Auto) Eos # (Auto) Baso # (Auto) Abs Immat Gran (auto) Absolute Neuts (auto) Absolute Nucleated RBC Nucleated RBC % (auto) Sodium Potassium Chloride Carbon Dioxide Anion Gap BUN Creatinine Estim Creat Clear Calc Estimated GFR Random Glucose Calcium Troponin I High Sens 47.8 H* B-Natriuretic Peptide Urine Color Urine Appearance Urine pH Ur Specific [place] Urine Protein Urine Glucose (UA) Urine Ketones Urine Blood Urine Nitrite Ur Leukocyte Esterase Digoxin 0.8 COVID-19 ([facility]ALDO) Negative COVID-19 [employer] See Note 06/15/21 05:02 WBC RBC Hgb Hct MCV MCH MCHC RDW Plt Count MPV Immature Gran % (Auto) Neut % (Auto) Lymph % (Auto) [place] % (Auto) Eos % (Auto) Baso % (Auto) Lymph # (Auto) [place] # (Auto) Eos # (Auto) Baso # (Auto) Abs Immat Gran (auto) Absolute Neuts (auto) Absolute Nucleated RBC Nucleated RBC % (auto) Sodium Potassium Chloride Carbon Dioxide Anion Gap BUN Creatinine Estim Creat Clear Calc Estimated GFR Random Glucose Calcium Troponin I High Sens B-Natriuretic Peptide Urine Color YELLOW Urine Appearance CLEAR Urine pH 6.0 Ur Specific [place] 1.015 Urine Protein TRACE Urine Glucose (UA) NEG Urine Ketones NEG Urine Blood NEG Urine Nitrite NEG Ur Leukocyte Esterase NEG Digoxin COVID-19 ([facility]ALDO) COVID-19 Clin Com ECG Interpretation: EKG with atrial fibrillation, 91/Min; ST depression in the lateral leads that could be from digoxin effect. Ischemia is possible and cannot be excluded. This was seen in the last EKG but more pronounced at this time. Imaging Radiologist's impression: Impressions Chest X-Ray 06/14/21 17:27 IMPRESSION: Stable examination with redemonstration of a left sided pleural effusion and reticulonodular opacities in both lungs. Assessment and Plan (1) Acute on chronic diastolic (congestive) heart failure: Status: Acute (2) Persistent atrial fibrillation: Status: Acute (3) Elevated troponin: Status: Acute (4) Adenocarcinoma of left lung, stage 4: Status: Acute Pertinent studies reviewed. Hemoglobin is 12.4. White cells 2.7. Platelets 206. Potassium 3.6. Creatinine 0.89. High sensitive troponins are 31.9, 42.9, 47.8. Cardiac BNP is 257 and 188. Digoxin level 0.8. Chest x-ray reported to have left-sided pleural effusion and reticulonodular opacities in both lungs. Last echocardiogram from 3 weeks ago with LVEF 55-60%, basal inferior akinesis, severe left atrial dilatation. Overall, probably multifactorial etiology for her symptoms, pleural effusion and leg edema. Suspect pulmonary etiology is more likely but she could also have some diastolic heart failure +/-cor pulmonale. Per EKG from 2001, there is evidence of inferior STEMI which may be the etiology for her basal akinesis. Most likely coronary disease could have progressed since that time. However, with lung cancer diagnosis, not a candidate for any workup from this standpoint. Plan should be to diurese as tolerated by renal function. Need to discuss with Pulmonary about PleurX catheter discussed in office note from last time. Procedures Date of Service Date of Service: 06/15/21
--- NOTE | 2021-06-15 13:55 | PM.IMPN ---
Progress Note: A&P (1) Elevated troponin: Status: Acute (2) Acute on chronic diastolic (congestive) heart failure: Status: Acute (3) Pleural effusion: Status: Acute Assessment and Plan: 75-year-old female patient with recurrent? stage IV lung cancer, currently receiving chemotherapy, presented with worsening shortness of breath, lower extremity edema and reacumulated pleural effusion. Acute respiratory distress secondary to Pleural effusion, CHF and underlying lung cancer. No hypoxia noted Schedule thoracentesis willlikely need PleurX catheter, hold Eliquis increase IV Lasix to 40 BID cardiology following Chest CT ? Atrial fibrillation. rate is controlled continue digoxin, diltiazem and metoprolol.? Anticoagulation with Eliquis will be on hold as stated above. Hypothyroidism continue levothyroxine. Hyperlipidemia continue statin Mild increase in troponin I no chest pain, likely secondary to effusion, heart failure trend Deep vein thrombosis prophylaxis.?? on compression boots. Hold Eliquis as stated Full code Attending Dr. Quintero Subjective Subjective Date of Service: 06/15/21 Review of Systems Follow up SOB breathing has improved denies chest pain, nausea, vomiting Physical Exam Vital Signs: Vital Signs: Last Vital Signs Temp 98.0 F 06/15/21 06:00 Pulse 74 06/15/21 07:50 Resp 20 06/15/21 06:00 BP 118/60 06/15/21 07:50 Pulse Ox 95 06/15/21 06:00 Body Mass Index 26.9 Appearing in no acute distress lung sounds are clear to auscultation heart regular rate rhythm, clear S1, S2 positive bowel sounds, abdomen is soft, nontender neuro patient is alert x3, no focal deficits Objective Data Current Medications Acetaminophen (Acetaminophen 325 Mg Tablet) 650 mg PO Q6H PRN PRN Reason: Pain, Mild (Pain Scale 1-3) Al Hydroxide/Mg Hydroxide (Magnesium Hydrox/Alum Hydrox 30 Ml Oral.Susp) 30 ml PO Q4H PRN PRN Reason: Heartburn/Nausea Albuterol Sulfate (Albuterol Sulfate 90 Mcg 8 Gm Inhaler) 2 puff INHALE Q4H PRN PRN Reason: Shortness Of Breath Aspirin (Aspirin Enteric Coated 81 Mg Tablet.) 81 mg PO DAILY [facility] Last Admin: 06/15/21 07:49 Dose: 81 mg Documented by: Digoxin (Digoxin 0.125 Mg Tablet) 0.125 mg PO DAILY [facility] Last Admin: 06/15/21 07:50 Dose: 0.125 mg Documented by: Diltiazem HCl (Diltiazem Hcl Cd 120 Mg Cap.Er.Deg) 120 mg PO DAILY [facility]; Protocol Last Admin: 06/15/21 07:49 Dose: 120 mg Documented by: Diltiazem HCl (Diltiazem Hcl Cd 240 Mg Cap.Er.Deg) 240 mg PO BEDTIME [facility]; Protocol Folic Acid (Folic Acid 1 Mg Tablet) 1 mg PO DAILY [facility] Last Admin: 06/15/21 07:49 Dose: 1 mg Documented by: Furosemide (Furosemide 20 Mg/2 Ml Vial) 40 mg IVPUSH BID@0900,1800 [facility]; Protocol Levothyroxine Sodium (Levothyroxine Sodium 112 Mcg Tablet) 112 mcg PO DAILY@0630 [facility] Last Admin: 06/15/21 07:49 Dose: 112 mcg Documented by: Melatonin (Melatonin 3 Mg Tablet) 6 mg PO BEDTIME PRN PRN Reason: Insomnia Metoprolol Succinate (Metoprolol Succinate Er 50 Mg Tab.Er.24h) 50 mg PO DAILY [facility]; Protocol Last Admin: 06/15/21 07:50 Dose: 50 mg Documented by: Multivitamins/Vitamin C (Multivitamin Tablet) 1 tab PO DAILY [facility] Last Admin: 06/15/21 07:50 Dose: 1 tab Documented by: Non-Formulary Medication (Rosuvastatin) 20 mg PO DAILY [facility] Ondansetron HCl (Ondansetron Hcl 4 Mg/2 Ml Vial) 4 mg IVPUSH Q8H PRN PRN Reason: Nausea and Vomiting Pharmacy Consult (Consult Rx Perform Med Rec) 1 each MISCELLANE ONCE PRN PRN Reason: Consult order Sodium Chloride (0.9 % Sodium Chloride Flush 3 Ml Syringe) 3 ml IVFLUSH QSHIFT [facility] Last Admin: 06/15/21 07:49 Dose: 3 ml Documented by: Labs CBC & Chem 7: 06/14/21 17:50 06/14/21 18:41 Labs: Laboratory Results - last 24 hr 06/14/21 06/14/21 06/14/21 17:50 17:50 18:41 MCV 91.0 MCH 31.2 MCHC 34.3 RDW 16.9 H Plt Count 206 D MPV 9.9 Immature Gran % (Auto) 0.4 Neut % (Auto) 59.5 Lymph % (Auto) 33.7 [place] % (Auto) 5.6 Eos % (Auto) 0.4 Baso % (Auto) 0.4 Lymph # (Auto) 0.9 L [place] # (Auto) 0.2 Eos # (Auto) 0.0 Baso # (Auto) 0.0 Abs Immat Gran (auto) 0.01 Absolute Neuts (auto) 1.6 L Absolute Nucleated RBC 0.000 Nucleated RBC % (auto) 0.0 Anion Gap 17 Estim Creat Clear Calc 53.1 Estimated GFR > 60 Random Glucose 95 Calcium 8.3 L Troponin I High Sens 42.9 H* B-Natriuretic Peptide 188 H Urine Color Urine Appearance Urine pH Ur Specific [place] Urine Protein Urine Glucose (UA) Urine Ketones Urine Blood Urine Nitrite Ur Leukocyte Esterase Digoxin COVID-19 ([facility]) COVID-19 Clin Com 06/14/21 06/14/21 06/14/21 18:41 20:42 22:04 MCV MCH MCHC RDW Plt Count MPV Immature Gran % (Auto) Neut % (Auto) Lymph % (Auto) [place] % (Auto) Eos % (Auto) Baso % (Auto) Lymph # (Auto) [place] # (Auto) Eos # (Auto) Baso # (Auto) Abs Immat Gran (auto) Absolute Neuts (auto) Absolute Nucleated RBC Nucleated RBC % (auto) Anion Gap Estim Creat Clear Calc Estimated GFR Random Glucose Calcium Troponin I High Sens 47.8 H* B-Natriuretic Peptide Urine Color Urine Appearance Urine pH Ur Specific [place] Urine Protein Urine Glucose (UA) Urine Ketones Urine Blood Urine Nitrite Ur Leukocyte Esterase Digoxin 0.8 COVID-19 ([facility]) Negative COVID-19 Clin Com See Note 06/15/21 05:02 MCV MCH MCHC RDW Plt Count MPV Immature Gran % (Auto) Neut % (Auto) Lymph % (Auto) [place] % (Auto) Eos % (Auto) Baso % (Auto) Lymph # (Auto) [place] # (Auto) Eos # (Auto) Baso # (Auto) Abs Immat Gran (auto) Absolute Neuts (auto) Absolute Nucleated RBC Nucleated RBC % (auto) Anion Gap Estim Creat Clear Calc Estimated GFR Random Glucose Calcium Troponin I High Sens B-Natriuretic Peptide Urine Color YELLOW Urine Appearance CLEAR Urine pH 6.0 Ur Specific [place] 1.015 Urine Protein TRACE Urine Glucose (UA) NEG Urine Ketones NEG Urine Blood NEG Urine Nitrite NEG Ur Leukocyte Esterase NEG Digoxin COVID-19 ([facility]) COVID-19 Clin Com Quality Stroke Does the patient have a stroke diagnosis?: No VTE Prior VTE?: No VTE Risk Level:: Medical - moderate - high VTE Device Contraindication: N/A - Device Ordered VTE Drug Contraindication: Treatment Not Indicated
--- NOTE | 2021-06-15 14:29 | PC.NURSE ---
report given to cody cuenca
[2021-06-15] MEDS: Furosemide 20 MG/2 ML VIAL 40 MG IVPUSH (16:03)
[2021-06-15] MEDS: Acetaminophen 325 MG TABLET 650 MG PO (16:03)
[2021-06-15] MEDS: dilTIAZem HCL CD 240 MG CAP.ER.DEG PO (20:50)
[2021-06-16] VITALS (8 sets, daily range): BP systolic 107–130; BP diastolic 49–68; PULSE 65–114; RESP 16–20; TEMP 36.3–36.6; O2SAT 90–99
[2021-06-16] MEDS: 0.9 % Sodium Chloride Flush 3 ML SYRINGE IVFLUSH ×4 (00:35→21:28)
[2021-06-16] MEDS: Multivitamin TABLET 1 TAB PO (09:16)
[2021-06-16] MEDS: Aspirin Enteric Coated 81 MG TABLET.DR PO (09:16)
[2021-06-16] MEDS: Folic Acid 1 MG TABLET PO (09:16)
[2021-06-16] MEDS: Furosemide 20 MG/2 ML VIAL 40 MG IVPUSH ×2 (09:16→16:21)
[2021-06-16] MEDS: Digoxin 0.125 MG TABLET PO (09:16)
[2021-06-16] MEDS: dilTIAZem HCL CD 120 MG CAP.ER.DEG PO (09:17)
[2021-06-16] MEDS: Metoprolol Succinate ER 50 MG TAB.ER.24H PO (09:17)
--- NOTE | 2021-06-16 11:33 | P.PNIM_ITS ---
Progress Note: A&P (1) Acute on chronic diastolic (congestive) heart failure: Status: Acute (2) Pleural effusion: Status: Acute (3) Atrial fibrillation: Status: Acute Assessment and Plan: 75-year-old female patient with recurrent? stage IV lung cancer, currently receiving chemotherapy, presented with worsening shortness of breath, lower extremity edema and reacumulated pleural effusion. Acute respiratory distress secondary to Pleural effusion, CHF and underlying lung cancer. No hypoxia noted Scheduled thoracentesis, will likely need?PleurX catheter, hold Eliquis increase? IV Lasix to 40 BID cardiology following Chest CT ? Atrial fibrillation. rate is controlled continue digoxin, diltiazem and metoprolol.? Anticoagulation with Eliquis will be on hold as stated above. Hypothyroidism continue levothyroxine. Hyperlipidemia continue statin Mild increase in troponin I no chest pain, likely secondary to effusion, heart failure trend Deep vein thrombosis prophylaxis.?? on compression boots. Hold Eliquis as stated Full code Attending Dr. Quintero Subjective Subjective Date of Service: 06/16/21 Review of Systems Follow up CHF Still sob especially with ambulation Denies chest pain, nausea, vomiting, diarrhea All other systems are reviewed and are negative Physical Exam Vital Signs: Vital Signs: Last Vital Signs Temp 97.8 F 06/16/21 08:00 Pulse 114 H 06/16/21 09:17 Resp 18 06/16/21 08:00 BP 119/49 L 06/16/21 09:17 Pulse Ox 95 06/16/21 08:00 Body Mass Index 26.9 Appearing in no acute distress lung sounds are clear to auscultation heart regular rate rhythm, clear S1, S2 positive bowel sounds, abdomen is soft, nontender neuro patient is alert x3, no focal deficits Objective Data Current Medications Acetaminophen (Acetaminophen 325 Mg Tablet) 650 mg PO Q6H PRN PRN Reason: Pain, Mild (Pain Scale 1-3) Last Admin: 06/15/21 16:03 Dose: 650 mg Documented by: Al Hydroxide/Mg Hydroxide (Magnesium Hydrox/Alum Hydrox 30 Ml Oral.Susp) 30 ml PO Q4H PRN PRN Reason: Heartburn/Nausea Albuterol Sulfate (Albuterol Sulfate 90 Mcg 8 Gm Inhaler) 2 puff INHALE Q4H PRN PRN Reason: Shortness Of Breath Aspirin (Aspirin Enteric Coated 81 Mg Tablet.) 81 mg PO DAILY [facility] Last Admin: 06/16/21 09:16 Dose: 81 mg Documented by: Digoxin (Digoxin 0.125 Mg Tablet) 0.125 mg PO DAILY [facility] Last Admin: 06/16/21 09:16 Dose: 0.125 mg Documented by: Diltiazem HCl (Diltiazem Hcl Cd 120 Mg Cap.Er.Deg) 120 mg PO DAILY [facility]; Protocol Last Admin: 06/16/21 09:17 Dose: 120 mg Documented by: Diltiazem HCl (Diltiazem Hcl Cd 240 Mg Cap.Er.Deg) 240 mg PO BEDTIME [facility]; Protocol Last Admin: 06/15/21 20:50 Dose: 240 mg Documented by: Folic Acid (Folic Acid 1 Mg Tablet) 1 mg PO DAILY [facility] Last Admin: 06/16/21 09:16 Dose: 1 mg Documented by: Furosemide (Furosemide 20 Mg/2 Ml Vial) 40 mg IVPUSH BID@0900,1800 [facility]; Protocol Last Admin: 06/16/21 09:16 Dose: 40 mg Documented by: Levothyroxine Sodium (Levothyroxine Sodium 112 Mcg Tablet) 112 mcg PO DAILY@0630 [facility] Last Admin: 06/15/21 07:49 Dose: 112 mcg Documented by: Melatonin (Melatonin 3 Mg Tablet) 6 mg PO BEDTIME PRN PRN Reason: Insomnia Metoprolol Succinate (Metoprolol Succinate Er 50 Mg Tab.Er.24h) 50 mg PO DAILY [facility]; Protocol Last Admin: 06/16/21 09:17 Dose: 50 mg Documented by: Multivitamins/Vitamin C (Multivitamin Tablet) 1 tab PO DAILY [facility] Last Admin: 06/16/21 09:16 Dose: 1 tab Documented by: Non-Formulary Medication (Rosuvastatin) 20 mg PO DAILY [facility] Ondansetron HCl (Ondansetron Hcl 4 Mg/2 Ml Vial) 4 mg IVPUSH Q8H PRN PRN Reason: Nausea and Vomiting Pharmacy Consult (Consult Rx Perform Med Rec) 1 each MISCELLANE ONCE PRN PRN Reason: Consult order Sodium Chloride (0.9 % Sodium Chloride Flush 3 Ml Syringe) 3 ml IVFLUSH QSHIFT [facility] Last Admin: 06/16/21 09:15 Dose: 3 ml Documented by: Labs CBC & Chem 7: 06/14/21 17:50 06/14/21 18:41 Quality Stroke Does the patient have a stroke diagnosis?: No VTE Prior VTE?: No VTE Risk Level:: Medical - moderate - high VTE Device Contraindication: N/A - Device Ordered VTE Drug Contraindication: Treatment Not Indicated
--- NOTE | 2021-06-16 11:46 | MHC.CM.PN ---
met with pt who lives alone is independent and driving she does does not anticipate a need for services when dcd hcp filed and placed on chart
--- NOTE | 2021-06-16 12:30 | P.PNCA_ITS ---
Subjective Subjective Date of Service: 06/16/21 Interval history: Feels slightly better. Review of Systems Review of Systems Yes all other systems are reviewed and are negative Cardiovascular: Reports as per HPI, Reports no additional cardiovascular complaints, Denies acrocyanosis, Denies cool extremities, Denies painful fingertips, Denies chest pain, Denies chest pain at rest, Denies diaphoresis, D enies syncope, Denies irregular heart rhythm, Denies claudication, Reports leg edema, Denies lightheadedness, Denies palpitations and Reports dyspnea Respiratory: Reports dyspnea Denies syncope Endocrine: Denies palpitations Physical Exam Vital Signs: Last Vital Signs Temp 97.7 F 06/16/21 11:57 Pulse 65 06/16/21 11:57 Resp 18 06/16/21 11:57 BP 130/67 06/16/21 11:57 Pulse Ox 99 06/16/21 11:57 Body Mass Index 26.9 Const General: cooperative and no acute distress HENMT Other: Unremarkable Neck Neck: Yes normal visual inspection Chest Chest palpation & inspection: normal inspection of the chest Resp Other: decreased lung sounds left base Cardio Jugular venous distension: no JVD Palpation: normal PMI Heart sounds: S1 normal heart sound present, S2 normal heart sound present, no gallops, no murmurs and no rubs GI Palpation (GI): Soft to palpation Back/Spine/Pelvis Other: unremarkable Skin General skin exam: no rashes or lesions noted Neuro Cranial nerves: Yes Other cranial nerve findings present Extrem General: Yes pedal edema (1+) Psych Mental Status: other Results Labs and Meds Result diagrams: 06/14/21 17:50 06/14/21 18:41 Imaging Radiologist's impression: Impressions Chest CT 06/15/21 14:45 IMPRESSION: 1. Moderate left-sided pleural effusion, decreased in size when compared to the prior CT. Complete collapse of the left upper lobe is redemonstrated. Adjacent atelectasis versus infiltrates in the left lower lobe are unchanged. No new large, confluent airspace consolidation. 2. Diffuse interstitial prominence and nodularity redemonstrated within the right lung, slightly increased in prominence when compared to the prior examination. 3. Enlarged superior mediastinal lymph nodes, similar when compared to the prior CT. Progress Note: A&P Assessment and plan (1) Acute on chronic diastolic (congestive) heart failure: Status: Acute (2) Persistent atrial fibrillation: Status: Acute (3) Elevated troponin: Status: Acute (4) Adenocarcinoma of left lung, stage 4: Status: Acute Assessment and Plan: Pertinent studies reviewed. High sensitive troponins are 31.9, 42.9, 47.8. Cardiac BNP is 257 and 188. Digoxin level 0.8. Chest x-ray reported to have left-sided pleural effusion and reticulonodular opacities in both lungs. CT chest findings also noted. Last echocardiogram from 3 weeks ago with LVEF 55-60%, basal inferior akinesis, severe left atrial dilatation. Overall, probably multifactorial etiology for her symptoms, pleural effusion and leg edema. Suspect pulmonary etiology is more likely but she could also have some diastolic heart failure +/-cor pulmonale. Per EKG from 2001, there is evidence of inferior STEMI which may be the etiology for her basal akinesis. Most likely coronary disease could have progressed since that time. However, with lung cancer diagnosis, not a candidate for any workup from this standpoint. Plan should be to diurese as tolerated by renal function. Need to discuss with Pulmonary about PleurX catheter discussed in office note from last time. Fall Risk Details Current Medications: Current Medications Acetaminophen (Acetaminophen 325 Mg Tablet) 650 mg PO Q6H PRN PRN Reason: Pain, Mild (Pain Scale 1-3) Last Admin: 06/15/21 16:03 Dose: 650 mg Documented by: Al Hydroxide/Mg Hydroxide (Magnesium Hydrox/Alum Hydrox 30 Ml Oral.Susp) 30 ml PO Q4H PRN PRN Reason: Heartburn/Nausea Albuterol Sulfate (Albuterol Sulfate 90 Mcg 8 Gm Inhaler) 2 puff INHALE Q4H PRN PRN Reason: Shortness Of Breath Aspirin (Aspirin Enteric Coated 81 Mg Tablet.) 81 mg PO DAILY [facility] Last Admin: 06/16/21 09:16 Dose: 81 mg Documented by: Digoxin (Digoxin 0.125 Mg Tablet) 0.125 mg PO DAILY [facility] Last Admin: 06/16/21 09:16 Dose: 0.125 mg Documented by: Diltiazem HCl (Diltiazem Hcl Cd 120 Mg Cap.Er.Deg) 120 mg PO DAILY [facility]; Protocol Last Admin: 06/16/21 09:17 Dose: 120 mg Documented by: Diltiazem HCl (Diltiazem Hcl Cd 240 Mg Cap.Er.Deg) 240 mg PO BEDTIME [facility]; Protocol Last Admin: 06/15/21 20:50 Dose: 240 mg Documented by: Folic Acid (Folic Acid 1 Mg Tablet) 1 mg PO DAILY [facility] Last Admin: 06/16/21 09:16 Dose: 1 mg Documented by: Furosemide (Furosemide 20 Mg/2 Ml Vial) 40 mg IVPUSH BID@0900,1800 [facility]; Protocol Last Admin: 06/16/21 09:16 Dose: 40 mg Documented by: Levothyroxine Sodium (Levothyroxine Sodium 112 Mcg Tablet) 112 mcg PO DAILY@0630 [facility] Last Admin: 06/15/21 07:49 Dose: 112 mcg Documented by: Melatonin (Melatonin 3 Mg Tablet) 6 mg PO BEDTIME PRN PRN Reason: Insomnia Metoprolol Succinate (Metoprolol Succinate Er 50 Mg Tab.Er.24h) 50 mg PO DAILY [facility]; Protocol Last Admin: 06/16/21 09:17 Dose: 50 mg Documented by: Multivitamins/Vitamin C (Multivitamin Tablet) 1 tab PO DAILY [facility] Last Admin: 06/16/21 09:16 Dose: 1 tab Documented by: Non-Formulary Medication (Rosuvastatin) 20 mg PO DAILY [facility] Ondansetron HCl (Ondansetron Hcl 4 Mg/2 Ml Vial) 4 mg IVPUSH Q8H PRN PRN Reason: Nausea and Vomiting Pharmacy Consult (Consult Rx Perform Med Rec) 1 each MISCELLANE ONCE PRN PRN Reason: Consult order Sodium Chloride (0.9 % Sodium Chloride Flush 3 Ml Syringe) 3 ml IVFLUSH QSHIFT [facility] Last Admin: 06/16/21 09:15 Dose: 3 ml Documented by: Time Spent With Patient Time: Total time spent is greater than 50% in coordination of care (as do cumented) at patient's floor/unit and/or counseling patient: Time with patient: less than 15 minutes Progress Note: Quality Stroke Does the patient have a stroke diagnosis?: No Procedures Date of Service Date of Service: 06/16/21
[2021-06-16] MEDS: Acetaminophen 325 MG TABLET 650 MG PO (16:24)
[2021-06-16] MEDS: dilTIAZem HCL CD 240 MG CAP.ER.DEG PO (21:28)
[2021-06-17] VITALS (9 sets, daily range): BP systolic 107–152; BP diastolic 52–77; PULSE 56–90; RESP 16–19; TEMP 36.1–36.7; O2SAT 93–98
[2021-06-17 06:11] LABS: Hematocrit 33.8 % (37-47); Hemoglobin 11.6 g/dl (12.0-16.0); Mean Corpuscular HGB Conc 34.3 g/dl (31.0-35.0); Mean Corpuscular Hemoglobin 30.7 pg (27.0-33.0); Mean Corpuscular Volume 89.4 fL (80-98); Mean Platelet Volume 9.8 fL (9.4-12.3); Platelet Count 114 X10*3/uL (160-400); Red Blood Count 3.78 X10*6/uL (4.20-5.50); Red Cell Distribution Width 15.9 % (11.0-16.0)
[2021-06-17 06:17] LABS: White Blood Count 2.5 X10*3/uL (4.8-10.8)
[2021-06-17] MEDS: Levothyroxine Sodium 112 MCG TABLET PO (06:19)
[2021-06-17 06:29] LABS: Anion Gap 15 (12-20); Blood Urea Nitrogen 22 mg/dL (9-16); Calcium 8.2 mg/dL (8.4-10.2); Carbon Dioxide 29 mmol/L (22-29); Chloride 98 mmol/L (96-108); Estimated Glomerular Filt Rate > 60; Glucose Random 117 mg/dL (60-115); Potassium 2.9 mmol/L (3.3-5.1); Sodium 139 mmol/L (135-145)
--- NOTE | 2021-06-17 08:01 | HE.PHANOTE ---
Spoke to FLORA Wise to see if she could ask the patients family to bring in her rosuvastatin in from home. Will follow up. Dania Anderson, PharmD [phone]
[2021-06-17] MEDS: Potassium Chloride ER 20 MEQ TAB.ER.PRT 60 MEQ PO (09:33)
[2021-06-17] MEDS: Metoprolol Succinate ER 50 MG TAB.ER.24H PO (09:34)
[2021-06-17] MEDS: 0.9 % Sodium Chloride Flush 3 ML SYRINGE IVFLUSH ×2 (09:34→18:21)
[2021-06-17] MEDS: Digoxin 0.125 MG TABLET PO (09:34)
[2021-06-17] MEDS: Folic Acid 1 MG TABLET PO (09:34)
[2021-06-17] MEDS: dilTIAZem HCL CD 120 MG CAP.ER.DEG PO (09:34)
[2021-06-17] MEDS: Furosemide 20 MG/2 ML VIAL 40 MG IVPUSH ×2 (09:35→18:16)
[2021-06-17] MEDS: Aspirin Enteric Coated 81 MG TABLET.DR PO (09:35)
[2021-06-17] MEDS: Multivitamin TABLET 1 TAB PO (09:35)
--- NOTE | 2021-06-17 09:40 | P.PNIM_ITS ---
Progress Note: A&P (1) Acute on chronic diastolic (congestive) heart failure: Status: Acute (2) Pleural effusion: Status: Acute Assessment and Plan: 75-year-old female patient with recurrent? stage IV lung cancer, currently receiving chemotherapy, presented with worsening shortness of breath, lower extremity edema and reacumulated pleural effusion. Acute respiratory distress secondary to Pleural effusion, CHF and underlying lung cancer. No hypoxia noted Scheduled? thoracentesis with PleurX catheter placement increase? IV Lasix to 40 BID cardiology following Chest CT ? Atrial fibrillation. rate is controlled continue digoxin, diltiazem and metoprolol.? Anticoagulation with Eliquis will be on hold as stated above. Hypothyroidism continue levothyroxine. Hyperlipidemia continue statin Mild increase in troponin I no chest pain, likely secondary to effusion, heart failure trend Deep vein thrombosis prophylaxis.?? on compression boots. Hold Eliquis as stated Full code Attending Dr. Barger Subjective Subjective Date of Service: 06/17/21 Review of Systems Follow up pleural effusion Still with some sob no chest pain, abd pain, nausea or vomiting Physical Exam Vital Signs: Vital Signs: Last Vital Signs Temp 97.6 F 06/17/21 07:42 Pulse 90 06/17/21 07:42 Resp 18 06/17/21 07:42 BP 119/65 06/17/21 07:42 Pulse Ox 95 06/17/21 07:42 Body Mass Index 26.9 Appearing in no acute distress lung sounds are clear to auscultation heart regular rate rhythm, clear S1, S2 positive bowel sounds, abdomen is soft, nontender neuro patient is alert x3, no focal deficits Objective Data Current Medications Acetaminophen (Acetaminophen 325 Mg Tablet) 650 mg PO Q6H PRN PRN Reason: Pain, Mild (Pain Scale 1-3) Last Admin: 06/16/21 16:24 Dose: 650 mg Documented by: Al Hydroxide/Mg Hydroxide (Magnesium Hydrox/Alum Hydrox 30 Ml Oral.Susp) 30 ml PO Q4H PRN PRN Reason: Heartburn/Nausea Albuterol Sulfate (Albuterol Sulfate 90 Mcg 8 Gm Inhaler) 2 puff INHALE Q4H PRN PRN Reason: Shortness Of Breath Aspirin (Aspirin Enteric Coated 81 Mg Tablet.) 81 mg PO DAILY [facility] Last Admin: 06/16/21 09:16 Dose: 81 mg Documented by: Digoxin (Digoxin 0.125 Mg Tablet) 0.125 mg PO DAILY [facility] Last Admin: 06/16/21 09:16 Dose: 0.125 mg Documented by: Diltiazem HCl (Diltiazem Hcl Cd 120 Mg Cap.Er.Deg) 120 mg PO DAILY [facility]; Protocol Last Admin: 06/16/21 09:17 Dose: 120 mg Documented by: Diltiazem HCl (Diltiazem Hcl Cd 240 Mg Cap.Er.Deg) 240 mg PO BEDTIME [facility]; Protocol Last Admin: 06/16/21 21:28 Dose: 240 mg Documented by: Folic Acid (Folic Acid 1 Mg Tablet) 1 mg PO DAILY [facility] Last Admin: 06/16/21 09:16 Dose: 1 mg Documented by: Furosemide (Furosemide 20 Mg/2 Ml Vial) 40 mg IVPUSH BID@0900,1800 [facility]; Protocol Last Admin: 06/16/21 16:21 Dose: 40 mg Documented by: Levothyroxine Sodium (Levothyroxine Sodium 112 Mcg Tablet) 112 mcg PO DAILY@0630 [facility] Last Admin: 06/17/21 06:19 Dose: 112 mcg Documented by: Melatonin (Melatonin 3 Mg Tablet) 6 mg PO BEDTIME PRN PRN Reason: Insomnia Metoprolol Succinate (Metoprolol Succinate Er 50 Mg Tab.Er.24h) 50 mg PO DAILY [facility]; Protocol Last Admin: 06/16/21 09:17 Dose: 50 mg Documented by: Multivitamins/Vitamin C (Multivitamin Tablet) 1 tab PO DAILY [facility] Last Admin: 06/16/21 09:16 Dose: 1 tab Documented by: Non-Formulary Medication (Rosuvastatin) 20 mg PO DAILY [facility] Ondansetron HCl (Ondansetron Hcl 4 Mg/2 Ml Vial) 4 mg IVPUSH Q8H PRN PRN Reason: Nausea and Vomiting Pharmacy Consult (Consult Rx Perform Med Rec) 1 each MISCELLANE ONCE PRN PRN Reason: Consult order Sodium Chloride (0.9 % Sodium Chloride Flush 3 Ml Syringe) 3 ml IVFLUSH QSHIFT [facility] Last Admin: 06/16/21 21:28 Dose: 3 ml Documented by: Labs CBC & Chem 7: 06/17/21 05:51 06/17/21 05:51 Labs: Laboratory Results - last 24 hr 06/17/21 06/17/21 05:51 05:51 MCV 89.4 MCH 30.7 MCHC 34.3 RDW 15.9 Plt Count 114 L D MPV 9.8 Absolute Nucleated RBC 0.000 Nucleated RBC % (auto) 0.0 Anion Gap 15 Estim Creat Clear Calc 57.0 Estimated GFR > 60 Random Glucose 117 H Calcium 8.2 L Quality Stroke Does the patient have a stroke diagnosis?: No VTE Prior VTE?: No VTE Risk Level:: Medical - moderate - high VTE Device Contraindication: N/A - Device Ordered VTE Drug Contraindication: Treatment Not Indicated
[2021-06-17 10:12] LABS: INTERNATIONAL NORM RATIO 1.1 (0.9-1.1)
--- NOTE | 2021-06-17 13:03 | MHC.CM.PN ---
Per ROUNDS discussion, Patient is getting a Thorocentesis today and not yet medically cleared for dc. Home is the goal for dc and CM will follow for possible need to adjust the dc plan.
--- NOTE | 2021-06-17 17:20 | HO.RADPN ---
RADIOLOGY Narrative Narrative: 15 fr left pleurex chest tube placed. 1L serosanguinous fluid removed. CXR pending.
[2021-06-17] MEDS: Lidocaine HCl 1 % MPF 5 ML VIAL 15 ML SUBCUT (17:30)
[2021-06-17] MEDS: Nystatin Oral Susp 500,000 UNIT/5 ML ORAL.SUSP 500000 UNIT PO ×2 (18:17→21:14)
[2021-06-17] MEDS: Acetaminophen 325 MG TABLET 650 MG PO (21:14)
[2021-06-17] MEDS: dilTIAZem HCL CD 240 MG CAP.ER.DEG PO (21:15)
[2021-06-18] MEDS: 0.9 % Sodium Chloride Flush 3 ML SYRINGE IVFLUSH ×2 (00:27→08:48)
[2021-06-18] MEDS: Levothyroxine Sodium 112 MCG TABLET PO (05:44)
[2021-06-18 05:46] VITALS: BP 131/63; PULSE 76; RESP 18; TEMP 37; O2SAT 95
[2021-06-18 06:56] LABS: Anion Gap 12 (12-20); Blood Urea Nitrogen 23 mg/dL (9-16); Calcium 7.8 mg/dL (8.4-10.2); Carbon Dioxide 31 mmol/L (22-29); Chloride 98 mmol/L (96-108); Creatinine Clr Calc Pharmacy 55.6; Estimated Glomerular Filt Rate > 60; Glucose Random 111 mg/dL (60-115); Potassium 3.4 mmol/L (3.3-5.1); Sodium 138 mmol/L (135-145)
[2021-06-18 07:07] VITALS: BP 120/58; PULSE 74; RESP 16; TEMP 36.3; O2SAT 93
[2021-06-18 08:41] VITALS: BP 120/58; PULSE 74
[2021-06-18] MEDS: Aspirin Enteric Coated 81 MG TABLET.DR PO (08:41)
[2021-06-18] MEDS: Nystatin Oral Susp 500,000 UNIT/5 ML ORAL.SUSP 500000 UNIT PO ×2 (08:41→13:02)
[2021-06-18] MEDS: Digoxin 0.125 MG TABLET PO (08:41)
[2021-06-18] MEDS: dilTIAZem HCL CD 120 MG CAP.ER.DEG PO (08:41)
[2021-06-18] MEDS: Metoprolol Succinate ER 50 MG TAB.ER.24H PO (08:41)
[2021-06-18] MEDS: Folic Acid 1 MG TABLET PO (08:41)
[2021-06-18] MEDS: Multivitamin TABLET 1 TAB PO (08:41)
--- NOTE | 2021-06-18 08:52 | P.DS_ITS ---
DS: Providers Provider Date of Service: 06/18/21 Date of admission: 06/14/21 21:50 Primary care physician: Jamarcus Garnica MD Consults: 06/15/21 10:31 Consult to Cardiology Routine Consulting Provider: Spike Whiting Reason for consultation: heart failure Has provider been notified: No Attending physician on discharge: Gabi Evans Discharging clinician: Darcy Moise DS: Diagnosis Discharge Diagnosis (1) Acute on chronic diastolic (congestive) heart failure: Status: Acute (2) Pleural effusion: Status: Acute DS: Summary Hospital Course Hospital Course: HP as per admitting provider 75-year-old female? with? recurring ? stage IV lung cancer, status post left lower lobe wedge resection with a positive lymph node, and started? chemotherapy on May 17. She has chronic AFIB and is on eliquis for stroke prevention. She she was recently admitted to hospital from May 21 through with a presentation of shortness of breath another time was diagnosed with new onset of CHF and malignant pleural effusion, she had 2.2 L of a thoracentesis on May 23. She was seen in follow-up at the pulmonology Clinic by Dr. Moise yesterday and HX x-ray added time was done and was noted to have a pleural effusion.? She was instructed that if she continued to have increasing shortness of breath a to present to the emergency room to be evaluated.? Patient presented emergency room today because of increasing shortness of breath especially with exertion she has no fever no cough.? Checks x-ray today like yesterday shows a left-sided pleural effusion.? She has significant leg edema.? Her BNP is only 188 which is much lower compared to previous 1.? Troponin I level is 42.9 which is slightly higher compared to that of yesterday.? COVID-19 test is negative . Pleural effusion. Secondary to stage IV lung cancer. Initially treated with diuresis with thought that there was also some combination of acute on chronic congestive heart failure. Inevitably she had a pleural effusion on 06/17 which yielded 1 L of fluid. A PleurX catheter was placed. She will go home with visiting nurse services and have the PleurX catheter drained twice weekly, draining 1 L of fluid each time. 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 She did well during her hospitalization with no hypoxia noted she was not on any supplemental oxygen. She will follow-up with her oncologist for next scheduled chemotherapy visit. She is safe for discharge at this point. Time Spent with Patient Time attestation: Total time spent providing and/or coordinating discharge services: Discharge coordination time: Greater than 30 minutes Quality: Stroke Does the patient have a stroke diagnosis?: No Physical Exam Vital Signs: Vital Signs: Last Vital Signs Temp 97.4 F 06/18/21 07:07 Pulse 74 06/18/21 08:41 Resp 16 06/18/21 07:07 BP 120/58 L 06/18/21 08:41 Pulse Ox 93 06/18/21 07:07 Body Mass Index 26.9 Appearing in no acute distress head is normocephalic atraumatic eyes pupils are PERRLA sclera is anicteric mouth throat mucous membranes are intact and moist neck is supple no lymphadenopathy, no JVD noted lung sounds are clear to auscultation heart regular rate rhythm, clear S1, S2 positive bowel sounds, abdomen is soft, nontender neuro patient is alert x3, no focal deficits DS: Data Data Completed and Pending Completed studies during hospitalization [Text1]: Procedures Drainage of Left Pleural Cavity, Percutaneous Approach (05/21/21) Labs on day of discharge: Laboratory Results - last 24 hr 06/17/21 06/18/21 09:56 06:06 PT 13.0 INR 1.1 Sodium 138 Potassium 3.4 Chloride 98 Carbon Dioxide 31 H Anion Gap 12 BUN 23 H Creatinine 0.85 Estim Creat Clear Calc 55.6 Estimated GFR > 60 Random Glucose 111 Calcium 7.8 L Discharge Plan Discharge Anticipated Discharge Date/Time: 06/18/21 08:48 Patient Disposition: Home Health Service Discharge Diagnosis: Acute on chronic congestive heart failure Pleural effusion Referrals: Jamarcus Garnica MD [Primary Care Provider] - 1 Week Discharge Medications: Continued folic acid 1 mg Tablet 1 mg PO DAILY Qty: 90 RF: 4 metoprolol succinate 50 mg tablet extended release 24 hr 1 tab PO DAILY RF: 0 ProAir RespiClick 90 mcg/actuation aerosol powdr breath activated 2 puff PO Q4H PRN (Reason: Shortness Of Breath) RF: 0 diltiazem HCl [DILT-XR] 120 mg capsule,ext.rel 24h degradable 120 mg PO DAILY RF: 0 digoxin 125 mcg (0.125 mg) Tablet 0.125 mg PO DAILY Qty: 30 RF: 0 Eliquis 5 mg tablet 5 mg PO BID RF: 0 rosuvastatin 20 mg tablet 20 mg PO DAILY RF: 0 aspirin 81 mg tablet,delayed release (DR/EC) 81 mg PO DAILY RF: 0 furosemide 40 mg tablet 80 mg PO DAILY RF: 0 levothyroxine 112 mcg tablet 112 mcg PO DAILY@0630 RF: 0 diltiazem HCl 240 mg capsule,ext.rel 24h degradable 240 mg PO BEDTIME RF: 0 Centrum Silver 0.4-300-250 mg-mcg-mcg tablet 1 tab PO DAILY RF: 0 Discharge Orders: Discharge Order (Routine); Ordered 06/18/21 Ordered By: Darcy Moise Diet: advance to usual diet Activity on Discharge: As tolerated Stand Alone Forms: Patient Portal Discharge page Care Plan Goals: resolution of pleural effusion Health Concerns: Acute on chronic congestive heart failure Pleural effusion Plan of Treatment: PleurX catheter maintenance: - Drain 1 L of fluid twice weekly ( total of 2 L per week) - Follow-up with pulmonology to determine necessity to change amount of draining Restart Eliquis on 06/19/2021 Assessment: see discharge summary
[2021-06-18] MEDS: Furosemide 20 MG/2 ML VIAL 40 MG IVPUSH (08:53)
--- NOTE | 2021-06-18 09:02 | MHC.CM.PN ---
pt dcd home with plerex cath referral to [facility] for draing of cath 2 x weekly
[2021-06-18] MEDS: Acetaminophen 325 MG TABLET 650 MG PO (10:34)
[2021-06-18 11:16] VITALS: BP 113/58; PULSE 71; RESP 16; TEMP 36.3; O2SAT 94
--- NOTE | 2021-06-18 12:37 | PM.CNCAR ---
History of Present Illness History of Present Illness Date of Service: 06/18/21 Requesting physician: Darcy Moise Chief complaint: heart failure, p.effusion Narrative: 75-year-old female who has background history of lung cancer stage IV on chemotherapy, atrial fibrillation and left-sided pleural effusion who is presenting with shortness of breath. She was noted to have left-sided pleural effusion again. She underwent thoracentesis with PleurX catheter placement. She was also started on IV diuretics with concern for congestive heart failure. After thoracentesis she is feeling significantly better and is denying any symptoms now. She is able to walk around without any issues at this point. No orthopnea or PND. No palpitations and she does not feel atrial fibrillation. Review of Systems Review of Systems: No shortness of breath. No chest discomfort. Yes all other systems are reviewed and are negative COUNTS INCLUDE 234 BEDS AT THE [facility] Past Medical History Medical History Adenocarcinoma of left lung, stage 4 (~01/2021) Adenocarcinoma of left lung, stage 4 Atrial fibrillation (~09/2019) Back pain CAD (coronary artery disease) CHF (congestive heart failure) COPD (chronic obstructive pulmonary disease) Heart failure History of DE (myocardial infarction) (~2002) History of pleural effusion (~09/2019) Hypertension Hypothyroidism Malignant neoplasm of lower lobe, left bronchus or lung (~01/2021) Osteoporosis Personal history of nicotine dependence Pleural effusion Pneumonia Pulmonary nodules Family History Family History Mother CAD (coronary artery disease) Surgical History Surgical History History of basal cell carcinoma excision (~04/02/98) History of cardioversion (~12/07/19) History of heart artery stent History of lung surgery (~01/22/21) Social History Social History Household Members: None Housing: Apartment Do you presently have visiting nurse or other home services: No Alcohol intake: unknown Patient Tobacco Use Status: Former Tobacco user Tobacco use type: Cigarette service: No Current occupational status: retired Meds Allergies Allergy/AdvReac Type Severity Reaction Status Date / Time codeine [CODEINE] Allergy Severe SEVERE Verified 06/13/21 15:02 HEADACHE latex [LATEX] Allergy Intermediate RASH/HIVES Verified 06/13/21 15:02 atorvastatin [From Lipitor] AdvReac Muscle Pain Verified 06/14/21 20:59 Active Medications: Current Medications Acetaminophen (Acetaminophen 325 Mg Tablet) 650 mg PO Q6H PRN PRN Reason: Pain, Mild (Pain Scale 1-3) Last Admin: 06/18/21 10:34 Dose: 650 mg Documented by: Al Hydroxide/Mg Hydroxide (Magnesium Hydrox/Alum Hydrox 30 Ml Oral.Susp) 30 ml PO Q4H PRN PRN Reason: Heartburn/Nausea Albuterol Sulfate (Albuterol Sulfate 90 Mcg 8 Gm Inhaler) 2 puff INHALE Q4H PRN PRN Reason: Shortness Of Breath Aspirin (Aspirin Enteric Coated 81 Mg Tablet.Dr) 81 mg PO DAILY [facility] Last Admin: 06/18/21 08:41 Dose: 81 mg Documented by: Digoxin (Digoxin 0.125 Mg Tablet) 0.125 mg PO DAILY [facility] Last Admin: 06/18/21 08:41 Dose: 0.125 mg Documented by: Diltiazem HCl (Diltiazem Hcl Cd 120 Mg Cap.Er.Deg) 120 mg PO DAILY [facility]; Protocol Last Admin: 06/18/21 08:41 Dose: 120 mg Documented by: Diltiazem HCl (Diltiazem Hcl Cd 240 Mg Cap.Er.Deg) 240 mg PO BEDTIME [facility]; Protocol Last Admin: 06/17/21 21:15 Dose: 240 mg Documented by: Folic Acid (Folic Acid 1 Mg Tablet) 1 mg PO DAILY [facility] Last Admin: 06/18/21 08:41 Dose: 1 mg Documented by: Furosemide (Furosemide 20 Mg/2 Ml Vial) 40 mg IVPUSH BID@0900,1800 [facility]; Protocol Last Admin: 06/18/21 08:53 Dose: 40 mg Documented by: Levothyroxine Sodium (Levothyroxine Sodium 112 Mcg Tablet) 112 mcg PO DAILY@0630 [facility] Last Admin: 06/18/21 05:44 Dose: 112 mcg Documented by: Melatonin (Melatonin 3 Mg Tablet) 6 mg PO BEDTIME PRN PRN Reason: Insomnia Metoprolol Succinate (Metoprolol Succinate Er 50 Mg Tab.Er.24h) 50 mg PO DAILY [facility]; Protocol Last Admin: 06/18/21 08:41 Dose: 50 mg Documented by: Multivitamins/Vitamin C (Multivitamin Tablet) 1 tab PO DAILY [facility] Last Admin: 06/18/21 08:41 Dose: 1 tab Documented by: Non-Formulary Medication (Rosuvastatin) 20 mg PO DAILY [facility] Nystatin (Nystatin Oral Susp 500,000 Unit/5 Ml Oral.Susp) 500,000 unit PO QID [facility]; Protocol Last Admin: 06/18/21 08:41 Dose: 500,000 unit Documented by: Ondansetron HCl (Ondansetron Hcl 4 Mg/2 Ml Vial) 4 mg IVPUSH Q8H PRN PRN Reason: Nausea and Vomiting Pharmacy Consult (Consult Rx Perform Med Rec) 1 each MISCELLANE ONCE PRN PRN Reason: Consult order Sodium Chloride (0.9 % Sodium Chloride Flush 3 Ml Syringe) 3 ml IVFLUSH QSHIFT [facility] Last Admin: 06/18/21 08:48 Dose: 3 ml Documented by: Home Medications Medication Instructions Recorded Confirmed Last Taken Type apixaban 5 mg tablet (Eliquis) 5 mg PO BID 11/30/20 06/14/21 06/14/21 History aspirin 81 mg tablet,delayed 81 mg PO DAILY 11/30/20 06/14/21 06/14/21 History release rosuvastatin 20 mg tablet 20 mg PO DAILY 11/30/20 06/14/21 06/14/21 History diltiazem HCl 240 mg 240 mg PO BEDTIME 02/08/21 06/14/21 06/13/21 History capsule,extended release 24 hr, controlled levothyroxine 112 mcg tablet 112 mcg PO DAILY@0630 02/08/21 06/14/21 06/14/21 History xpwswksz-map-bpgbq acid 0.4 1 tab PO DAILY 02/08/21 06/14/21 06/14/21 History mg-lycopene 300 mcg-lutein 250 mcg tablet (Centrum Silver) albuterol sulfate 90 mcg/actuation 2 puff PO Q4H PRN 05/21/21 06/14/21 Unknown History breath activated powder inhaler (ProAir RespiClick) diltiazem HCl 120 mg 120 mg PO DAILY 05/21/21 06/14/21 06/14/21 History capsule,extended release 24 hr, controlled (DILT-XR) metoprolol succinate 50 mg 1 tab PO DAILY 05/21/21 06/14/21 06/14/21 History tablet,extended release 24 hr furosemide 40 mg tablet 80 mg PO DAILY 06/13/21 06/14/21 06/14/21 History Physical Exam Vital Signs: Vital Signs: Last Vital Signs Temp 97.4 F 06/18/21 11:16 Pulse 71 06/18/21 11:16 Resp 16 06/18/21 11:16 BP 113/58 L 06/18/21 11:16 Pulse Ox 94 06/18/21 11:16 Body Mass Index 26.9 GENERAL APPEARANCE: in no acute distress, pleasant. NECK: no carotid bruit, no jugular venous distention. SKIN: no suspicious lesions, warm and dry. HEART: no murmurs, regular rate and rhythm. LUNGS: clear to auscultation bilaterally. ABDOMEN: soft, nontender. EXTREMITIES: no edema. PERIPHERAL PULSES: equal. NEUROLOGIC: No gross deficits, AAO X 3 Results Labs and Meds Result diagrams: 06/17/21 05:51 06/18/21 06:06 Lab results: Laboratory Results - last 24 hr 06/18/21 06:06 Sodium 138 Potassium 3.4 Chloride 98 Carbon Dioxide 31 H Anion Gap 12 BUN 23 H Creatinine 0.85 Estim Creat Clear Calc 55.6 Estimated GFR > 60 Random Glucose 111 Calcium 7.8 L ECG Interpretation: Atrial fibrillation at 91 beats per minute, normal axis, lateral ST depressions likely from digitalis effect, QT interval 430 milliseconds. Imaging Radiologist's impression: Impressions Chest X-Ray 06/17/21 17:40 IMPRESSION: Cardiomegaly no acute process seen. Newly placed left Pleurx catheter is in left lower lobe. Assessment and Plan (1) Elevated troponin: Status: Acute (2) Persistent atrial fibrillation: Status: Acute (3) Pleural effusion: Status: Acute 75-year-old female with stage IV lung cancer was presenting with shortness of breath and left-sided pleural effusion. She is status post thoracentesis and PleurX catheter placement with improvement in her symptoms. She was taking 80 mg of Lasix p.o. at home. I think the pleural effusions likely due to cancer. I think she can resume her home medications. Rate control from atrial fibrillation point of view. I think digoxin can be changed to every other day given interaction with diltiazem which can increase the digoxin level. Otherwise she is clinically stable and can go home. She will follow-up with Dr. Rogers who is her primary scooper. Thank you for allowing me to participate in the care of your patient. Please feel free to contact me if you have any questions. Procedures Date of Service Date of Service: 06/18/21
--- NOTE | 2021-06-21 14:06 | MHC.CM.PN ---
Patient discharged. [facility] will start services Thursday06/23/21. Pleurex kits have been delivered to the patients house.
== END 2021-06-18 14:38 | disposition home health service (06) | DRG 180 ==
LOC: HO.ED 17:40 → HO.EDOVER 22:21 → HO.IMC 06-15 14:02
PROVIDERS: Radiology Diagnostic Radiology; Admitting Provider Internal Medicine; Emergency Provider Emergency Medicine Emergency Medical Services; PCP Internal Medicine; Visit Provider Nurse Practitioner Acute Care
PROC: 0W9B30Z Drainage of Left Pleural Cavity with Drainage Device, Percutaneous Approach (ICD-10-PCS; principal; 2021-06-17 15:00)
DX: C34.92 Malignant neoplasm of unspecified part of left bronchus or lung (principal); I50.33 Acute on chronic diastolic (congestive) heart failure; I48.20 Chronic atrial fibrillation, unspecified; C77.9 Secondary and unspecified malignant neoplasm of lymph node, unspecified; J91.0 Malignant pleural effusion; I11.0 Hypertensive heart disease with heart failure; I25.10 Atherosclerotic heart disease of native coronary artery without angina pectoris; E03.9 Hypothyroidism, unspecified; R06.03 Acute respiratory distress; E78.5 Hyperlipidemia, unspecified; Z20.822 Contact with and (suspected) exposure to COVID-19; Z88.5 Allergy status to narcotic agent; Z79.01 Long term (current) use of anticoagulants; Z79.82 Long term (current) use of aspirin; Z79.890 Hormone replacement therapy; Z79.899 Other long term (current) drug therapy
CPT/HCPCS: 32550; 36415; 71045; 71250; 80048; 80162; 81003; 83880; 84484; 85025; 85027; 85610; 87635; 93005; 99152; 99153; 99285; C1729; J1940

== ENCOUNTER → 2021-06-26 08:40 | Outpatient (BNVA) | payer MEDICARE, SELFPAY | PROVIDERS: PCP Internal Medicine; Visit Provider Hospitalist | DX: M54.9 Dorsalgia, unspecified (principal); J90 Pleural effusion, not elsewhere classified; J18.9 Pneumonia, unspecified organism; C34.92 Malignant neoplasm of unspecified part of left bronchus or lung; I50.9 Heart failure, unspecified | CPT/HCPCS: 99212 ==

== ENCOUNTER 2021-07-17 07:43 | Outpatient (REF) | payer MEDICARE, SELFPAY ==
--- NOTE | ~2021-07-17 | CT_ITS ---
EXAMINATION: CT CHEST WITH CONTRAST CLINICAL INFORMATION: Follow-up non-small cell lung carcinoma. COMPARISON: Multiple priors, most recently 06/15/2021 TECHNIQUE: Multidetector volumetric CT imaging of the chest was obtained after the administration of 65 mL of Omnipaque 350 intravenous contrast without immediate adverse reactions. Axial MIP volume rendering provided. Sagittal and coronal reformatted images were obtained. This CT examination was performed using dose optimization techniques as appropriate, variously including the following: *Automated exposure control *Adjustment of mA and/or kV according to patient size (this includes techniques or standardized protocols for targeted exams where dose is matched to indication/reason for exam; i.e. extremities or head) *Use of iterative reconstruction technique DLP: 129 mGy-cm FINDINGS: ENDING MACHINE OPERATOR: There is blunting at the right costophrenic angle. LUNGS: The central airways are patent. Moderate bilateral pleural effusions are present. This is increased on the right compared to prior. This is decreased on the left compared to prior. Associated basilar atelectasis. Improvement of prior left upper lobe collapse. Nodular opacities are seen throughout the lungs with interstitial prominence. Increased prominence of the nodules compared to prior. There is a dominant anterior left upper lobe nodule measuring 0.8 cm on series 7 image 59. Comparison to prior imaging is limited due to collapse of the upper lobe. Compared to 05/21/2021 there were multiple small nodules in this area, suggesting growth. There is nodular thickening along the fissures. MEDIASTINUM: Normal heart size. No pericardial effusion. There is a right paratracheal lymph node with short axis measurement of 0.9 cm. This appears similar to prior. AXILLA: No lymphadenopathy. UPPER ABDOMEN: Thickening of the adrenal glands, unchanged. OSSEOUS STRUCTURES: T11 vertebral body kyphoplasty. Faint multifocal sclerosis throughout the osseous structures diffusely is similar to previous. CT/CT chest w con IMPRESSION: 1. Moderate bilateral pleural effusions, increased on the right and decreased on the left when compared to prior. 2. Diffuse septal thickening with nodularity throughout both lungs, appearing increased from prior. This suggests worsening metastatic disease/lymphangitic spread. 3. Faint multifocal sclerosis throughout the osseous structures, concerning for metastatic disease. Similar appearance to prior.
[2021-07-17] MEDS: iohexoL 350 MG/ML 100 ML INFUS..BTL IV (09:51)
== END 2021-07-17 07:44 | disposition home or self-care (01) ==
LOC: HO.CT 07:43
PROVIDERS: Visit Provider Internal Medicine Medical Oncology
DX: C34.92 Malignant neoplasm of unspecified part of left bronchus or lung (principal)
CPT/HCPCS: 71260; Q9967

== ENCOUNTER 2021-07-22 15:07 | Inpatient (IN) | payer MEDICARE, SELFPAY ==
--- NOTE | 2021-07-22 | ECG_ITS ---
Test Reason : Difficulty Breathing Blood Pressure : / mmHG Vent. Rate : 103 BPM Atrial Rate : 000 BPM P-R Int : 000 ms QRS Dur : 106 ms QT Int : 322 ms P-R-T Axes : 000 027 197 degrees QTc Int : 421 ms Atrial fibrillation with rapid ventricular response Incomplete left bundle branch block Left ventricular hypertrophy with repolarization abnormality ( [place] product ) Abnormal ECG When compared with ECG of 14-JUN-2021 18:51, ST no longer depressed in Anterior leads Referred By: Generic ED Physician Electronically Signed By:KAREN WANG MD
--- NOTE | ~2021-07-22 | XR_ITS ---
EXAMINATION: XR CHEST CLINICAL INFORMATION: Shortness of breath COMPARISON: Previous chest x-ray most recent 07/22/2021 TECHNIQUE: Frontal view of the chest was obtained. FINDINGS: The cardiac silhouette is enlarged. There is a surgical suture lines seen in the left upper lung. There is worsening reticular nodular disease seen bilaterally, left greater than right, again questionable for lymphangitic spread related to patient's history of cancer. There is pulmonary venous redistribution and increased perihilar markings and superimposed pulmonary edema should be considered. There are bilateral pleural effusions, right greater than left, increased from previous exam. There is a tunneled left chest tube. There is no pneumothorax. There are old or healing left rib fractures. There is vertebroplasty changes of the lower thoracic spine. XR/XR chest 1V IMPRESSION: Reticular nodular disease, left greater than right, again questionable for lymphangitic tumor spread. Superimposed CHF should be considered.
--- NOTE | ~2021-07-22 | XR_ITS ---
EXAMINATION: XR CHEST CLINICAL INFORMATION: 68-year-old female with difficulty breathing. COMPARISON: Chest CT 07/17/2021 and chest x-ray 06/17/2021 TECHNIQUE: 2 views of the chest were obtained. FINDINGS: Stable cardiac silhouette. Lungs are adequately aerated. Diffuse nodularity again identified throughout both lungs, more prominent on the left, most suggestive of lymphangitic spread of disease. No gross lobar consolidation is identified. Small right-sided pleural effusion appears stable in size. Left-sided Pleurx catheter is again noted with a suspected tiny left-sided pleural effusion. No pneumothorax present. Patient is status post T11 cement augmentation. XR/XR chest 2V IMPRESSION: Stable appearance of suspected lymphangitic spread of disease with small bilateral pleural effusions, relatively similar in size to CT imaging from July 17.
[2021-07-22 15:45] VITALS: BP 97/48; PULSE 84; RESP 21; TEMP 36.1; O2SAT 93; BMI 25.0
--- NOTE | 2021-07-22 19:48 | ED.SOB ---
HPI - SOB/Dyspnea General Chief Complaint: Dyspnea Stated Complaint: diff. breathing and walking hx of lung cancer Time Seen by Provider: 07/22/21 17:00 Source: patient Mode of arrival: ambulatory Limitations: no limitations History of Present Illness HPI Narrative: Patient with history of recurrent adenocarcinoma of left lung stage IV status post lobectomy on chemotherapy with pleural effusion which gets drained twice a week patient received chemotherapy 3 days ago since then patient feels miserable not eating or drinking much denies any nausea vomiting or diarrhea no significant chest pain or fever or chills does not feels good no energy body aches all over. Feels dehydrated Related Data Home Medications Medication Instructions Recorded Confirmed apixaban 5 mg tablet (Eliquis) 5 mg PO BID 11/30/20 06/28/21 aspirin 81 mg tablet,delayed 81 mg PO DAILY 11/30/20 06/28/21 release rosuvastatin 20 mg tablet 20 mg PO DAILY 11/30/20 06/28/21 diltiazem HCl 240 mg 240 mg PO BEDTIME 02/08/21 06/28/21 capsule,extended release 24 hr, controlled levothyroxine 112 mcg tablet 112 mcg PO DAILY@0630 02/08/21 06/28/21 cxitccgb-emj-pgjzk acid 0.4 1 tab PO DAILY 02/08/21 06/28/21 mg-lycopene 300 mcg-lutein 250 mcg tablet (Centrum Silver) albuterol sulfate 90 mcg/actuation 2 puff PO Q4H PRN 05/21/21 06/28/21 breath activated powder inhaler (ProAir RespiClick) metoprolol succinate 50 mg 1 tab PO DAILY 05/21/21 06/28/21 tablet,extended release 24 hr furosemide 40 mg tablet 80 mg PO DAILY 06/13/21 06/28/21 Previous Rx's Medication Instructions Recorded folic acid 1 mg tablet 1 mg PO DAILY #90 tab 05/15/21 digoxin 125 mcg (0.125 mg) tablet 0.125 mg PO DAILY #30 tab 05/25/21 diltiazem HCl 120 mg 120 mg PO 3XW #15 cap 06/18/21 capsule,extended release 24 hr, controlled (DILT-XR) calcium carbonate 600 mg (1,500 1 tab PO DAILY #90 tab 06/21/21 mg)-vitamin D3 200 unit tablet (Calcium 600 + D(3)) Magic Mouthwash 10 ml PO Q6H PRN 30 Days #300 ml 06/26/21 Diphen/Lido/Antacid 1:1:1 240 mL suspension Allergies Allergy/AdvReac Type Severity Reaction Status Date / Time codeine [CODEINE] Allergy Severe SEVERE Verified 07/22/21 15:54 HEADACHE latex [LATEX] Allergy Intermediate RASH/HIVES Verified 07/22/21 15:54 atorvastatin [From Lipitor] AdvReac Muscle Pain Verified 07/22/21 15:54 Review of Systems Review of Systems: Yes all other systems are reviewed and are negative [facility] Past Medical History Medical History Acute on chronic diastolic (congestive) heart failure Adenocarcinoma of left lung, stage 4 (~01/2021) Adenocarcinoma of left lung, stage 4 Atrial fibrillation (~09/2019) Back pain CAD (coronary artery disease) CHF (congestive heart failure) COPD (chronic obstructive pulmonary disease) Heart failure History of [place] (myocardial infarction) (~2002) History of pleural effusion (~09/2019) Hypertension Hypothyroidism Malignant neoplasm of lower lobe, left bronchus or lung (~01/2021) Osteoporosis Persistent atrial fibrillation Personal history of nicotine dependence Pleural effusion Pneumonia Pulmonary nodules Surgical History History of basal cell carcinoma excision (~04/02/98) History of cardioversion (~12/07/19) History of heart artery stent History of lung surgery (~01/22/21) Family History Family History Mother CAD (coronary artery disease) Social History Social History Household Members: None Housing: Apartment Do you presently have visiting nurse or other home services: No Alcohol intake: unknown Patient Tobacco Use Status: Former Tobacco user Tobacco use type: Cigarette Advance Directives: No service: No Current occupational status: retired Physical Exam Vital Signs: Vital Signs: Last Vital Signs Temp 97.5 F 07/22/21 19:53 Pulse 96 07/22/21 20:29 Resp 18 07/22/21 19:53 BP 125/68 07/22/21 20:29 Pulse Ox 94 11/08/21 20:29 Body Mass Index 25.0 Appearance: Alert. Oriented X3. No acute distress. Eyes: No pallor or icterus ENT: Pharynx normal. Oral Mucosa moist Neck: Normal inspection. Neck supple. CVS: Normal heart rate and rhythm. Pulses normal. Respiratory: No respiratory distress. Equal air entry bilateral, no wheezing/rales/rhonchi PleurX catheter on the left side Abdomen: Soft and nontender. Bowel sounds are present, no mass palpable, no CVA tenderness Skin: Skin warm and dry. Normal skin color. Normal skin turgor. Extremities: No lower extremity edema. No calf tenderness Neuro: Oriented X 3. No motor deficit. MDM - SOB/Dyspnea MDM Narrative Medical decision making narrative: Patient with adenocarcinoma left lung stage IV and chemotherapy been feeling very weak and tired unable to do her ADLs, lives alone unable to ambulate because of weakness would like to go to rehab/SNF. Will get case management involved for placement Medical Records Attestation: I reviewed the patient's medical records. Lab Data Attestation: I reviewed the patient's lab results. Result diagrams: 07/22/21 20:18 07/22/21 20:18 Labs: Lab Results 07/22/21 07/22/21 07/22/21 Range/Units 19:52 20:18 20:18 WBC 8.2 (4.8-10.8) X10*3/uL RBC 2.83 L (4.20-5.50) X10*6/uL Hgb 9.1 L (12.0-16.0) g/dl Hct 27.3 L (37.0-47.0) % MCV 96.5 (80.0-98.0) fL MCH 32.2 (27.0-33.0) pg MCHC 33.3 (31.0-35.0) g/dl RDW 23.5 H (11.0-16.0) % Plt Count 224 (160-400) X10*3/uL MPV 11.1 (9.4-12.3) fL Immature Gran % (Auto) 0.5 H (0.0-0.4) % Neut % (Auto) 91.7 H (45-73) % Lymph % (Auto) 6.0 L (20-40) % [place] % (Auto) 1.7 L (2-11) % Eos % (Auto) 0.1 (0-4) % Baso % (Auto) 0.0 (0-2) % Lymph # (Auto) 0.5 L (1.2-4.9) X10*3/uL [place] # (Auto) 0.1 (0.1-1.2) X10*3/uL Eos # (Auto) 0.0 (0.0-0.4) X10*3/uL Baso # (Auto) 0.0 (0.0-0.2) X10*3/uL Abs Immat Gran (auto) 0.04 H (0.00-0.03) X10*3/uL Absolute Neuts (auto) 7.5 (2.0-8.3) x10*3/uL Absolute Nucleated RBC 0.110 H (0.0-0.012) X10*3/uL Nucleated RBC % (auto) 1.3 H (0.0-0.2) /100WBC Smear Tech's Comments VERIFIED Sodium 137 (135-145) mmol/L Potassium 4.6 (3.3-5.1) mmol/L Chloride 102 (96-108) mmol/L Carbon Dioxide 20 L (22-29) mmol/L Anion Gap 20 (12-20) BUN 38 H D (9-16) mg/dL Creatinine 1.22 (0.5-1.4) mg/dL Estim Creat Clear Calc 34.2 Estimated GFR 43 Random Glucose 141 H (60-115) mg/dL Calcium 7.4 L (8.4-10.2) mg/dL Magnesium 2.1 (1.6-2.6) mg/dL Total Bilirubin 0.3 (0.0-1.0) mg/dL AST 37 H (5-31) U/L ALT 31 (0-31) U/L Alkaline Phosphatase 108 (39-117) U/L B-Natriuretic Peptide (<100) pg/mL Total Protein 5.5 L (6.5-8.0) g/dL Albumin 3.2 L (3.5-5.0) g/dL Influenza Type A (PCR) NEGATIVE (Negative) Influenza Type B (PCR) NEGATIVE (Negative) RSV RNA Qual (PCR) NEGATIVE (Negative) SARS-CoV-2 RNA (RT-PCR) NEGATIVE (Negative) 07/22/21 Range/Units 20:18 WBC (4.8-10.8) X10*3/uL RBC (4.20-5.50) X10*6/uL Hgb (12.0-16.0) g/dl Hct (37.0-47.0) % MCV (80.0-98.0) fL MCH (27.0-33.0) pg MCHC (31.0-35.0) g/dl RDW (11.0-16.0) % Plt Count (160-400) X10*3/uL MPV (9.4-12.3) fL Immature Gran % (Auto) (0.0-0.4) % Neut % (Auto) (45-73) % Lymph % (Auto) (20-40) % [place] % (Auto) (2-11) % Eos % (Auto) (0-4) % Baso % (Auto) (0-2) % Lymph # (Auto) (1.2-4.9) X10*3/uL [place] # (Auto) (0.1-1.2) X10*3/uL Eos # (Auto) (0.0-0.4) X10*3/uL Baso # (Auto) (0.0-0.2) X10*3/uL Abs Immat Gran (auto) (0.00-0.03) X10*3/uL Absolute Neuts (auto) (2.0-8.3) x10*3/uL Absolute Nucleated RBC (0.0-0.012) X10*3/uL Nucleated RBC % (auto) (0.0-0.2) /100WBC Smear Tech's Comments Sodium (135-145) mmol/L Potassium (3.3-5.1) mmol/L Chloride (96-108) mmol/L Carbon Dioxide (22-29) mmol/L Anion Gap (12-20) BUN (9-16) mg/dL Creatinine (0.5-1.4) mg/dL Estim Creat Clear Calc Estimated GFR Random Glucose (60-115) mg/dL Calcium (8.4-10.2) mg/dL Magnesium (1.6-2.6) mg/dL Total Bilirubin (0.0-1.0) mg/dL AST (5-31) U/L ALT (0-31) U/L Alkaline Phosphatase (39-117) U/L B-Natriuretic Peptide 457 H (<100) pg/mL Total Protein (6.5-8.0) g/dL Albumin (3.5-5.0) g/dL Influenza Type A (PCR) (Negative) Influenza Type B (PCR) (Negative) RSV RNA Qual (PCR) (Negative) SARS-CoV-2 RNA (RT-PCR) (Negative) Discharge Plan Discharge Clinical Impression: Adenocarcinoma of left lung, stage 4, Adult failure to thrive, Weakness Prescriptions: No Action folic acid 1 mg Tablet 1 mg PO DAILY Qty: 90 RF: 4 calcium carbonate-vitamin D3 [Calcium 600 + D(3)] 600 mg(1,500mg) -200 unit Tablet 1 tab PO DAILY Qty: 90 RF: 4 metoprolol succinate 50 mg tablet extended release 24 hr 1 tab PO DAILY RF: 0 ProAir RespiClick 90 mcg/actuation aerosol powdr breath activated 2 puff PO Q4H PRN (Reason: Shortness Of Breath) RF: 0 digoxin 125 mcg (0.125 mg) Tablet 0.125 mg PO DAILY Qty: 30 RF: 0 diltiazem HCl [DILT-XR] 120 mg capsule,ext.rel 24h degradable 120 mg PO 3XW Qty: 15 RF: 0 Eliquis 5 mg tablet 5 mg PO BID RF: 0 rosuvastatin 20 mg tablet 20 mg PO DAILY RF: 0 aspirin 81 mg tablet,delayed release (DR/EC) 81 mg PO DAILY RF: 0 furosemide 40 mg tablet 80 mg PO DAILY RF: 0 levothyroxine 112 mcg tablet 112 mcg PO DAILY@0630 RF: 0 diltiazem HCl 240 mg capsule,ext.rel 24h degradable 240 mg PO BEDTIME RF: 0 Centrum Silver 0.4-300-250 mg-mcg-mcg tablet 1 tab PO DAILY RF: 0 Magic Mouthwash Diphen/Lido/Antacid 1:1:1 240 mL suspension 10 ml PO Q6H PRN (Reason: oral discomfort) 30 Days Qty: 300 RF: 3
[2021-07-22 19:53] VITALS: BP 120/49; PULSE 75; RESP 18; TEMP 36.4; O2SAT 93
[2021-07-22] MEDS: 0.9 % Sodium Chloride 1,000 ML 999 ML IVCONT (20:26)
[2021-07-22 20:29] VITALS: BP 125/68; PULSE 96; O2SAT 94
[2021-07-22 20:44] LABS: Eosinophils Percent Auto 0.1 % (0-4); Hematocrit 27.3 % (37.0-47.0); Hemoglobin 9.1 g/dl (12.0-16.0); Imm Gran Abs Auto 0.04 X10*3/uL (0.00-0.03); Imm Gran Pct Auto 0.5 % (0.0-0.4); Lymphocytes Absolute Auto 0.5 X10*3/uL (1.2-4.9); MANUAL DIFF FLAG SCAN; Mean Corpuscular HGB Conc 33.3 g/dl (31.0-35.0); Mean Corpuscular Hemoglobin 32.2 pg (27.0-33.0); Mean Corpuscular Volume 96.5 fL (80.0-98.0); Mean Platelet Volume 11.1 fL (9.4-12.3); Monocytes Absolute Auto 0.1 X10*3/uL (0.1-1.2); Monocytes Percent Auto 1.7 % (2-11); Neutrophils Absolute Auto 7.5 x10*3/uL (2.0-8.3); Neutrophils Percent Auto 91.7 % (45-73); Platelet Count 224 X10*3/uL (160-400); Red Blood Count 2.83 X10*6/uL (4.20-5.50); Red Cell Distribution Width 23.5 % (11.0-16.0); SCAN SMEAR FLAG 1; White Blood Count 8.2 X10*3/uL (4.8-10.8)
[2021-07-22 20:46] LABS: NRBC Pct Auto 1.3 /100WBC (0.0-0.2)
[2021-07-22 20:49] LABS: Influenza A PCR NEGATIVE (Negative); Influenza B PCR NEGATIVE (Negative); Resp Syncy Virus RNA Qual PCR NEGATIVE (Negative); SARS COV2 PCR INHOUSE NEGATIVE (Negative)
[2021-07-22 20:57] LABS: Alanine Aminotransferase 31 U/L (0-31); Albumin Level 3.2 g/dL (3.5-5.0); Alkaline Phosphatase 108 U/L (39-117); Anion Gap 20 (12-20); Aspartate Amino Transferase 37 U/L (5-31); Bilirubin Total 0.3 mg/dL (0.0-1.0); Blood Urea Nitrogen 38 mg/dL (9-16); Calcium 7.4 mg/dL (8.4-10.2); Carbon Dioxide 20 mmol/L (22-29); Chloride 102 mmol/L (96-108); Creatinine Clr Calc Pharmacy 34.2; Estimated Glomerular Filt Rate 43; Glucose Random 141 mg/dL (60-115); Magnesium 2.1 mg/dL (1.6-2.6); Potassium 4.6 mmol/L (3.3-5.1); Sodium 137 mmol/L (135-145); Total Protein 5.5 g/dL (6.5-8.0)
[2021-07-22 21:00] LABS: B Type Natriuretic Peptide 457 pg/mL (<100)
[2021-07-22 21:04] LABS: SLIDE REVIEW VERIFIED
[2021-07-23] VITALS (13 sets, daily range): BP systolic 89–125; BP diastolic 43–68; PULSE 93–144; RESP 14–24; TEMP 36.5; O2SAT 93–98
--- NOTE | 2021-07-23 09:38 | MHC.CM.CNN ---
Addendum entered by Janey Jimenez 07/23/21 14:34: [facility] are unable to offer a bed. Refrerral broadcasted to all facilities contracted with patient's insurance within 10 miles of her home. Original Note: Received case management consult overnight. Patient came to ER due to diff breathing. Patient has a history of lung ca with a pleurex catheter. Patient last received IV chemo on 07/19. Next dose is due 08/16. PCP verified. Copy of HCP verified to be on file. Physical therapy eval completed. Short term rehab is recommended. List of facilities contracted with patient's insurance provided from [facility]. Choices: 1) [facility] 2)[facility]. Referrals made via [employer]. Continue to monitor for d/c needs.
[2021-07-23] MEDS: dilTIAZem HCL 50 MG/10 ML VIAL 10 MG IVPUSH ×2 (14:48→15:22)
--- NOTE | 2021-07-23 15:07 | PHA.MEDREC ---
Pharmacy Consult ? Medication Reconciliation Pharmacy has completed the medication reconciliation. Per Patient, they have not filled or taken digoxin since last discharge. She is unaware if she is supposed to be on it. Per cardiology note on 06/18, it was suggested she move to Q other day dosing. Thanks Calderon Cheema Pharm D
--- NOTE | 2021-07-23 15:08 | ECG_ITS ---
Test Reason : WEAKNESS Blood Pressure : / mmHG Vent. Rate : 136 BPM Atrial Rate : 000 BPM P-R Int : 000 ms QRS Dur : 100 ms QT Int : 306 ms P-R-T Axes : 000 040 198 degrees QTc Int : 460 ms Atrial fibrillation with rapid ventricular response with premature ventricular or aberrantly conducted complexes Minimal voltage criteria for LVH, may be normal variant ( Maple product ) ST & T wave abnormality, consider inferolateral ischemia Abnormal ECG When compared with ECG of 22-JUL-2021 18:14, Heart rate has increased Referred By: Belén Cohen Electronically Signed By:KAREN WANG MD
--- NOTE | 2021-07-23 15:37 | PC.NURSE ---
Pt was moved to room 16 and i assumed care of patient around 14:00. Pt was noted to be hypoxic to 88% on room air and tachycardic. Pt put on radiation monitor and pt in an afib with a rate between 120 and 160 with noted hypotension. PA notified and pt given 2 doses of iv diltiazem with some improvement, but remains hypotensive. pt is on oxygen and maintaining spo2. pharmacy to do med rec so patient can recieve daily medications she missed
[2021-07-23] MEDS: dilTIAZem HCL 125 MG in 0.9 % Sodium Chloride 100 ML IVCONT (16:19)
--- NOTE | 2021-07-23 16:56 | PM.IMHP ---
History of Present Illness Date of Service: 07/23/21 Chief Complaint: weakness, AFIB with RVR 76-year-old female? with? recurring ? stage IV lung cancer, status post left lower lobe wedge resection with a positive lymph node, and started? chemotherapy on May 17, her last chemo was last thursday (4 days ago). She has chronic AFIB and is on eliquis for stroke prevention. She she was recently admitted to hospital from June 14 through of this year for shortness of breath related to CHF and recurrent plerual effusion, she has PleurX catheter for draining at home. She presented to the ED on this occasion because of increasing weakness and anorexia. Her apetite has been very poor and hardly eating or drinking . The plan was for her to be transfered to a short term rehab but she went into AFIB with RVR with HR up to 150s and has been initiated on IV cardizem drip and now needs to be be admitted. She doesn't feel palpitation, has no chest pain, no sob. Review of Systems Review of Systems: Gen: no fever Resp: no sob, no cough CV: no chest, no KAPOOR, + leg edema, no palpitations. GI: No n/v, no abd pain Neuro: No confusion Yes all other systems are reviewed and are negative [facility] Medical History Acute on chronic diastolic (congestive) heart failure Adenocarcinoma of left lung, stage 4 (~01/2021) Adenocarcinoma of left lung, stage 4 Atrial fibrillation (~09/2019) Back pain CAD (coronary artery disease) CHF (congestive heart failure) COPD (chronic obstructive pulmonary disease) Heart failure History of [place] (myocardial infarction) (~2002) History of pleural effusion (~09/2019) Hypertension Hypothyroidism Malignant neoplasm of lower lobe, left bronchus or lung (~01/2021) Osteoporosis Persistent atrial fibrillation Personal history of nicotine dependence Pleural effusion Pneumonia Pulmonary nodules Family History Mother CAD (coronary artery disease) Surgical History History of basal cell carcinoma excision (~04/02/98) History of cardioversion (~12/07/19) History of heart artery stent History of lung surgery (~01/22/21) Social History Household Members: None Housing: Apartment Do you presently have visiting nurse or other home services: No Alcohol intake: unknown Patient Tobacco Use Status: Former Tobacco user Tobacco use type: Cigarette Advance Directives: No service: No Current occupational status: retired Meds Allergies Allergy/AdvReac Type Severity Reaction Status Date / Time codeine [CODEINE] Allergy Severe SEVERE Verified 07/22/21 15:54 HEADACHE latex [LATEX] Allergy Intermediate RASH/HIVES Verified 07/22/21 15:54 atorvastatin [From Lipitor] AdvReac Muscle Pain Verified 07/22/21 15:54 Active Medications: Current Medications Diltiazem HCl 125 mg/ Sodium (Chloride) 125 mls @ 0 mls/hr IVCONT .Q0M OSIRIS; Protocol Last Admin: 07/23/21 16:19 Dose: 5 mg/hr, 5 mls/hr Documented by: Pharmacy Consult (Consult Rx Perform Med Rec) 1 each MISCELLANE ONCE PRN PRN Reason: Consult order Home Medications Medication Instructions Recorded Confirmed Last Taken Type apixaban 5 mg tablet (Eliquis) 5 mg PO BID 11/30/20 07/23/21 07/22/21 History aspirin 81 mg tablet,delayed 81 mg PO DAILY 11/30/20 07/23/21 07/22/21 History release rosuvastatin 20 mg tablet 20 mg PO DAILY 11/30/20 07/23/21 07/22/21 History diltiazem HCl 240 mg 240 mg PO BEDTIME 02/08/21 07/23/21 07/21/21 History capsule,extended release 24 hr, controlled levothyroxine 112 mcg tablet 112 mcg PO DAILY@0630 02/08/21 07/23/21 07/22/21 History tbzajerz-ams-ivwrs acid 0.4 1 tab PO DAILY 02/08/21 07/23/21 07/22/21 History mg-lycopene 300 mcg-lutein 250 mcg tablet (Centrum Silver) albuterol sulfate 90 mcg/actuation 2 puff PO Q4H PRN 05/21/21 07/23/21 Unknown History breath activated powder inhaler (ProAir RespiClick) metoprolol succinate 50 mg 1 tab PO DAILY 05/21/21 07/23/21 07/22/21 History tablet,extended release 24 hr furosemide 40 mg tablet 80 mg PO DAILY 06/13/21 07/23/21 07/22/21 History diltiazem HCl 120 mg 120 mg PO DAILY 07/23/21 07/23/21 07/22/21 History capsule,extended release 24 hr, controlled (DILT-XR) Physical Exam Vital Signs and Narrative: Vital Signs: Last Vital Signs Temp 97.7 F 07/23/21 14:22 Pulse 124 H 07/23/21 16:37 Resp 22 H 07/23/21 16:37 BP 103/54 L 07/23/21 16:37 Pulse Ox 95 07/23/21 16:37 Body Mass Index 25.0 Const: Other: Constitutional: Alert, in no distress, overweight. Mental Status: Oriented to person, place and time. Eyes: Pupils are equal, round and reactive to light. Ear, Nose and Throat: Oropharynx clear, mucous membranes moist. Ears and nose without eformities. Trachea midline. Respiratory: Clear to auscultation. No wheezing, rales or rhonchi. Cardiovascular: S1 S2 iregular, iregular, she has +1 pitting edema in the legs Gastrointestinal: Abdomen soft, non-tender, non-distended. Normal bowel sounds.? Neurologic: Cranial nerves II-XII grossly intact. No focal neurological deficits. Moves all extremities spontaneously.? Skin: No rashes or lesions.? Musculoskeletal: No cyanosis or clubbing. Psychiatric: Normal mood and affect? Results Labs CBC and Chem 7: 07/22/21 20:18 07/22/21 20:18 Labs: Laboratory Results - last 24 hr 07/22/21 07/22/21 07/22/21 19:52 20:18 20:18 MCV 96.5 MCH 32.2 MCHC 33.3 RDW 23.5 H Plt Count 224 MPV 11.1 Immature Gran % (Auto) 0.5 H Neut % (Auto) 91.7 H Lymph % (Auto) 6.0 L [place] % (Auto) 1.7 L Eos % (Auto) 0.1 Baso % (Auto) 0.0 Lymph # (Auto) 0.5 L [place] # (Auto) 0.1 Eos # (Auto) 0.0 Baso # (Auto) 0.0 Abs Immat Gran (auto) 0.04 H Absolute Neuts (auto) 7.5 Absolute Nucleated RBC 0.110 H Nucleated RBC % (auto) 1.3 H Smear Tech's Comments VERIFIED Anion Gap 20 Estim Creat Clear Calc 34.2 Estimated GFR 43 Random Glucose 141 H Calcium 7.4 L Magnesium 2.1 Total Bilirubin 0.3 AST 37 H ALT 31 Alkaline Phosphatase 108 B-Natriuretic Peptide Total Protein 5.5 L Albumin 3.2 L Influenza Type A (PCR) NEGATIVE Influenza Type B (PCR) NEGATIVE RSV RNA Qual (PCR) NEGATIVE SARS-CoV-2 RNA (RT-PCR) NEGATIVE 07/22/21 20:18 MCV MCH MCHC RDW Plt Count MPV Immature Gran % (Auto) Neut % (Auto) Lymph % (Auto) [place] % (Auto) Eos % (Auto) Baso % (Auto) Lymph # (Auto) [place] # (Auto) Eos # (Auto) Baso # (Auto) Abs Immat Gran (auto) Absolute Neuts (auto) Absolute Nucleated RBC Nucleated RBC % (auto) Smear Tech's Comments Anion Gap Estim Creat Clear Calc Estimated GFR Random Glucose Calcium Magnesium Total Bilirubin AST ALT Alkaline Phosphatase B-Natriuretic Peptide 457 H Total Protein Albumin Influenza Type A (PCR) Influenza Type B (PCR) RSV RNA Qual (PCR) SARS-CoV-2 RNA (RT-PCR) Assessment and Plan (1) Adult failure to thrive: Status: Acute (2) Weakness: Status: Acute (3) Atrial fibrillation with rapid ventricular response: Status: Acute (4) Heart failure: Status: Acute (5) Adenocarcinoma of left lung, stage 4: Status: Acute (6) Pleural effusion: Status: Acute 75-year-old female patient with recurrent? stage IV lung cancer, currently receiving chemotherapy, recurrent pleural effusion s/p PleurX catheter, chronic AFIB on Eliquis, she presented with weakness and decrease apetite since last chemo and is now in AFIB with RVR 1. Chronic AFIB with RVR--continue IV cardizem drip and if not improving will add Digoxin 0.25 q6, continue Eliquis . 2. Chronic diastolic heart failure--continue oral Lasix 3. Hypothyroidism--continue levothyroxine. 4.? Hyperlipidemia --continue statin 5. Recurrent pleural effusion--Drain via Pleurx Cath 6/weakness, poor apetite, moderate protein calory malnutrition--supplement, PT eval for rehab DVT prophylaxis,, eliquis Quality Stroke Does the patient have a stroke diagnosis?: No VTE Prior VTE?: No VTE Risk Level:: Medical - moderate - high VTE Device Contraindication: Treatment Not Indicated VTE Drug Contraindication: N/A - Med Ordered
[2021-07-23 17:12] LABS: Digoxin < 0.3 ng/mL (0.8-2.0)
[2021-07-23 18:42] LABS: Troponin-I High Sensitivity 23.5 ng/L (<3.5-17.0)
--- NOTE | 2021-07-23 19:55 | PC.NURSE ---
pt denies chest pain, pt is uncomfortable in the stretcher. seeking hosp bed. pt was asleeping skin pink warm and dry.
--- NOTE | 2021-07-23 19:56 | PC.NURSE ---
pt on cardizem drip 10mg/hr hr 114 afib.
--- NOTE | 2021-07-23 20:22 | MHC.CM.PN ---
CM met with admitted patient with bed assignment pending. A&Ox3/ IMM reviewed and signed per protocol 07/23/2021@ 2019. HCP on file. HCP/debo Godfrey ([phone]). Fully vaccinated with Pfizer 10/24 and 11/14. Pt lives alone. Uses a cane. Has pleurex catheter, used to drain pleural effusions on Thursday and . Aguilar MASON does this. D/C plan is STR. Mariam of is following. CM to follow for d/c needs.
[2021-07-23] MEDS: Apixaban 5 MG TABLET PO (21:08)
[2021-07-24] VITALS (13 sets, daily range): BP systolic 85–110; BP diastolic 37–66; PULSE 60–127; RESP 16–24; TEMP 36.3–37.1; O2SAT 91–98; BMI 27.2
[2021-07-24] MEDS: dilTIAZem HCL 125 MG in 0.9 % Sodium Chloride 100 ML 15 MG IVCONT ×3 (01:53→17:32)
--- NOTE | 2021-07-24 05:40 | PC.NURSE ---
ADMIT TO 446-` VIA STRETCHER..ALERT..ORIENTED X3..RESPIRATIONS EASY AT REST WITH O2 2 L/M...ATRIAL FIB HR 110'S 120'S..CARDIZEM TITRATED FROM 10 MG/HR TO 15 MG/HR...HR 100'S-110'S...OCASSLARRY BRODY'S PHENOMINON...OOB TO BEDSIDE COMMODE TO VOID...KAPOOR..BACK TO BED ..NAPPING INTERMITTANTLY
[2021-07-24] MEDS: Levothyroxine Sodium 112 MCG TABLET PO (06:41)
--- NOTE | 2021-07-24 08:41 | HE.PHANOTE ---
Spoke with the FLORA Stevenson to see if the family could bring in the patients non-form medication from home. Will follow up Dania Anderson PharmD
[2021-07-24] MEDS: 0.9 % Sodium Chloride Flush 3 ML SYRINGE IVFLUSH (09:21)
[2021-07-24] MEDS: Furosemide 40 MG TABLET 80 MG PO (09:22)
[2021-07-24] MEDS: Calcium + Vitamin D 250 MG TABLET 500 MG PO (09:24)
[2021-07-24] MEDS: Metoprolol Succinate ER 50 MG TAB.ER.24H PO (09:24)
[2021-07-24] MEDS: Folic Acid 1 MG TABLET PO (09:24)
[2021-07-24] MEDS: Multivitamin TABLET 1 TAB PO (09:25)
[2021-07-24] MEDS: Apixaban 5 MG TABLET PO ×2 (09:25→20:29)
--- NOTE | 2021-07-24 11:49 | MHC.CM.PN ---
PER ROUNDS MD SAYING PT IS READY FOR DC AND WILL NEED STR REFERRALS HAVE BEEN MADE PT EVAL SENT TO ALL FACILITIES AWAIT ACCEPTANCE AND THEN WILL NEED AUTH
--- NOTE | 2021-07-24 13:39 | MHC.CLN ---
Addendum entered by Velia Novak, KACY 07/24/21 13:40: AGREE WITH PROVIDER'S ASSESSMENT BELOW Original Note: PT IS MODERATELY MALNOURISHED R/T STAGE 4 LUNG CA PT HAS CONSUMED <75% ENERGY INTAKE > 1 MONTH, HAS MILD MUSCLE WASTING OF TEMPLES, AND EXPERIENCED 9.1% WT LOSS X 6 MONTHS PT STATES SHE HAS HAD POOR PO INTAKE FOR A FEW MONTHS DUE TO METALLIC TASTE FROM CHEMOTHERAPY PT DISLIKES ENSURE, RECOMMEND [employer]UC[employer] SUPPLEMENT TID TO PROVIDE 711 KCALS AND 30 GRAMS PROTEIN MONITOR PO INTAKE CLOSELY AND SUPPLEMENT ACCEPTANCE
--- NOTE | 2021-07-24 16:26 | P.PNIM_ITS ---
Subjective Subjective Date of Service: 07/24/21 Interval History: f/u on afib with rvr, weakness Review of Systems no sob, no chest pain or palpitation, no fever Physical Exam Vital Signs: Vital Signs: Last Vital Signs Temp 98.8 F 07/24/21 15:31 Pulse 102 H 07/24/21 15:31 Resp 18 07/24/21 15:31 BP 95/49 L 07/24/21 15:31 Pulse Ox 91 L 07/24/21 15:31 Body Mass Index 27.2 Const: Other: General: AO X 3, no acute distress Resp: CTA bilateral CVS: S1,S2, iregular, 1+ leg edema GI: +BS, NT, no distention Skin: No rash Neuro: motor grossly intact Psych: appropriate affect Objective Data Active Medications Acetaminophen (Acetaminophen 325 Mg Tablet) 650 mg PO Q6H PRN PRN Reason: Pain, Mild (Pain Scale 1-3) Albuterol Sulfate (Albuterol Sulfate 90 Mcg 8 Gm Inhaler) 2 puff INHALE Q4H PRN PRN Reason: Shortness Of Breath Apixaban (Apixaban 5 Mg Tablet) 5 mg PO BID [facility] Last Admin: 07/24/21 09:25 Dose: 5 mg Documented by: NABILA Aspirin (Aspirin Enteric Coated 81 Mg Tablet.) 81 mg PO BEDTIME [facility] Calcium Carbonate/Cholecalciferol (Calcium + Vitamin D 250 Mg Tablet) 500 mg PO DAILY [facility] Last Admin: 07/24/21 09:24 Dose: 500 mg Documented by: NABILA Folic Acid (Folic Acid 1 Mg Tablet) 1 mg PO DAILY [facility] Last Admin: 07/24/21 09:24 Dose: 1 mg Documented by: NABILA Furosemide (Furosemide 40 Mg Tablet) 80 mg PO DAILY [facility]; Protocol Last Admin: 07/24/21 09:22 Dose: 80 mg Documented by: NABILA Diltiazem HCl 125 mg/ Sodium (Chloride) 125 mls @ 0 mls/hr IVCONT .Q0M [facility]; Protocol Last Admin: 07/24/21 09:25 Dose: 15 mg/hr, 15 mls/hr Documented by: NABILA Levothyroxine Sodium (Levothyroxine Sodium 112 Mcg Tablet) 112 mcg PO DAILY@0600 [facility] Last Admin: 07/24/21 06:41 Dose: 112 mcg Documented by: SEAMUS Metoprolol Succinate (Metoprolol Succinate Er 50 Mg Tab.Er.24h) 50 mg PO DAILY [facility]; Protocol Last Admin: 07/24/21 09:24 Dose: 50 mg Documented by: NABILA Multivitamins/Vitamin C (Multivitamin Tablet) 1 tab PO DAILY [facility] Last Admin: 07/24/21 09:25 Dose: 1 tab Documented by: NABILA Patient Own Medication ( Rosuvastatin 20 Mg Tablet) 1 each PO BEDTIME [facility] Pharmacy Consult (Consult Rx Perform Med Rec) 1 each MISCELLANE ONCE PRN PRN Reason: Consult order Sodium Chloride (0.9 % Sodium Chloride Flush 3 Ml Syringe) 3 ml IVFLUSH QSHIFT [facility] Last Admin: 07/24/21 15:08 Dose: Not Given Documented by: NABILA Non-Admin Reason: cardizem drip Labs CBC & Chem 7: 07/22/21 20:18 07/22/21 20:18 Labs: Laboratory Results - last 24 hr 07/23/21 07/23/21 16:36 18:09 Troponin I High Sens 23.5 H* D Digoxin < 0.3 L Assessment and Plan (1) Adult failure to thrive: Status: Acute (2) Weakness: Status: Acute (3) Atrial fibrillation with rapid ventricular response: Status: Acute (4) Heart failure: Status: Acute (5) Adenocarcinoma of left lung, stage 4: Status: Acute (6) Pleural effusion: Status: Acute Assessment and Plan: ?75-year-old female patient with recurrent? stage IV lung cancer, currently receiving chemotherapy, recurrent pleural effusion s/p PleurX catheter, chronic AFIB on Eliquis, she presented with weakness and decrease apetite since last chemo and is now in AFIB with RVR 1. Chronic AFIB with RVR-- RVR resolved, continue oral dilt for rate controlle, eliquis for stroke prevention 2. Chronic diastolic heart failure, no symptoms--continue oral Lasix 3. Hypothyroidism--continue levothyroxine. 4.? Hyperlipidemia --continue statin 5. Recurrent pleural effusion--Drain via Pleurx Catheter 6/weakness, poor apetite, moderate protein calory malnutrition--supplement, PT recommends rehab DVT prophylaxis,, eliquis Quality Stroke Does the patient have a stroke diagnosis?: No VTE Prior VTE?: No VTE Risk Level:: Medical - moderate - high VTE Device Contraindication: Treatment Not Indicated VTE Drug Contraindication: N/A - Med Ordered
--- NOTE | 2021-07-24 19:49 | P.EN_ITS ---
Event Note Date of Service: 08/05/21 Event Note: AFib with RVR: Patient asymptomatic. Patient is diltiazem drip at maximum dose-patient is still tachycardic to 110- 125; Blood pressure on the soft side 86/44 Notified Cardiology Will give dig loading;
--- NOTE | 2021-07-24 19:55 | PC.NURSE ---
Pt on Cardizem drip 125mg/125ml running at 15 mg/ml. Pt had a 6 beat VT 17:30. Notified MD. Pt manual BP 96/48. Will monitor and encourage PO fluid intake.
[2021-07-24] MEDS: Digoxin 0.25 MG TABLET 0.5 MG PO (20:28)
[2021-07-24] MEDS: Aspirin Enteric Coated 81 MG TABLET.DR PO (20:29)
--- NOTE | 2021-07-24 22:43 | PC.NURSE ---
pt c/o 03/23 nonradiating pain to lower back. reports pain is chronic. contacted MD for pain medication order. no new orders at this time. repositioned patient and applied heat packs to lower back with some relief
[2021-07-25] VITALS (10 sets, daily range): BP systolic 70–98; BP diastolic 42–58; PULSE 52–116; RESP 18–20; TEMP 36.4–37; O2SAT 94–98
[2021-07-25] MEDS: dilTIAZem HCL 125 MG in 0.9 % Sodium Chloride 100 ML 15 MG IVCONT (03:07)
[2021-07-25] MEDS: 0.9 % Sodium Chloride 500 ML 250 ML IV (04:15)
[2021-07-25] MEDS: Levothyroxine Sodium 112 MCG TABLET PO (05:12)
[2021-07-25] MEDS: Digoxin 0.25 MG TABLET PO (05:12)
[2021-07-25] MEDS: Apixaban 5 MG TABLET PO ×2 (08:56→20:47)
[2021-07-25] MEDS: Folic Acid 1 MG TABLET PO (08:56)
[2021-07-25] MEDS: Furosemide 40 MG TABLET 80 MG PO (08:56)
[2021-07-25] MEDS: Multivitamin TABLET 1 TAB PO (08:56)
[2021-07-25] MEDS: Metoprolol Succinate ER 50 MG TAB.ER.24H PO (08:56)
[2021-07-25] MEDS: Calcium + Vitamin D 250 MG TABLET 500 MG PO (08:56)
[2021-07-25] MEDS: 0.9 % Sodium Chloride Flush 3 ML SYRINGE IVFLUSH (09:04)
[2021-07-25] MEDS: 0.9 % Sodium Chloride 1,000 ML 100 ML IVCONT ×2 (09:16→20:11)
--- NOTE | 2021-07-25 10:42 | P.CONCA_ITS ---
History of Present Illness History of Present Illness Date of Service: 07/25/21 Chief complaint: AFIB with RVR, weakness Narrative: This is a cardiology consultation regarding atrial fibrillation. She has a history of adenocarcinoma of the lung. She was recently in the hospital for shortness of breath suspected to be from some combination of pulmonary issues and heart failure/pleural effusion. This time, she is in the ER for unable to manage herself, increasing weakness etc.. She was supposed to be transferred to short-term rehab but apparently she was noted to be in with atrial fibrillation and rapid rate and hence admitted. She states that she was taking all the medications but apparently not taking her digoxin at home. Not clear why. Shortness of breath seems to be just about her baseline which is in fact quite severe. No anginal-type symptoms. No clear palpitations. Review of Systems Review of Systems: Yes all other systems are reviewed and are negative Cardiovascular: Cardiovascular: Reports as per HPI, Reports no additional c ardiovascular complaints, Denies acrocyanosis, Denies cool extremities, Denies painful fingertips, Denies chest pain, Denies chest pain at rest, Denies diaphoresis, Denies syncope, Denies irregular heart rhythm, Denies claudication, Denies leg edema, Denies lightheadedness, Denies palpitations and Reports dyspnea Respiratory: Respiratory: Reports dyspnea Neurologic: Denies syncope Endocrine: Endocrine: Denies palpitations [facility] Past Medical History Medical History Acute on chronic diastolic (congestive) heart failure Adenocarcinoma of left lung, stage 4 (~01/2021) Adenocarcinoma of left lung, stage 4 Atrial fibrillation (~09/2019) Back pain CAD (coronary artery disease) CHF (congestive heart failure) COPD (chronic obstructive pulmonary disease) Heart failure History of KS (myocardial infarction) (~2002) History of pleural effusion (~09/2019) Hypertension Hypothyroidism Malignant neoplasm of lower lobe, left bronchus or lung (~01/2021) Osteoporosis Persistent atrial fibrillation Personal history of nicotine dependence Pleural effusion Pneumonia Pulmonary nodules Family History Family History Mother CAD (coronary artery disease) Surgical History Surgical History History of basal cell carcinoma excision (~04/02/98) History of cardioversion (~12/07/19) History of heart artery stent History of lung surgery (~01/22/21) Social History Social History Household Members: None Housing: Apartment Do you presently have visiting nurse or other home services: No Alcohol intake: unknown Patient Tobacco Use Status: Former Tobacco user Tobacco use type: Cigarette Currently Displaying Signs/Symptoms of Drug Intoxication Withdrawal: No Advance Directives: No Do you have thoughts of harming others: None Do you have a plan to hurt others: No Plan service: No Current occupational status: retired Meds Allergies Allergy/AdvReac Type Severity Reaction Status Date / Time codeine [CODEINE] Allergy Severe SEVERE Verified 07/22/21 15:54 HEADACHE latex [LATEX] Allergy Intermediate RASH/HIVES Verified 07/22/21 15:54 atorvastatin [From Lipitor] AdvReac Muscle Pain Verified 07/22/21 15:54 Active Medications: Current Medications Acetaminophen (Acetaminophen 325 Mg Tablet) 650 mg PO Q6H PRN PRN Reason: Pain, Mild (Pain Scale 1-3) Albuterol Sulfate (Albuterol Sulfate 90 Mcg 8 Gm Inhaler) 2 puff INHALE Q4H PRN PRN Reason: Shortness Of Breath Apixaban (Apixaban 5 Mg Tablet) 5 mg PO BID [facility] Last Admin: 07/25/21 08:56 Dose: 5 mg Documented by: Aspirin (Aspirin Enteric Coated 81 Mg Tablet.) 81 mg PO BEDTIME [facility] Last Admin: 07/24/21 20:29 Dose: 81 mg Documented by: Calcium Carbonate/Cholecalciferol (Calcium + Vitamin D 250 Mg Tablet) 500 mg PO DAILY [facility] Last Admin: 07/25/21 08:56 Dose: 500 mg Documented by: Folic Acid (Folic Acid 1 Mg Tablet) 1 mg PO DAILY [facility] Last Admin: 07/25/21 08:56 Dose: 1 mg Documented by: Furosemide (Furosemide 40 Mg Tablet) 80 mg PO DAILY [facility]; Protocol Last Admin: 07/25/21 08:56 Dose: 80 mg Documented by: Diltiazem HCl 125 mg/ Sodium (Chloride) 125 mls @ 0 mls/hr IVCONT .Q0M [facility]; Protocol Last Titration: 07/25/21 04:22 Dose: 0 mg/hr, 0 mls/hr Documented by: Sodium Chloride (Ns) 1,000 mls @ 100 mls/hr IVCONT .Q10H [facility] Last Admin: 07/25/21 09:16 Dose: 100 mls/hr Documented by: Levothyroxine Sodium (Levothyroxine Sodium 112 Mcg Tablet) 112 mcg PO DAILY@0600 [facility] Last Admin: 07/25/21 05:12 Dose: 112 mcg Documented by: Metoprolol Succinate (Metoprolol Succinate Er 50 Mg Tab.Er.24h) 50 mg PO DAILY [facility]; Protocol Last Admin: 07/25/21 08:56 Dose: 50 mg Documented by: Multivitamins/Vitamin C (Multivitamin Tablet) 1 tab PO DAILY [facility] Last Admin: 07/25/21 08:56 Dose: 1 tab Documented by: Patient Own Medication ( Rosuvastatin 20 Mg Tablet) 1 each PO BEDTIME [facility] Last Admin: 07/24/21 20:29 Dose: 1 each Documented by: Pharmacy Consult (Consult Rx Perform Med Rec) 1 each MISCELLANE ONCE PRN PRN Reason: Consult order Sodium Chloride (0.9 % Sodium Chloride Flush 3 Ml Syringe) 3 ml IVFLUSH QSHIFT [facility] Last Admin: 07/25/21 09:04 Dose: 3 ml Documented by: Home Medications Medication Instructions Recorded Confirmed Last Taken Type apixaban 5 mg tablet (Eliquis) 5 mg PO BID 11/30/20 07/23/21 07/22/21 History aspirin 81 mg tablet,delayed 81 mg PO DAILY 11/30/20 07/23/21 07/22/21 History release rosuvastatin 20 mg tablet 20 mg PO DAILY 11/30/20 07/23/21 07/22/21 History diltiazem HCl 240 mg 240 mg PO BEDTIME 02/08/21 07/23/21 07/21/21 History capsule,extended release 24 hr, controlled levothyroxine 112 mcg tablet 112 mcg PO DAILY@0630 02/08/21 07/23/21 07/22/21 History qxajmuem-pcp-hyktl acid 0.4 1 tab PO DAILY 02/08/21 07/23/21 07/22/21 History mg-lycopene 300 mcg-lutein 250 mcg tablet (Centrum Silver) albuterol sulfate 90 mcg/actuation 2 puff PO Q4H PRN 05/21/21 07/23/21 Unknown History breath activated powder inhaler (ProAir RespiClick) metoprolol succinate 50 mg 1 tab PO DAILY 05/21/21 07/23/21 07/22/21 History tablet,extended release 24 hr furosemide 40 mg tablet 80 mg PO DAILY 06/13/21 07/23/21 07/22/21 History diltiazem HCl 120 mg 120 mg PO DAILY 07/23/21 07/23/21 07/22/21 History capsule,extended release 24 hr, controlled (DILT-XR) Physical Exam Vital Signs: Vital Signs: Last Vital Signs Temp 97.8 F 07/25/21 07:24 Pulse 112 H 07/25/21 08:56 Resp 18 07/25/21 07:24 BP 98/52 L 07/25/21 08:56 Pulse Ox 95 07/25/21 07:24 Body Mass Index 27.2 Const: Other: short of breath, pursed lip breathing General: cooperative HENMT: Other: Unremarkable Neck: Neck: Yes normal visual inspection Chest: Chest palpation & inspection: normal inspection of the chest Resp: Auscultation: wheezes and diminished lung sounds Cardio: Jugular venous distension: no JVD Palpation: normal PMI Heart sounds: S1 normal heart sound present, S2 normal heart sound present, no gallops, no murmurs and no rubs GI: Palpation (GI): Soft to palpation Back/Spine/Pelvis: Other: unremarkable Skin: General skin exam: no rashes or lesions noted Neuro: Cranial nerves: Yes Other cranial nerve findings present Extrem: General: Yes pedal edema (trace-1+ edema) Psych: Mental Status: other Results Labs and Meds Result diagrams: 07/22/21 20:18 07/22/21 20:18 ECG Interpretation: EKG with atrial fibrillation at 136/Min with nonspecific ST-T changes. Assessment and Plan (1) Atrial fibrillation with rapid ventricular response: Status: Acute (2) Adenocarcinoma of left lung, stage 4: Status: Acute (3) Arterial hypotension: Status: Acute Atrial fibrillation with poorly controlled rates most likely driven by underlying pulmonary issues and very low pulmonary reserve. Due to low blood p ressure, unable to titrate her medications. May resume the digoxin. Otherwise, due to advanced lung disease, not a good candidate for any major invasive procedures like AV node ablation/pacing. Need to discuss goals of care with patient. Procedures Date of Service Date of Service: 07/25/21
--- NOTE | 2021-07-25 11:06 | HO.PM.IMPN ---
Subjective Subjective Date of Service: 07/25/21 Interval History: f/u on afib with rvr, has persistent tachycardia and BP was low this morning, SBP as low as 70 and she feels exhausted, no fever Review of Systems no sob, no chest pain or palpitation, no fever Physical Exam Vital Signs: Vital Signs: Last Vital Signs Temp 97.8 F 07/25/21 07:24 Pulse 112 H 07/25/21 08:56 Resp 18 07/25/21 07:24 BP 98/52 L 07/25/21 08:56 Pulse Ox 95 07/25/21 07:24 Body Mass Index 27.2 Const: Other: General: AO X 3, no acute distress, tired looking Resp: CTA bilateral CVS: S1,S2, iregular, 1+ leg edema GI: +BS, NT, no distention Skin: No rash Neuro: motor grossly intact Psych: appropriate affect Objective Data Active Medications Acetaminophen (Acetaminophen 325 Mg Tablet) 650 mg PO Q6H PRN PRN Reason: Pain, Mild (Pain Scale 1-3) Albuterol Sulfate (Albuterol Sulfate 90 Mcg 8 Gm Inhaler) 2 puff INHALE Q4H PRN PRN Reason: Shortness Of Breath Apixaban (Apixaban 5 Mg Tablet) 5 mg PO BID [facility] Last Admin: 07/25/21 08:56 Dose: 5 mg Documented by: TISHA Aspirin (Aspirin Enteric Coated 81 Mg Tablet.) 81 mg PO BEDTIME [facility] Last Admin: 07/24/21 20:29 Dose: 81 mg Documented by: JOSEFA Calcium Carbonate/Cholecalciferol (Calcium + Vitamin D 250 Mg Tablet) 500 mg PO DAILY [facility] Last Admin: 07/25/21 08:56 Dose: 500 mg Documented by: TISHA Folic Acid (Folic Acid 1 Mg Tablet) 1 mg PO DAILY [facility] Last Admin: 07/25/21 08:56 Dose: 1 mg Documented by: TISHA Furosemide (Furosemide 40 Mg Tablet) 80 mg PO DAILY [facility]; Protocol Last Admin: 07/25/21 08:56 Dose: 80 mg Documented by: TISHA Diltiazem HCl 125 mg/ Sodium (Chloride) 125 mls @ 0 mls/hr IVCONT .Q0M [facility]; Protocol Last Titration: 07/25/21 04:22 Dose: 0 mg/hr, 0 mls/hr Documented by: JOSEFA Sodium Chloride (Ns) 1,000 mls @ 100 mls/hr IVCONT .Q10H [facility] Last Admin: 07/25/21 09:16 Dose: 100 mls/hr Documented by: TISHA Levothyroxine Sodium (Levothyroxine Sodium 112 Mcg Tablet) 112 mcg PO DAILY@0600 [facility] Last Admin: 07/25/21 05:12 Dose: 112 mcg Documented by: JOSEFA Metoprolol Succinate (Metoprolol Succinate Er 50 Mg Tab.Er.24h) 50 mg PO DAILY [facility]; Protocol Last Admin: 07/25/21 08:56 Dose: 50 mg Documented by: TISHA Multivitamins/Vitamin C (Multivitamin Tablet) 1 tab PO DAILY [facility] Last Admin: 07/25/21 08:56 Dose: 1 tab Documented by: TISHA Patient Own Medication ( Rosuvastatin 20 Mg Tablet) 1 each PO BEDTIME [facility] Last Admin: 07/24/21 20:29 Dose: 1 each Documented by: JOSEFA Pharmacy Consult (Consult Rx Perform Med Rec) 1 each MISCELLANE ONCE PRN PRN Reason: Consult order Sodium Chloride (0.9 % Sodium Chloride Flush 3 Ml Syringe) 3 ml IVFLUSH QSHIFT [facility] Last Admin: 07/25/21 09:04 Dose: 3 ml Documented by: TISHA Labs CBC & Chem 7: 07/22/21 20:18 07/22/21 20:18 Assessment and Plan (1) Adult failure to thrive: Status: Acute (2) Weakness: Status: Acute (3) Heart failure: Status: Acute Assessment and Plan: ?75-year-old female patient with recurrent? stage IV lung cancer, currently receiving chemotherapy, recurrent pleural effusion s/p PleurX catheter, chronic AFIB on Eliquis, she presented with weakness and decrease apetite since last chemo and is now in AFIB with RVR 1. Chronic AFIB with RVR-- management challenge due to low BP -continue cardizem when blood pressure is controlled, started on digoxin -poor candidate for invasive intervention due to poor lung function -continue anticoagulation with Apixiban continue oral dilt for rate controlle, eliquis for stroke prevention 2. Chronic diastolic heart failure, no symptoms--continue oral Lasix if BP ok 3. Hypothyroidism--continue levothyroxine. 4.? Hyperlipidemia --continue statin 5. Recurrent pleural effusion--Drain via Pleurx Catheter today 6/weakness, poor apetite, moderate protein calory malnutrition--supplement, PT recommends rehab 7/Hypotension --due to AFIB with RVR and poor decrease intravascular volume from plerual effusion, NS to keep BP up DVT prophylaxis,arthur Overall prognosis is poor and will discuss goals of care with her today Quality Stroke Does the patient have a stroke diagnosis?: No VTE Prior VTE?: No VTE Risk Level:: Medical - moderate - high VTE Device Contraindication: Treatment Not Indicated VTE Drug Contraindication: N/A - Med Ordered
[2021-07-25 11:59] LABS: Anion Gap 11 (12-20); Blood Urea Nitrogen 21 mg/dL (9-16); Calcium 7.1 mg/dL (8.4-10.2); Carbon Dioxide 27 mmol/L (22-29); Chloride 104 mmol/L (96-108); Estimated Glomerular Filt Rate > 60; Glucose Random 107 mg/dL (60-115); Magnesium 1.6 mg/dL (1.6-2.6); Potassium 3.7 mmol/L (3.3-5.1); Sodium 138 mmol/L (135-145)
--- NOTE | 2021-07-25 15:07 | PC.NURSE ---
Pleurex Cath 1000 mL drained; pt noted it is drained twice weekly. On assessment , sutures were noted to be not intact. Pt said [facility] is aware since Thursday.
[2021-07-25] MEDS: Aspirin Enteric Coated 81 MG TABLET.DR PO (20:47)
[2021-07-26] VITALS (16 sets, daily range): BP systolic 82–120; BP diastolic 48–68; PULSE 73–168; RESP 18–20; TEMP 36.4–36.9; O2SAT 94–96
--- NOTE | 2021-07-26 03:26 | PC.NURSE ---
pt states she would like a stool softener due to feeling constipated. MD notified, no new orders at this time. Given prune juice while waiting for new order. She did have a small bm 07/24.
[2021-07-26] MEDS: Acetaminophen 325 MG TABLET 650 MG PO (03:50)
--- NOTE | 2021-07-26 04:07 | PC.NURSE ---
pt went into afib rvr sustaining 140-160 for approximately 10 minutes. pt asymptomatic, states she just feels tired. bp manual 86/48. MD notified, instructed to not restart cardizem gtt. If hr continues to sustain >130 to notify again. Monitoring patient closely.
[2021-07-26] MEDS: 0.9 % Sodium Chloride 1,000 ML 100 ML IVCONT ×2 (05:18→14:39)
[2021-07-26] MEDS: Levothyroxine Sodium 112 MCG TABLET PO (06:35)
[2021-07-26] MEDS: Metoprolol Tartrate 5 MG/5 ML VIAL IVPUSH (06:43)
--- NOTE | 2021-07-26 06:45 | PC.NURSE ---
pt went into afib rvr with hr into the 170's while resting in bed. md notified. 5mg lopressor ivp ordered. bp currently 82/52. Medication appeared to have good effect as hr is now 112-125.
[2021-07-26] MEDS: Digoxin 0.125 MG TABLET PO (07:58)
[2021-07-26] MEDS: Calcium + Vitamin D 250 MG TABLET 500 MG PO (07:58)
[2021-07-26] MEDS: Metoprolol Succinate ER 50 MG TAB.ER.24H PO (07:59)
[2021-07-26] MEDS: Folic Acid 1 MG TABLET PO (07:59)
[2021-07-26] MEDS: Multivitamin TABLET 1 TAB PO (07:59)
[2021-07-26] MEDS: Apixaban 5 MG TABLET PO ×2 (07:59→19:41)
[2021-07-26] MEDS: 0.9 % Sodium Chloride Flush 3 ML SYRINGE IVFLUSH (07:59)
--- NOTE | 2021-07-26 08:15 | P.PNIM_ITS ---
Subjective Subjective Date of Service: 07/26/21 Interval History: f/u on afib with rvr, persistent tachycardia complicated by low blood pressure, she says however that she feels better today Review of Systems no sob, no chest pain or palpitation, no fever Physical Exam Vital Signs: Vital Signs: Last Vital Signs Temp 97.9 F 07/26/21 08:00 Pulse 112 H 07/26/21 08:00 Resp 20 07/26/21 08:00 BP 88/68 L 07/26/21 07:59 Pulse Ox 96 07/26/21 08:00 Body Mass Index 27.2 Const: Other: General: AO X 3, no acute distress, tired looking Resp: CTA bilateral CVS: S1,S2, iregular, 1+ leg edema GI: +BS, NT, no distention Skin: No rash Neuro: motor grossly intact Psych: appropriate affect Objective Data Active Medications Acetaminophen (Acetaminophen 325 Mg Tablet) 650 mg PO Q6H PRN PRN Reason: Pain, Mild (Pain Scale 1-3) Last Admin: 07/26/21 03:50 Dose: 650 mg Documented by: JOSEFA Albuterol Sulfate (Albuterol Sulfate 90 Mcg 8 Gm Inhaler) 2 puff INHALE Q4H PRN PRN Reason: Shortness Of Breath Apixaban (Apixaban 5 Mg Tablet) 5 mg PO BID [facility] Last Admin: 07/26/21 07:59 Dose: 5 mg Documented by: BI Aspirin (Aspirin Enteric Coated 81 Mg Tablet.) 81 mg PO BEDTIME [facility] Last Admin: 07/25/21 20:47 Dose: 81 mg Documented by: JOSEFA Calcium Carbonate/Cholecalciferol (Calcium + Vitamin D 250 Mg Tablet) 500 mg PO DAILY [facility] Last Admin: 07/26/21 07:58 Dose: 500 mg Documented by: BI Digoxin (Digoxin 0.125 Mg Tablet) 0.125 mg PO DAILY [facility] Last Admin: 07/26/21 07:58 Dose: 0.125 mg Documented by: BI Folic Acid (Folic Acid 1 Mg Tablet) 1 mg PO DAILY [facility] Last Admin: 07/26/21 07:59 Dose: 1 mg Documented by: BI Furosemide (Furosemide 40 Mg Tablet) 80 mg PO DAILY [facility]; Protocol Last Admin: 07/26/21 07:59 Dose: Not Given Documented by: BI Non-Admin Reason: md order to hold Diltiazem HCl 125 mg/ Sodium (Chloride) 125 mls @ 0 mls/hr IVCONT .Q0M [facility]; Protocol Last Titration: 07/25/21 04:22 Dose: 0 mg/hr, 0 mls/hr Documented by: JOSEFA Sodium Chloride (Ns) 1,000 mls @ 100 mls/hr IVCONT .Q10H [facility] Last Admin: 07/26/21 05:18 Dose: 100 mls/hr Documented by: JOSEFA Levothyroxine Sodium (Levothyroxine Sodium 112 Mcg Tablet) 112 mcg PO DAILY@0600 [facility] Last Admin: 07/26/21 06:35 Dose: 112 mcg Documented by: JOSEFA Metoprolol Succinate (Metoprolol Succinate Er 50 Mg Tab.Er.24h) 50 mg PO DAILY [facility]; Protocol Last Admin: 07/26/21 07:59 Dose: 50 mg Documented by: BI Multivitamins/Vitamin C (Multivitamin Tablet) 1 tab PO DAILY [facility] Last Admin: 07/26/21 07:59 Dose: 1 tab Documented by: BI Patient Own Medication ( Rosuvastatin 20 Mg Tablet) 1 each PO BEDTIME [facility] Last Admin: 07/25/21 20:47 Dose: 1 each Documented by: JOSEFA Pharmacy Consult (Consult Rx Perform Med Rec) 1 each MISCELLANE ONCE PRN PRN Reason: Consult order Sodium Chloride (0.9 % Sodium Chloride Flush 3 Ml Syringe) 3 ml IVFLUSH QSHIFT [facility] Last Admin: 07/26/21 07:59 Dose: 3 ml Documented by: BI Labs CBC & Chem 7: 07/22/21 20:18 07/25/21 11:29 Labs: Laboratory Results - last 24 hr 07/25/21 11:29 Anion Gap 11 L Estim Creat Clear Calc 57.0 Estimated GFR > 60 Random Glucose 107 Calcium 7.1 L Magnesium 1.6 Assessment and Plan (1) Adult failure to thrive: Status: Acute (2) Weakness: Status: Acute (3) Heart failure: Status: Acute Assessment and Plan: 75-year-old female patient with recurrent? stage IV lung cancer, currently receiving chemotherapy, recurrent pleural effusion s/p PleurX catheter, chronic AFIB on Eliquis, she presented with weakness and decrease apetite since last chemo and is now in AFIB with RVR 1. Chronic AFIB with RVR-- management challenge due to low BP -continue cardizem when blood pressure is controlled, continue dig -poor candidate for invasive intervention due to poor lung function -continue anticoagulation with Apixiban c-eliquis for stroke prevention -will discuss feasibility of cardioversion with cardiology 2. Chronic diastolic heart failure, no symptoms--continue oral Lasix if BP ok 3. Hypothyroidism--continue levothyroxine. 4.? Hyperlipidemia --continue statin 5. Recurrent pleural effusion--Drain via Pleurx Catheter 2 to 3 week 6/weakness, poor apetite, moderate protein calory malnutrition--supplement, PT recommends rehab 7/Hypotension --due to AFIB with RVR and poor decrease intravascular volume from plerual effusion, NS to keep up, low BP not d/t sepsis DVT prophylaxis,, eliquis Overall prognosis is poor and will discuss goals of care with her today Quality Stroke Does the patient have a stroke diagnosis?: No VTE Prior VTE?: No VTE Risk Level:: Medical - moderate - high VTE Device Contraindication: Treatment Not Indicated VTE Drug Contraindication: N/A - Med Ordered
--- NOTE | 2021-07-26 10:16 | P.PNCA_ITS ---
Subjective Subjective Date of Service: 07/26/21 Interval history: No new complaints. Shortness of breath at baseline. Review of Systems Review of Systems Yes all other systems are reviewed and are negative Cardiovascular: Reports as per HPI, Reports no additional cardiovascular complaints, Denies acrocyanosis, Denies cool extremities, Denies painful fingertips, Denies chest pain, Denies chest pain at rest, Denies diaphoresis, Denies syncope, Denies irregular heart rhythm, Denies claudication, Denies leg edema, Denies lightheadedness, Denies palpitations and Reports dyspnea Respiratory: Reports dyspnea Denies syncope Endocrine: Denies palpitations Physical Exam Vital Signs: Last Vital Signs Temp 97.9 F 07/26/21 08:00 Pulse 112 H 07/26/21 08:00 Resp 20 07/26/21 08:00 BP 88/62 L 07/26/21 08:29 Pulse Ox 96 07/26/21 08:00 Body Mass Index 27.2 Const Other: short of breath, pursed lip breathing General: cooperative HENIN Other: Unremarkable Neck Neck: Yes normal visual inspection Chest Chest palpation & inspection: normal inspection of the chest Resp Auscultation: wheezes and diminished lung sounds Cardio Jugular venous distension: no JVD Palpation: normal PMI Heart sounds: S1 normal heart sound present, S2 normal heart sound present, no gallops, no murmurs and no rubs GI Palpation (GI): Soft to palpation Back/Spine/Pelvis Other: unremarkable Skin General skin exam: no rashes or lesions noted Neuro Cranial nerves: Yes Other cranial nerve findings present Extrem General: Yes pedal edema (trace-1+ edema) Psych Mental Status: other Objective Labs and Meds Result diagrams: 07/22/21 20:18 07/25/21 11:29 Lab results: Laboratory Results - last 24 hr 07/25/21 11:29 Sodium 138 Potassium 3.7 Chloride 104 Carbon Dioxide 27 Anion Gap 11 L BUN 21 H Creatinine 0.82 Estim Creat Clear Calc 57.0 Estimated GFR > 60 Random Glucose 107 Calcium 7.1 L Magnesium 1.6 Progress Note: A&P Assessment and plan (1) Atrial fibrillation with rapid ventricular response: Status: Acute (2) Adenocarcinoma of left lung, stage 4: Status: Acute (3) Arterial hypotension: Status: Acute Assessment and Plan: Atrial fibrillation with poorly controlled rates most likely driven by underlying pulmonary issues and very low pulmonary reserve. Due to low blood pressure, unable to titrate her medications. Discussed with Dr. Moise. She has poor prognosis from the lung cancer itself. We may use amiodarone for rate control purposes. Otherwise will switch the metoprolol to calcium channel blockers. On digoxin/Eliquis. Fall Risk Details Current Medications: Current Medications Acetaminophen (Acetaminophen 325 Mg Tablet) 650 mg PO Q6H PRN PRN Reason: Pain, Mild (Pain Scale 1-3) Last Admin: 07/26/21 03:50 Dose: 650 mg Documented by: Albuterol Sulfate (Albuterol Sulfate 90 Mcg 8 Gm Inhaler) 2 puff INHALE Q4H PRN PRN Reason: Shortness Of Breath Apixaban (Apixaban 5 Mg Tablet) 5 mg PO BID [facility] Last Admin: 07/26/21 07:59 Dose: 5 mg Documented by: Aspirin (Aspirin Enteric Coated 81 Mg Tablet.) 81 mg PO BEDTIME [facility] Last Admin: 07/25/21 20:47 Dose: 81 mg Documented by: Calcium Carbonate/Cholecalciferol (Calcium + Vitamin D 250 Mg Tablet) 500 mg PO DAILY [facility] Last Admin: 07/26/21 07:58 Dose: 500 mg Documented by: Digoxin (Digoxin 0.125 Mg Tablet) 0.125 mg PO DAILY [facility] Last Admin: 07/26/21 07:58 Dose: 0.125 mg Documented by: Folic Acid (Folic Acid 1 Mg Tablet) 1 mg PO DAILY [facility] Last Admin: 07/26/21 07:59 Dose: 1 mg Documented by: Furosemide (Furosemide 40 Mg Tablet) 80 mg PO DAILY [facility]; Protocol Last Admin: 07/26/21 07:59 Dose: Not Given Documented by: Diltiazem HCl 125 mg/ Sodium (Chloride) 125 mls @ 0 mls/hr IVCONT .Q0M [facility]; Protocol Last Titration: 07/25/21 04:22 Dose: 0 mg/hr, 0 mls/hr Documented by: Sodium Chloride (Ns) 1,000 mls @ 100 mls/hr IVCONT .Q10H [facility] Last Admin: 07/26/21 05:18 Dose: 100 mls/hr Documented by: Levothyroxine Sodium (Levothyroxine Sodium 112 Mcg Tablet) 112 mcg PO DAILY@0600 [facility] Last Admin: 07/26/21 06:35 Dose: 112 mcg Documented by: Metoprolol Succinate (Metoprolol Succinate Er 50 Mg Tab.Er.24h) 50 mg PO DAILY [facility]; Protocol Last Admin: 07/26/21 07:59 Dose: 50 mg Documented by: Multivitamins/Vitamin C (Multivitamin Tablet) 1 tab PO DAILY [facility] Last Admin: 07/26/21 07:59 Dose: 1 tab Documented by: Patient Own Medication ( Rosuvastatin 20 Mg Tablet) 1 each PO BEDTIME [facility] Last Admin: 07/25/21 20:47 Dose: 1 each Documented by: Pharmacy Consult (Consult Rx Perform Med Rec) 1 each MISCELLANE ONCE PRN PRN Reason: Consult order Sodium Chloride (0.9 % Sodium Chloride Flush 3 Ml Syringe) 3 ml IVFLUSH QSHIFT [facility] Last Admin: 07/26/21 07:59 Dose: 3 ml Documented by: Time Spent With Patient Time: Total time spent is greater than 50% in coordination of care (as documented) at patient's floor/unit and/or counseling patient: Time with patient: less than 15 minutes Progress Note: Quality Stroke Does the patient have a stroke diagnosis?: No Procedures Date of Service Date of Service: 07/26/21
--- NOTE | 2021-07-26 10:51 | MHC.CLN ---
Addendum entered by Velia Novak, KACY 07/26/21 13:14: AGREE WITH PROVIDER'S ASSESSMENT BELOW Original Note: F/U PT'S DIET WAS SWITCHED TO NPO THIS MORNING PT STATES PO INTAKE STILL HAS NOT BEEN GOOD DUE TO METALLIC TASTE FROM CHEMOTHERAPY PT HAS YET TO TRY GLUCERNA SUPPLEMENT BUT SAID SHE IS WILLING GLUCERNA SUPPLEMENT TID WOULD PROVIDE 711 KCALS AND 30 GRAMS PROTEIN MONITOR PO INTAKE CLOSELY AND SUPPLEMENT ACCEPTANCE
[2021-07-26] MEDS: polyethylene glycoL 3350 17 GM POWD.PACK PO (12:00)
[2021-07-26] MEDS: Amiodarone HCL 200 MG TABLET 400 MG PO ×2 (12:00→19:41)
[2021-07-26] MEDS: Docusate Sodium 100 MG CAPSULE PO ×2 (12:00→19:41)
--- NOTE | 2021-07-26 13:47 | MHC.CM.PN ---
per rounds pt has low blood pressure and may be cardio version no dc at this time dc plan remanins placement ?CHUN MCKINNEY
[2021-07-26] MEDS: dilTIAZem HCL 30 MG TABLET PO ×3 (14:39→19:41)
[2021-07-26] MEDS: Lactulose 20 GM/30 ML SOLUTION PO (19:41)
[2021-07-26] MEDS: Aspirin Enteric Coated 81 MG TABLET.DR PO (19:41)
[2021-07-27] VITALS (13 sets, daily range): BP systolic 80–139; BP diastolic 49–71; PULSE 88–126; RESP 16–30; TEMP 36.4–37; O2SAT 95–97
[2021-07-27] MEDS: 0.9 % Sodium Chloride 1,000 ML 100 ML IVCONT (00:47)
--- NOTE | 2021-07-27 03:34 | PC.NURSE ---
Patient had a 5 beat of vtach at 0300 and 0325. Pt is asymptomatic. Dr. Molina notified via [facility].
[2021-07-27] MEDS: Levothyroxine Sodium 112 MCG TABLET PO (04:45)
[2021-07-27] MEDS: Melatonin 3 MG TABLET 6 MG PO (04:45)
[2021-07-27 08:26] LABS: Hematocrit 24.1 % (37.0-47.0); Mean Corpuscular HGB Conc 33.2 g/dl (31.0-35.0); Mean Corpuscular Hemoglobin 32.3 pg (27.0-33.0); Mean Corpuscular Volume 97.2 fL (80.0-98.0); Mean Platelet Volume 12.3 fL (9.4-12.3); Red Blood Count 2.48 X10*6/uL (4.20-5.50); Red Cell Distribution Width 22.7 % (11.0-16.0)
[2021-07-27 08:32] LABS: White Blood Count 2.4 X10*3/uL (4.8-10.8)
[2021-07-27 08:52] LABS: Platelet Count 83 X10*3/uL (160-400)
[2021-07-27 09:01] LABS: Digoxin 1.1 ng/mL (0.8-2.0)
[2021-07-27 09:11] LABS: Anion Gap 13 (12-20); Blood Urea Nitrogen 16 mg/dL (9-16); Carbon Dioxide 20 mmol/L (22-29); Chloride 112 mmol/L (96-108); Creatinine Clr Calc Pharmacy 62.3; Estimated Glomerular Filt Rate > 60; Glucose Random 126 mg/dL (60-115); Potassium 3.6 mmol/L (3.3-5.1); Sodium 141 mmol/L (135-145)
[2021-07-27] MEDS: dilTIAZem HCL 30 MG TABLET PO ×4 (09:14→20:06)
[2021-07-27] MEDS: Multivitamin TABLET 1 TAB PO (09:15)
[2021-07-27] MEDS: Apixaban 5 MG TABLET PO ×2 (09:15→20:07)
[2021-07-27] MEDS: Amiodarone HCL 200 MG TABLET 400 MG PO ×2 (09:15→20:07)
[2021-07-27] MEDS: Digoxin 0.125 MG TABLET PO (09:16)
[2021-07-27] MEDS: Calcium + Vitamin D 250 MG TABLET 500 MG PO (09:16)
[2021-07-27] MEDS: Folic Acid 1 MG TABLET PO (09:16)
[2021-07-27 09:37] LABS: Calcium 6.4 mg/dL (8.4-10.2)
--- NOTE | 2021-07-27 10:51 | HO.PM.IMPN ---
Subjective Subjective Date of Service: 07/27/21 Interval History: f/u on afib with rvr, persistent intermittent tachycardia, low blood pressure this morning, improved on repeat.. c/o SOB, repeat CXR--Reticular nodular disease, left greater than right, again questionable for lymphangitic tumor spread.? Superimposed CHF should be considered. Review of Systems + sob, no chest pain or palpitation, no fever Physical Exam Vital Signs: Vital Signs: Last Vital Signs Temp 97.5 F 07/27/21 07:49 Pulse 126 H 07/27/21 09:16 Resp 22 H 07/27/21 07:49 BP 132/68 07/27/21 09:15 Pulse Ox 97 07/27/21 09:06 Body Mass Index 27.2 Const: Other: General: AO X 3, no acute distress, anxious Resp: rales at bases CVS: S1,S2, iregular, 2+ leg edema GI: +BS, NT, no distention Skin: No rash Neuro: motor grossly intact Psych: appropriate affect Objective Data Active Medications Acetaminophen (Acetaminophen 325 Mg Tablet) 650 mg PO Q6H PRN PRN Reason: Pain, Mild (Pain Scale 1-3) Last Admin: 07/26/21 03:50 Dose: 650 mg Documented by: JOSEFA Albuterol Sulfate (Albuterol Sulfate 90 Mcg 8 Gm Inhaler) 2 puff INHALE Q4H PRN PRN Reason: Shortness Of Breath Amiodarone HCl (Amiodarone Hcl 200 Mg Tablet) 400 mg PO BID [facility] Last Admin: 07/27/21 09:15 Dose: 400 mg Documented by: RACHEL Apixaban (Apixaban 5 Mg Tablet) 5 mg PO BID [facility] Last Admin: 07/27/21 09:15 Dose: 5 mg Documented by: RACHEL Aspirin (Aspirin Enteric Coated 81 Mg Tablet.) 81 mg PO BEDTIME [facility] Last Admin: 07/26/21 19:41 Dose: 81 mg Documented by: SHERICE Calcium Carbonate/Cholecalciferol (Calcium + Vitamin D 250 Mg Tablet) 500 mg PO DAILY [facility] Last Admin: 07/27/21 09:16 Dose: 500 mg Documented by: RACHEL Digoxin (Digoxin 0.125 Mg Tablet) 0.125 mg PO DAILY [facility] Last Admin: 07/27/21 09:16 Dose: 0.125 mg Documented by: RACHEL Diltiazem HCl (Diltiazem Hcl 30 Mg Tablet) 30 mg PO QID [facility]; Protocol Last Admin: 07/27/21 09:14 Dose: 30 mg Documented by: RACHEL Docusate Sodium (Docusate Sodium 100 Mg Capsule) 100 mg PO BID [facility] Last Admin: 07/27/21 09:17 Dose: Not Given Documented by: RACHEL Non-Admin Reason: Patient Refused Folic Acid (Folic Acid 1 Mg Tablet) 1 mg PO DAILY [facility] Last Admin: 07/27/21 09:16 Dose: 1 mg Documented by: RACHEL Furosemide (Furosemide 40 Mg Tablet) 80 mg PO DAILY [facility]; Protocol Last Admin: 07/27/21 10:30 Dose: Not Given Documented by: DOBROTc Non-Admin Reason: Decreased Blood Pressure Diltiazem HCl 125 mg/ Sodium (Chloride) 125 mls @ 0 mls/hr IVCONT .Q0M [facility]; Protocol Last Titration: 07/25/21 04:22 Dose: 0 mg/hr, 0 mls/hr Documented by: JOSEFA Sodium Chloride (Ns) 1,000 mls @ 100 mls/hr IVCONT .Q10H [facility] Last Admin: 07/27/21 09:18 Dose: Not Given Documented by: RACHEL Non-Admin Reason: IV Running Levothyroxine Sodium (Levothyroxine Sodium 112 Mcg Tablet) 112 mcg PO DAILY@0600 [facility] Last Admin: 07/27/21 04:45 Dose: 112 mcg Documented by: SHERICE Multivitamins/Vitamin C (Multivitamin Tablet) 1 tab PO DAILY [facility] Last Admin: 07/27/21 09:15 Dose: 1 tab Documented by: RACHEL Patient Own Medication ( Rosuvastatin 20 Mg Tablet) 1 each PO BEDTIME [facility] Last Admin: 07/26/21 19:42 Dose: 1 each Documented by: SHERICE Pharmacy Consult (Consult Rx Perform Med Rec) 1 each MISCELLANE ONCE PRN PRN Reason: Consult order Polyethylene Glycol (Polyethylene Glycol 3350 17 Gm Powd.Pack) 17 gm PO DAILY [facility] Last Admin: 07/27/21 09:17 Dose: Not Given Documented by: RACHEL Non-Admin Reason: Patient Refused Sodium Chloride (0.9 % Sodium Chloride Flush 3 Ml Syringe) 3 ml IVFLUSH QSHIFT [facility] Last Admin: 07/27/21 09:14 Dose: Not Given Documented by: RACHEL Non-Admin Reason: IV Running Labs CBC & Chem 7: 07/27/21 08:15 07/27/21 08:15 Labs: Laboratory Results - last 24 hr 07/27/21 07/27/21 07/27/21 08:15 08:15 08:15 MCV 97.2 MCH 32.3 MCHC 33.2 RDW 22.7 H Plt Count 83 L D MPV 12.3 Absolute Nucleated RBC 0.000 Nucleated RBC % (auto) 0.0 Anion Gap 13 Estim Creat Clear Calc 62.3 Estimated GFR > 60 Random Glucose 126 H Calcium 6.4 L D Digoxin 1.1 Assessment and Plan (1) Atrial fibrillation with rapid ventricular response: Status: Acute (2) Heart failure: Status: Acute Assessment and Plan: 75-year-old female patient with recurrent? stage IV lung cancer, currently receiving chemotherapy, recurrent pleural effusion s/p PleurX catheter, chronic AFIB on Eliquis, she presented with weakness and decrease apetite since last chemo and is now in AFIB with RVR 1. Chronic AFIB with RVR-- management continues to b a challenge due to low BP -continue cardizem when blood pressure is controlled, continue dig--check level -poor candidate for invasive intervention due to poor lung function -continue anticoagulation with Apixiban -will discuss feasibility of cardioversion with cardiology 2. Chronic diastolic heart failure, she may be going into failure now, stop IVF, give lasix when BP is stable 3. Hypothyroidism--continue levothyroxine. 4.? Hyperlipidemia --continue statin 5. Recurrent pleural effusion--Drain via Pleurx Catheter 2 to 3 week--drain it today 6/weakness, poor apetite, moderate protein calory malnutrition--supplement, PT recommends rehab 7/Hypotension --due to AFIB with RVR and poor decrease intravascular volume from plerual effusion, NS to keep up, low BP not d/t sepsis DVT prophylaxis,, eliquis Overall prognosis is poor and will discuss goals of care with her today Quality Stroke Does the patient have a stroke diagnosis?: No VTE Prior VTE?: No VTE Risk Level:: Medical - moderate - high VTE Device Contraindication: Treatment Not Indicated VTE Drug Contraindication: N/A - Med Ordered
--- NOTE | 2021-07-27 13:40 | PC.NURSE ---
Order to drain pleural fluid via pleural cath received. Patient was placed on the right side, pleural cath was accessed and 1000ml of dark yellow fluid was drained. Patient tolerated procedure well, no pain and improved breathing reported. Cath site intact, redressed and covered with large tegaderm included in the drain kit.
[2021-07-27] MEDS: 0.9 % Sodium Chloride Flush 3 ML SYRINGE IVFLUSH (16:51)
[2021-07-27] MEDS: Docusate Sodium 100 MG CAPSULE PO (20:05)
[2021-07-27] MEDS: Acetaminophen 325 MG TABLET 650 MG PO (20:06)
[2021-07-27] MEDS: Aspirin Enteric Coated 81 MG TABLET.DR PO (20:07)
[2021-07-28] VITALS (8 sets, daily range): BP systolic 108–149; BP diastolic 57–71; PULSE 68–154; RESP 18–24; TEMP 36.5–37; O2SAT 95–99
[2021-07-28] MEDS: 0.9 % Sodium Chloride Flush 3 ML SYRINGE IVFLUSH ×2 (04:00→09:49)
[2021-07-28] MEDS: Metoprolol Tartrate 5 MG/5 ML VIAL IVPUSH (04:04)
[2021-07-28] MEDS: Levothyroxine Sodium 112 MCG TABLET PO (05:37)
--- NOTE | 2021-07-28 06:19 | PC.NURSE ---
Assumed care of pt at 1900. Pt irritable and just wanted to sleep. Slept in naps during the night. Monitor shows afib with HR 100-120's, frequent PVC's. During the night, pt was assisted OOB to commode. Heart rate up to 150's with activity and would stay in the range of 120-150's. Pt was short of breath. BP 149/69. Dr Gonzalez was notified and Metoprolol 5 mg IV ordered and given with good effect to lower rate to it's baseline 100-120's. Repeat BP was 123/59. Earlier in the shift, BP was low 99/64 and then 108/73. MD aware and considered starting midodrine.
--- NOTE | 2021-07-28 09:30 | HO.PM.IMPN ---
Subjective Subjective Date of Service: 07/28/21 Interval History: f/u on afib with rvr, persistent intermittent tachycardia, blood pressure has been better throughout yesterday and this morning, HR is much better and she feels more comfortable without dyspnea, She has marked swelling in the legs . Review of Systems sob, no chest pain or palpitation, no fever, swollen legs Physical Exam Vital Signs: Vital Signs: Last Vital Signs Temp 97.7 F 07/28/21 07:54 Pulse 68 07/28/21 07:54 Resp 18 07/28/21 07:54 BP 124/57 L 07/28/21 07:54 Pulse Ox 99 07/28/21 07:54 Body Mass Index 27.2 Const: Other: General: AO X 3, no acute distress, anxious Resp: rales at bases CVS: S1,S2, iregular, + leg edema GI: +BS, NT, no distention Skin: No rash Neuro: motor grossly intact Psych: appropriate affect Objective Data Active Medications Acetaminophen (Acetaminophen 325 Mg Tablet) 650 mg PO Q6H PRN PRN Reason: Pain, Mild (Pain Scale 1-3) Last Admin: 07/27/21 20:06 Dose: 650 mg Documented by: AMARA Albuterol Sulfate (Albuterol Sulfate 90 Mcg 8 Gm Inhaler) 2 puff INHALE Q4H PRN PRN Reason: Shortness Of Breath Amiodarone HCl (Amiodarone Hcl 200 Mg Tablet) 400 mg PO BID [facility] Last Admin: 07/27/21 20:07 Dose: 400 mg Documented by: AMARA Apixaban (Apixaban 5 Mg Tablet) 5 mg PO BID [facility] Last Admin: 07/27/21 20:07 Dose: 5 mg Documented by: AMARA Aspirin (Aspirin Enteric Coated 81 Mg Tablet.) 81 mg PO BEDTIME [facility] Last Admin: 07/27/21 20:07 Dose: 81 mg Documented by: AMARA Calcium Carbonate/Cholecalciferol (Calcium + Vitamin D 250 Mg Tablet) 500 mg PO DAILY [facility] Last Admin: 07/27/21 09:16 Dose: 500 mg Documented by: RACHEL Digoxin (Digoxin 0.125 Mg Tablet) 0.125 mg PO DAILY [facility] Last Admin: 07/27/21 09:16 Dose: 0.125 mg Documented by: RACHEL Diltiazem HCl (Diltiazem Hcl 30 Mg Tablet) 30 mg PO QID [facility]; Protocol Last Admin: 07/27/21 20:06 Dose: 30 mg Documented by: AMARA Docusate Sodium (Docusate Sodium 100 Mg Capsule) 100 mg PO BID [facility] Last Admin: 07/27/21 20:05 Dose: 100 mg Documented by: AMARA Folic Acid (Folic Acid 1 Mg Tablet) 1 mg PO DAILY [facility] Last Admin: 07/27/21 09:16 Dose: 1 mg Documented by: RACHEL Furosemide (Furosemide 40 Mg Tablet) 80 mg PO DAILY [facility]; Protocol Last Admin: 07/27/21 10:30 Dose: Not Given Documented by: KATELYN Non-Admin Reason: Decreased Blood Pressure Furosemide (Furosemide 40 Mg/4 Ml Vial) 40 mg IVPUSH DAILY [facility]; Protocol Diltiazem HCl 125 mg/ Sodium (Chloride) 125 mls @ 0 mls/hr IVCONT .Q0M [facility]; Protocol Last Titration: 07/25/21 04:22 Dose: 0 mg/hr, 0 mls/hr Documented by: JOSEFA Levothyroxine Sodium (Levothyroxine Sodium 112 Mcg Tablet) 112 mcg PO DAILY@0600 [facility] Last Admin: 07/28/21 05:37 Dose: 112 mcg Documented by: AMARA Multivitamins/Vitamin C (Multivitamin Tablet) 1 tab PO DAILY [facility] Last Admin: 07/27/21 09:15 Dose: 1 tab Documented by: RACHEL Patient Own Medication ( Rosuvastatin 20 Mg Tablet) 1 each PO BEDTIME [facility] Last Admin: 07/27/21 20:10 Dose: 1 each Documented by: AMARA Pharmacy Consult (Consult Rx Perform Med Rec) 1 each MISCELLANE ONCE PRN PRN Reason: Consult order Polyethylene Glycol (Polyethylene Glycol 3350 17 Gm Powd.Pack) 17 gm PO DAILY [facility] Last Admin: 07/27/21 09:17 Dose: Not Given Documented by: RACHEL Non-Admin Reason: Patient Refused Sodium Chloride (0.9 % Sodium Chloride Flush 3 Ml Syringe) 3 ml IVFLUSH QSHIFT [facility] Last Admin: 07/28/21 04:00 Dose: 3 ml Documented by: AMARA Labs CBC & Chem 7: 07/27/21 08:15 07/27/21 08:15 Labs: Laboratory Results - last 24 hr 07/27/21 08:15 Calcium 6.4 L D Assessment and Plan (1) Atrial fibrillation with rapid ventricular response: Status: Acute (2) Heart failure: Status: Acute (3) Pleural effusion: Status: Acute Assessment and Plan: 75-year-old female patient with recurrent? stage IV lung cancer, currently receiving chemotherapy, recurrent pleural effusion s/p PleurX catheter, chronic AFIB on Eliquis, she presented with weakness and decrease apetite since last chemo and is now in AFIB with RVR 1. Chronic AFIB with RVR-- management continues to b a challenge due to tenous BP a -continue cardizem when blood pressure is controlled, continue dig-- -poor candidate for invasive intervention due to poor lung function -continue anticoagulation with Apixiban -will discuss feasibility of cardioversion with cardiology 2. Chronic diastolic heart failure, clinically fluid overload, start IV diuretics 3. Hypothyroidism--continue levothyroxine. 4.? Hyperlipidemia --continue statin 5. Recurrent pleural effusion--Drain via Pleurx Catheter 2 to 3 week--last drained 08/26 6/weakness, poor apetite, moderate protein calory malnutrition--supplement, PT recommends rehab 7/Hypotension --due to AFIB with RVR and poor decrease intravascular volume from plerual effusion, NS to keep up, low BP not d/t sepsis DVT prophylaxis,, eliquis Overall prognosis is poor and will continuing goals of care discussion Quality Stroke Does the patient have a stroke diagnosis?: No VTE Prior VTE?: No VTE Risk Level:: Medical - moderate - high VTE Device Contraindication: Treatment Not Indicated VTE Drug Contraindication: N/A - Med Ordered
[2021-07-28] MEDS: Amiodarone HCL 200 MG TABLET 400 MG PO (09:48)
[2021-07-28] MEDS: Apixaban 5 MG TABLET PO (09:48)
[2021-07-28] MEDS: Folic Acid 1 MG TABLET PO (09:48)
[2021-07-28] MEDS: Digoxin 0.125 MG TABLET PO (09:48)
[2021-07-28] MEDS: dilTIAZem HCL 30 MG TABLET PO ×3 (09:48→16:28)
[2021-07-28] MEDS: Multivitamin TABLET 1 TAB PO (09:49)
[2021-07-28] MEDS: Calcium + Vitamin D 250 MG TABLET 500 MG PO (09:49)
[2021-07-28] MEDS: Furosemide 40 MG/4 ML VIAL IVPUSH (10:01)
--- NOTE | 2021-07-28 10:22 | PM.DS ---
DS: Providers Provider Date of Service: 07/28/21 Date of admission: 07/23/21 17:13 Primary care physician: Jamarcus Garnica MD Consults: 07/24/21 19:46 Consult to Cardiology Routine Consulting Provider: Spike Whiting Reason for consultation: Afib with RVR; soft BP; hx CHF 07/27/21 13:35 Consult to Pulmonology Routine Consulting Provider: Trey Moise Reason for consultation: recurrent pleural effusion DS: Diagnosis Discharge Diagnosis (1) Atrial fibrillation with rapid ventricular response: Status: Acute (2) Heart failure: (3) Pleural effusion: DS: Summary Hospital Course Hospital Course: Admission HPI: Chief Complaint: weakness, AFIB with RVR 76-year-old female? with? recurring ? stage IV lung cancer, status post left lower lobe wedge resection with a positive lymph node, and started? chemotherapy on May 17, her last chemo was last monday July 19, 2021. She has chronic AFIB and is on eliquis for stroke prevention. She she was recently admitted to hospital from June 14 through of this year for shortness of breath related to CHF and recurrent plerual effusion, she has? PleurX catheter for draining at home.? She presented to the ED? on this occasion because of increasing weakness and anorexia. Her apetite has been very poor and hardly eating or drinking . The plan was for her to be transfered to a short term rehab but she went into AFIB with RVR with HR up to 150s and has been initiated on IV cardizem drip and now needs to be be admitted.? She doesn't feel palpitation, has no chest pain, no sob. Hospital course: Vilma bernal presented to the ED with weakness and noted to be in AFIB with RVR and was inititated on IV cardizem for rate control but this lead to profound hypotension with systolic BP in 80s, necessitating IVF to bring BP back pain, she had been on cardiazem at home and following cardiology evaluation evaluation was initated on Digoxin present level of 1 and ultimately started amiodarone load, oral cardizem 30 qs and yet contiues to be very tachycadic and this point treatment option disucssed include AV lavonne ablation and thus trasfer to [facility] for this, Dr. James our television equipment operator has discussed this with Dr Davison who has accepted the patient. Presently Heart rate around 130s to 140s, BP 124/71 and she appear assymptomatic yet persitent tachycardia is leading to heart failure. She is on Eliquis for stroke prevention 2. Chronic diastolic heart failure, clinically fluid overload, received IV Lasix 40 mg today, typically on 40 mg orally 3. Hypothyroidism--continue levothyroxine. 4.? Hyperlipidemia --continue statin 5. Recurrent malignant pleural effusion--Drain via Pleurx Catheter 2 to 3 week--last drained 08/26, next drain around Thursday or Thursday 6/weakness, poor apetite, moderate protein calory malnutrition--supplement, PT recommends? rehab 7/Stage 4 lung--presently on Chemo at [facility] (Jerry Christianson and Vickie) Ultimately to go to [facility] Time Spent with Patient Time attestation: Total time spent providing and/or coordinating discharge services: Discharge coordination time: Greater than 30 minutes Quality: Stroke Does the patient have a stroke diagnosis?: No Physical Exam Vital Signs: Vital Signs: Last Vital Signs Temp 97.7 F 07/28/21 07:54 Pulse 141 H 07/28/21 09:48 Resp 18 07/28/21 07:54 BP 124/71 07/28/21 09:48 Pulse Ox 99 07/28/21 07:54 Body Mass Index 27.2 Const: Other: General: AO X 3, no acute distress, anxious Resp:? rales at bases CVS: S1,S2, iregular, + leg edema GI: +BS, NT, no distention Skin: No rash Neuro:? motor grossly intact Psych: appropriate affect DS: Data Data Completed and Pending Completed studies during hospitalization [Text1]: Procedures Drainage of Left Pleural Cavity with Drainage Device, Percutaneous Approach (06/14/21) Drainage of Left Pleural Cavity, Percutaneous Approach (05/21/21) Discharge Plan Discharge Anticipated Discharge Date/Time: 07/28/21 10:14 Patient Disposition: Xfer Acute Care Hospital Discharge Diagnosis: AFIB with RVR, Heart failure Referrals: Jamarcus Garnica MD [Primary Care Provider] - 1 Week Discharge Medications: New polyethylene glycol 3350 17 gram Powder In Packet 17 g PO DAILY Qty: 30 RF: 0 amiodarone 200 mg Tablet 400 mg PO BID Qty: 20 RF: 0 docusate sodium 100 mg Capsule 100 mg PO BID Qty: 60 RF: 0 digoxin 125 mcg (0.125 mg) Tablet 125 mcg PO DAILY Qty: 14 RF: 0 diltiazem HCl 30 mg Tablet 30 mg PO QID Qty: 60 RF: 0 Continued folic acid 1 mg Tablet 1 mg PO DAILY Qty: 90 RF: 4 calcium carbonate-vitamin D3 [Calcium 600 + D(3)] 600 mg(1,500mg) -200 unit Tablet 1 tab PO DAILY Qty: 90 RF: 4 ProAir RespiClick 90 mcg/actuation aerosol powdr breath activated 2 puff PO Q4H PRN (Reason: Shortness Of Breath) RF: 0 Eliquis 5 mg tablet 5 mg PO BID RF: 0 rosuvastatin 20 mg tablet 20 mg PO DAILY RF: 0 aspirin 81 mg tablet,delayed release (DR/EC) 81 mg PO DAILY RF: 0 furosemide 40 mg tablet 80 mg PO DAILY RF: 0 levothyroxine 112 mcg tablet 112 mcg PO DAILY@0630 RF: 0 Centrum Silver 0.4-300-250 mg-mcg-mcg tablet 1 tab PO DAILY RF: 0 Discontinued metoprolol succinate 50 mg tablet extended release 24 hr 1 tab PO DAILY RF: 0 diltiazem HCl [DILT-XR] 120 mg capsule,ext.rel 24h degradable 120 mg PO DAILY RF: 0 diltiazem HCl 240 mg capsule,ext.rel 24h degradable 240 mg PO BEDTIME RF: 0 Discharge Orders: Discharge Order (Routine); Ordered 07/28/21 Ordered By: Aly Traylor Diet: advance to usual diet Activity on Discharge: As tolerated Stand Alone Forms: Patient Portal Discharge page Care Plan Goals: Controll of atrial fibiration Health Concerns: Difficult to control AFIB Plan of Treatment: Transfer to [facility] for AV lavonne ablation Assessment: as above Discharge Date/Time: 07/28/21 17:03
--- NOTE | 2021-07-28 11:08 | P.PNCA_ITS ---
Subjective Subjective Date of Service: 07/28/21 Interval history: Feels about the same. No new complaints. Review of Systems Review of Systems Yes all other systems are reviewed and are negative Cardiovascular: Reports as per HPI, Reports no additional cardiovascular complaints, Denies acrocyanosis, Denies cool extremities, Denies painful fingertips, Denies chest pain, Denies chest pain at rest, Denies diaphoresis, Denies syncope, Denies irregular heart rhythm, Denies claudication, Denies leg edema, Denies lightheadedness, Denies palpitations and Reports dyspnea Respiratory: Reports dyspnea Denies syncope Endocrine: Denies palpitations Physical Exam Vital Signs: Last Vital Signs Temp 97.7 F 07/28/21 07:54 Pulse 141 H 07/28/21 09:48 Resp 18 07/28/21 07:54 BP 124/71 07/28/21 09:48 Pulse Ox 99 07/28/21 07:54 Body Mass Index 27.2 Const Other: short of breath, pursed lip breathing General: cooperative HENMT Other: Unremarkable Neck Neck: Yes normal visual inspection Chest Chest palpation & inspection: normal inspection of the chest Resp Auscultation: wheezes and diminished lung sounds Cardio Jugular venous distension: no JVD Palpation: normal PMI Heart sounds: S1 normal heart sound present, S2 normal heart sound present, no gallops, no murmurs and no rubs GI Palpation (GI): Soft to palpation Back/Spine/Pelvis Other: unremarkable Skin General skin exam: no rashes or lesions noted Neuro Cranial nerves: Yes Other cranial nerve findings present Extrem General: Yes pedal edema (trace-1+ edema) Psych Mental Status: other Objective Labs and Meds Result diagrams: 07/27/21 08:15 07/27/21 08:15 Progress Note: A&P Assessment and plan (1) Atrial fibrillation with rapid ventricular response: Status: Acute (2) Adenocarcinoma of left lung, stage 4: Status: Acute (3) Arterial hypotension: Status: Acute Assessment and Plan: Atrial fibrillation with poorly controlled rates most likely driven by underlying pulmonary issues and very low pulmonary reserve. Due to low blood pressure, unable to titrate her medications. Discussed with Dr. Moise. She has poor prognosis from the lung cancer itself. We may use amiodarone for rate control purposes. Also on Digoxin, Cardizem, Eliquis. Discussed about about difficulty in controlling Afib rates and only other options are AV lavonne ablation/pacer implant. EP will need to evaluate for this. She wants everything done and not interested in palliative care. Hence, [place] [facility] [place] Tx today when bed available. Fall Risk Details Current Medications: Current Medications Acetaminophen (Acetaminophen 325 Mg Tablet) 650 mg PO Q6H PRN PRN Reason: Pain, Mild (Pain Scale 1-3) Last Admin: 07/27/21 20:06 Dose: 650 mg Documented by: Albuterol Sulfate (Albuterol Sulfate 90 Mcg 8 Gm Inhaler) 2 puff INHALE Q4H PRN PRN Reason: Shortness Of Breath Amiodarone HCl (Amiodarone Hcl 200 Mg Tablet) 400 mg PO BID [facility] Last Admin: 07/28/21 09:48 Dose: 400 mg Documented by: Apixaban (Apixaban 5 Mg Tablet) 5 mg PO BID [facility] Last Admin: 07/28/21 09:48 Dose: 5 mg Documented by: Aspirin (Aspirin Enteric Coated 81 Mg Tablet.) 81 mg PO BEDTIME [facility] Last Admin: 07/27/21 20:07 Dose: 81 mg Documented by: Calcium Carbonate/Cholecalciferol (Calcium + Vitamin D 250 Mg Tablet) 500 mg PO DAILY [facility] Last Admin: 07/28/21 09:49 Dose: 500 mg Documented by: Digoxin (Digoxin 0.125 Mg Tablet) 0.125 mg PO DAILY [facility] Last Admin: 07/28/21 09:48 Dose: 0.125 mg Documented by: Diltiazem HCl (Diltiazem Hcl 30 Mg Tablet) 30 mg PO QID [facility]; Protocol Last Admin: 07/28/21 09:48 Dose: 30 mg Documented by: Docusate Sodium (Docusate Sodium 100 Mg Capsule) 100 mg PO BID [facility] Last Admin: 07/28/21 09:50 Dose: Not Given Documented by: Folic Acid (Folic Acid 1 Mg Tablet) 1 mg PO DAILY [facility] Last Admin: 07/28/21 09:48 Dose: 1 mg Documented by: Furosemide (Furosemide 40 Mg Tablet) 80 mg PO DAILY [facility]; Protocol Last Admin: 07/28/21 09:55 Dose: Not Given Documented by: Furosemide (Furosemide 40 Mg/4 Ml Vial) 40 mg IVPUSH DAILY [facility]; Protocol Last Admin: 07/28/21 10:01 Dose: 40 mg Documented by: Diltiazem HCl 125 mg/ Sodium (Chloride) 125 mls @ 0 mls/hr IVCONT .Q0M [facility]; Protocol Last Titration: 07/25/21 04:22 Dose: 0 mg/hr, 0 mls/hr Documented by: Levothyroxine Sodium (Levothyroxine Sodium 112 Mcg Tablet) 112 mcg PO DAILY@0600 [facility] Last Admin: 07/28/21 05:37 Dose: 112 mcg Documented by: Multivitamins/Vitamin C (Multivitamin Tablet) 1 tab PO DAILY [facility] Last Admin: 07/28/21 09:49 Dose: 1 tab Documented by: Patient Own Medication ( Rosuvastatin 20 Mg Tablet) 1 each PO BEDTIME [facility] Last Admin: 07/27/21 20:10 Dose: 1 each Documented by: Pharmacy Consult (Consult Rx Perform Med Rec) 1 each MISCELLANE ONCE PRN PRN Reason: Consult order Polyethylene Glycol (Polyethylene Glycol 3350 17 Gm Powd.Pack) 17 gm PO DAILY [facility] Last Admin: 07/28/21 09:50 Dose: Not Given Documented by: Sodium Chloride (0.9 % Sodium Chloride Flush 3 Ml Syringe) 3 ml IVFLUSH QSHIFT [facility] Last Admin: 07/28/21 09:49 Dose: 3 ml Documented by: Time Spent With Patient Time: Total time spent is greater than 50% in coordination of care (as documented) at patient's floor/unit and/or counseling patient: Time with patient: less than 15 minutes Progress Note: Quality Stroke Does the patient have a stroke diagnosis?: No Procedures Date of Service Date of Service: 07/28/21
--- NOTE | 2021-07-28 11:32 | PM.CNPUL ---
History of Present Illness History of Present Illness Consult date: 07/28/21 Chief complaint: AFIB with RVR, weakness Narrative: This is an inpatient pulmonary consultation. The patient is a 76-year-old female? with? recurring ? stage IV lung cancer, status post left lower lobe wedge resection with a positive lymph node, and started? chemotherapy on May 17, her last chemo was last monday July 19, 2021. She has chronic AFIB and is on eliquis for stroke prevention. She she was recently admitted to hospital from June 14 through of this year for shortness of breath related to CHF and recurrent plerual effusion, she has? PleurX catheter for draining at home.? She presented to the ED? on this occasion because of increasing weakness and anorexia. Her apetite has been very poor and hardly eating or drinking . The plan was for her to be transfered to a short term rehab but she went into AFIB with RVR with HR up to 150s with systolic BP in 80s, necessitating IVF to bring BP back pain, she had been on cardiazem at home and following cardiology evaluation evaluation was initated on Digoxin present level of 1 and ultimately started amiodarone load, oral cardizem 30 qs? and yet contiues to be very tachycadic and this point treatment option disucssed include AV lavonne ablation and thus trasfer to [facility]. The patient understands that she has terminal cancer. 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 The patient also has metastatic cancer to bone has a PleurX catheter that she drains. Therefore, she does have extensive cancer. Based on her worsening comorbidities will be very difficult for her to tolerate any additional chemotherapy or even radiation. Based on her significant resistant AFib she was started on amiodarone with the understanding that this could also worsen her respiratory capacity even further. Also to note the patient did have a attempt for a lung resection under general anesthesia that resulted in hypotension and an SVT. The procedure had to be terminated early. I spoke to the patient about her poor prognosis and she understands that this cancers progressive and likely contributing to the ongoing cardiac issues. We spoke about hospice care. But, the patient says that she is not ready to go into hospice and she is not ready to commit to no further aggressive therapy. Review of Systems Review of Systems: Gen: no fever Resp: no sob, no cough CV: no chest, no [place], + leg edema, no palpitations. GI: No n/v, no abd pain Neuro: No confusion Yes all other systems are reviewed and are negative Constitutional: Constitutional: Reports weakness and Reports weight loss Cardiovascular: Cardiovascular: Reports palpitations and Reports dyspnea Respiratory: Respiratory: Reports dyspnea Gastrointestinal: Gastrointestinal: Reports early satiety Musculoskeletal: Musculoskeletal: Reports atrophy Neurologic: Reports weakness Endocrine: Endocrine: Reports palpitations [facility] Past Medical History Medical History Acute on chronic diastolic (congestive) heart failure Adenocarcinoma of left lung, stage 4 (~01/2021) Adenocarcinoma of left lung, stage 4 Atrial fibrillation (~09/2019) Back pain CAD (coronary artery disease) CHF (congestive heart failure) COPD (chronic obstructive pulmonary disease) Heart failure History of [place] (myocardial infarction) (~2002) History of pleural effusion (~09/2019) Hypertension Hypothyroidism Malignant neoplasm of lower lobe, left bronchus or lung (~01/2021) Osteoporosis Persistent atrial fibrillation Personal history of nicotine dependence Pleural effusion Pneumonia Pulmonary nodules Family History Family History Mother CAD (coronary artery disease) Surgical History Surgical History History of basal cell carcinoma excision (~04/02/98) History of cardioversion (~12/07/19) History of heart artery stent History of lung surgery (~01/22/21) Social History Social History Household Members: None Housing: Apartment Do you presently have visiting nurse or other home services: No Alcohol intake: unknown Patient Tobacco Use Status: Former Tobacco user Tobacco use type: Cigarette Currently Displaying Signs/Symptoms of Drug Intoxication Withdrawal: No Advance Directives: No Do you have thoughts of harming others: None Do you have a plan to hurt others: No Plan service: No Current occupational status: retired Meds Allergies Allergy/AdvReac Type Severity Reaction Status Date / Time codeine [CODEINE] Allergy Severe SEVERE Verified 07/22/21 15:54 HEADACHE latex [LATEX] Allergy Intermediate RASH/HIVES Verified 07/22/21 15:54 atorvastatin [From Lipitor] AdvReac Muscle Pain Verified 07/22/21 15:54 Active Medications: Current Medications Acetaminophen (Acetaminophen 325 Mg Tablet) 650 mg PO Q6H PRN PRN Reason: Pain, Mild (Pain Scale 1-3) Last Admin: 07/27/21 20:06 Dose: 650 mg Documented by: Albuterol Sulfate (Albuterol Sulfate 90 Mcg 8 Gm Inhaler) 2 puff INHALE Q4H PRN PRN Reason: Shortness Of Breath Amiodarone HCl (Amiodarone Hcl 200 Mg Tablet) 400 mg PO BID [facility] Last Admin: 07/28/21 09:48 Dose: 400 mg Documented by: Apixaban (Apixaban 5 Mg Tablet) 5 mg PO BID [facility] Last Admin: 07/28/21 09:48 Dose: 5 mg Documented by: Aspirin (Aspirin Enteric Coated 81 Mg Tablet.) 81 mg PO BEDTIME [facility] Last Admin: 07/27/21 20:07 Dose: 81 mg Documented by: Calcium Carbonate/Cholecalciferol (Calcium + Vitamin D 250 Mg Tablet) 500 mg PO DAILY [facility] Last Admin: 07/28/21 09:49 Dose: 500 mg Documented by: Digoxin (Digoxin 0.125 Mg Tablet) 0.125 mg PO DAILY [facility] Last Admin: 07/28/21 09:48 Dose: 0.125 mg Documented by: Diltiazem HCl (Diltiazem Hcl 30 Mg Tablet) 30 mg PO QID [facility]; Protocol Last Admin: 07/28/21 09:48 Dose: 30 mg Documented by: Docusate Sodium (Docusate Sodium 100 Mg Capsule) 100 mg PO BID [facility] Last Admin: 07/28/21 09:50 Dose: Not Given Documented by: Folic Acid (Folic Acid 1 Mg Tablet) 1 mg PO DAILY [facility] Last Admin: 07/28/21 09:48 Dose: 1 mg Documented by: Furosemide (Furosemide 40 Mg Tablet) 80 mg PO DAILY [facility]; Protocol Last Admin: 07/28/21 09:55 Dose: Not Given Documented by: Furosemide (Furosemide 40 Mg/4 Ml Vial) 40 mg IVPUSH DAILY [facility]; Protocol Last Admin: 07/28/21 10:01 Dose: 40 mg Documented by: Diltiazem HCl 125 mg/ Sodium (Chloride) 125 mls @ 0 mls/hr IVCONT .Q0M [facility]; Protocol Last Titration: 07/25/21 04:22 Dose: 0 mg/hr, 0 mls/hr Documented by: Levothyroxine Sodium (Levothyroxine Sodium 112 Mcg Tablet) 112 mcg PO DAILY@0600 [facility] Last Admin: 07/28/21 05:37 Dose: 112 mcg Documented by: Multivitamins/Vitamin C (Multivitamin Tablet) 1 tab PO DAILY [facility] Last Admin: 07/28/21 09:49 Dose: 1 tab Documented by: Patient Own Medication ( Rosuvastatin 20 Mg Tablet) 1 each PO BEDTIME [facility] Last Admin: 07/27/21 20:10 Dose: 1 each Documented by: Pharmacy Consult (Consult Rx Perform Med Rec) 1 each MISCELLANE ONCE PRN PRN Reason: Consult order Polyethylene Glycol (Polyethylene Glycol 3350 17 Gm Powd.Pack) 17 gm PO DAILY [facility] Last Admin: 07/28/21 09:50 Dose: Not Given Documented by: Sodium Chloride (0.9 % Sodium Chloride Flush 3 Ml Syringe) 3 ml IVFLUSH QSHIFT [facility] Last Admin: 07/28/21 09:49 Dose: 3 ml Documented by: Home Medications Medication Instructions Recorded Confirmed Last Taken Type apixaban 5 mg tablet (Eliquis) 5 mg PO BID 11/30/20 07/23/21 07/22/21 History aspirin 81 mg tablet,delayed 81 mg PO DAILY 11/30/20 07/23/21 07/22/21 History release rosuvastatin 20 mg tablet 20 mg PO DAILY 11/30/20 07/23/21 07/22/21 History levothyroxine 112 mcg tablet 112 mcg PO DAILY@0630 02/08/21 07/23/21 07/22/21 History ykpbplqu-bba-mlzzr acid 0.4 1 tab PO DAILY 02/08/21 07/23/21 07/22/21 History mg-lycopene 300 mcg-lutein 250 mcg tablet (Centrum Silver) albuterol sulfate 90 mcg/actuation 2 puff PO Q4H PRN 05/21/21 07/23/21 Unknown History breath activated powder inhaler (ProAir RespiClick) furosemide 40 mg tablet 80 mg PO DAILY 06/13/21 07/23/21 07/22/21 History Physical Exam Vital Signs: Vital Signs: Last Vital Signs Temp 98.6 F 07/28/21 11:30 Pulse 122 H 07/28/21 11:30 Resp 22 H 07/28/21 11:30 BP 108/68 07/28/21 11:30 Pulse Ox 95 07/28/21 11:30 Body Mass Index 27.2 Const: General: alert, in distress mild and respiratory, ill appearing and tired appearing Neck: Neck: Yes normal visual inspection, Yes full ROM and Yes no lymphadenopathy Chest: Chest palpation & inspection: normal inspection of the chest Resp: Auscultation: diminished lung sounds Cardio: Rate: tachycardic Heart sounds: S1 normal heart sound present and S2 normal heart sound present GI: Palpation (GI): Soft to palpation and nontender Auscultation: normal bowel sounds Skin: General skin exam: rashes and/or lesions noted Results Laboratory Findings CBC and BMP: 07/27/21 08:15 07/27/21 08:15 Abnormal lab findings: Abnormal Labs 07/22/21 07/22/21 07/22/21 20:18 20:18 20:18 WBC RBC 2.83 L Hgb 9.1 L Hct 27.3 L RDW 23.5 H Plt Count Immature Gran % (Auto) 0.5 H Neut % (Auto) 91.7 H Lymph % (Auto) 6.0 L [place] % (Auto) 1.7 L Lymph # (Auto) 0.5 L Abs Immat Gran (auto) 0.04 H Absolute Nucleated RBC 0.110 H Nucleated RBC % (auto) 1.3 H Chloride Carbon Dioxide 20 L Anion Gap BUN 38 H D Random Glucose 141 H Calcium 7.4 L AST 37 H Troponin I High Sens B-Natriuretic Peptide 457 H Total Protein 5.5 L Albumin 3.2 L Digoxin 07/23/21 07/23/21 07/25/21 16:36 18:09 11:29 WBC RBC Hgb Hct RDW Plt Count Immature Gran % (Auto) Neut % (Auto) Lymph % (Auto) [place] % (Auto) Lymph # (Auto) Abs Immat Gran (auto) Absolute Nucleated RBC Nucleated RBC % (auto) Chloride Carbon Dioxide Anion Gap 11 L BUN 21 H Random Glucose Calcium 7.1 L AST Troponin I High Sens 23.5 H* D B-Natriuretic Peptide Total Protein Albumin Digoxin < 0.3 L 07/27/21 07/27/21 08:15 08:15 WBC 2.4 L RBC 2.48 L Hgb 8.0 L Hct 24.1 L RDW 22.7 H Plt Count 83 L D Immature Gran % (Auto) Neut % (Auto) Lymph % (Auto) [place] % (Auto) Lymph # (Auto) Abs Immat Gran (auto) Absolute Nucleated RBC Nucleated RBC % (auto) Chloride 112 H Carbon Dioxide 20 L Anion Gap BUN Random Glucose 126 H Calcium 6.4 L D AST Troponin I High Sens B-Natriuretic Peptide Total Protein Albumin Digoxin Assessment and Plan (1) Pre-op evaluation: Status: Acute (2) Adenocarcinoma of left lung, stage 4: Status: Acute (3) Pleural effusion: Status: Acute (4) Atrial fibrillation with rapid ventricular response: Status: Acute The patient carries a very poor prognosis with stage IV lung cancer now with known bony metastases and lymphogenic carcinomatosis. Now with significant atrial fibrillation not responding to anti rhythmic therapy considering AV ablation and pacemaker. Also has had difficulties tolerating surgery with anesthesia in the recent past developing hypotension and nonsustained V-tach. Based on the patient's pulmonary capacity and progression of cancer the patient carries a high risk for [place]-operative pulmonary complications which include: Worsening hypoxia, pneumonia, prolonged mechanical ventilation and . Recommendations: -hospice consultation to discuss goals of care should be again affered to the patient. May benefit from speaking to her [facility] team for fuether details for her cancer progression. -continue PleurX catheter drainage -continue oxygen supplementation to maintain a pulse ox above 90% -provide alternatives to surgery to deal with the cardiac arrhythmia based on her high risk for pulmonary complications -further recommendations based on forthcoming data Procedures Date of Service Date of Service: 07/28/21
--- NOTE | 2021-07-28 11:44 | MHC.CM.PN ---
DC TO [facility]IA AMBULANCE
[2021-07-28] MEDS: Acetaminophen 325 MG TABLET 650 MG PO (16:28)
== END 2021-07-28 17:03 | disposition short-term general hospital (02) | DRG 309 ==
LOC: HO.ED 07-23 16:13 → HO.EDOVER 07-23 17:20 → HO.IMC 07-24 00:29
PROVIDERS: Physician Assistant; Admitting Provider Internal Medicine; Emergency Provider Internal Medicine; PCP Internal Medicine; Visit Provider Internal Medicine
DX: I48.20 Chronic atrial fibrillation, unspecified (principal); C34.32 Malignant neoplasm of lower lobe, left bronchus or lung; I50.32 Chronic diastolic (congestive) heart failure; E44.0 Moderate protein-calorie malnutrition; J91.0 Malignant pleural effusion; E03.9 Hypothyroidism, unspecified; Z20.822 Contact with and (suspected) exposure to COVID-19; I95.89 Other hypotension; I11.0 Hypertensive heart disease with heart failure; I25.10 Atherosclerotic heart disease of native coronary artery without angina pectoris; I25.2 Old myocardial infarction; E78.5 Hyperlipidemia, unspecified; Z68.27 Body mass index [BMI] 27.0-27.9, adult; Z91.040 Latex allergy status; Z79.01 Long term (current) use of anticoagulants; Z79.890 Hormone replacement therapy; Z79.899 Other long term (current) drug therapy
CPT/HCPCS: 0241U; 36415; 71045; 71046; 80048; 80053; 80162; 83735; 83880; 84484; 85025; 85027; 93005; 96361; 96365; 96375; 96376; 97110; 97162; 99285; J1940